=== PATIENT | male | born 1930 | race Caucasian/White ===

== ENCOUNTER 2017-07-12 21:14 | Inpatient (IN) | payer OTHER ==
[2017-07-12] MEDS ORDERED: morphine CARPU-JECT 4 MG/1 ML DISP.SYRIN IVPUSH ONE (22:34)
[2017-07-12] MEDS ORDERED: morphine CARPU-JECT 4 MG/1 ML DISP.SYRIN ONE (22:40)
[2017-07-12 23:17] LABS: BASOPHIL 0.4 % (0-2.0); EOSINOPHIL 1.3 % (0-4.5); MCH 33.1 pg (25.7-33.7); MCHC 34.1 g/dl (32.0-35.9); MEAN CELL VOLUME 97.1 fl (80-96); MEAN PLT VOLUME 7.5 fl (7.5-11.1); NEUTROPHILS 81.2 % (42.8-82.8); PLATELET COUNT 265 K/MM3 (134-434); RDW 13.4 % (11.9-15.9); WHITE BLOOD COUNT 10.4 K/mm3 (4.0-10.0)
--- NOTE | 2017-07-12 23:28 | PDOC ---
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 Patient reports that he " was making a turn around a corner" when he fell and hit his head on his dressed. He has a history of falls No recent travel or sick contacts. PAST MEDICAL HISTORY: Denies past medical history FAMILY HISTORY: Denies SOCIAL HISTORY: Denies tobacco, alcohol, illicit drug use. SURGICAL HISTORY: Denies ALLERGIES: No known drug allergies REVIEW OF SYSTEMS General/Constitutional: Denies fever or chills. Denies weakness, weight change. HEENT: Denies change in vision. Denies ear pain or discharge. Denies sore throat. Cardiovascular: Denies chest pain or shortness of breath. Respiratory: Denies cough, wheezing, or hemoptysis. Gastrointestinal: Denies nausea, vomiting, diarrhea or constipation. Denies rectal bleeding. Genitourinary: Denies dysuria, frequency, or change in urination. Musculoskeletal: Denies joint or muscle swelling or pain. Denies neck or back pain. Skin and breasts: Denies rash or easy bruising. Neurologic: Denies headache, vertigo, loss of consciousness, or loss of sensation. Psychiatric: Denies depression or anxiety. Endocrine: Denies increased thirst. Denies abnormal weight change. Hematologic/Lymphatic: Denies anemia, easy bleeding, or history of blood clots. Allergic/Immunologic: Denies hives or skin allergy. Denies latex allergy. PHYSICAL EXAM General Appearance: Well-appearing, appropriately dressed. No apparent distress. HEENT: EOMI, PERRLA, normal ENT inspection, normal voice, TMs normal, pharynx normal. No conjunctival pallor. No photophobia, scleral icterus. Neck: Supple. Trachea midline. No tenderness, rigidity, carotid bruit, stridor , lymphadenopathy, or thyromegaly. Respiratory/Chest: Lungs CTAB. No shortness of breath, chest tenderness, respiratory distress, accessory muscle use. No crackles, rales, rhonchi, stridor , wheezing, dullness Cardiovascular: RRR. S1, S2. No JVD, murmur, bradycardia, tachycardia. Vascular Pulses: Dorsalis-Pedis (R): 2+, Dorsalis-Pedis (L): 2+ Gastrointestinal/Abdominal: Normal bowel sounds. Abdomen soft, non-distended. No tenderness or rebound tenderness. No organomegaly, pulsatile mass, guarding , hernia, hepatomegaly, splenomegaly. Lymphatic: No adenopathy, tenderness. Musculoskeletal/Extremities: Normal inspection. FROM of all extremities, normal capillary refill. Pelvis Stable. No CVA tenderness. No tenderness to extremities, pedal edema, swelling, erythema or deformity. Integumentary: Appropriate color, dry, warm. No cyanosis, erythema, jaundice or rash Neurologic: handkerchief folder [id number] intact. Fully oriented, alert. Appropriate mood/affect. Motor strength 5/5. No appreciable EOM palsy, facial droop or sensory deficit. Past History - Past Medical History Allergies/Adverse Reactions: Allergies Allergy/AdvReac Type Severity Reaction Status Date / Time No Known Allergies Allergy Verified 07/12/17 22:32 Home Medications: Ambulatory Orders Levetiracetam [Keppra -] 500 mg PO BID 02/18/14 Simvastatin [Zocor -] 40 mg PO HS 02/18/14 Tamsulosin HCl [Flomax -] 0.4 mg PO DAILY 02/18/14 Omeprazole 40 mg PO ACBK 03/12/14 Clopidogrel Bisulfate [Clopidogrel] 75 mg PO DAILY 05/07/14 Metoprolol Succinate [Toprol XL -] 100 mg PO HS 05/07/14 Ergocalciferol (Vitamin D2) [Drisdol] 10,000 units PO WEEKLY 07/11/16 Finasteride [Proscar -] 5 mg PO DAILY 07/11/16 Carbidopa/Levodopa *Cr* 25/100 [Sinemet *Cr* 25/100 -] 1 combo PO BID 07/12/16 Phenytoin Na Extended [Dilantin -] 100 mg PO BID 07/12/16 Docusate Sodium [Colace -] 100 mg PO BID #60 capsule 07/14/16 Polyethylene Glycol 3350 [Miralax 119 gm Btl -] 17 gm PO DAILY #1 bottle Acetaminophen [Tylenol .Regular Strength -] 650 mg PO Q4H PRN #0 tablet Albuterol 0.083% Nebulizer Aida [Ventolin 0.083% Nebulizer Soln -] 1 amp NEB Q6H PRN #30 amp 09/14/16 Albuterol Sulfate Inhaler - [Ventolin HFA Inhaler -] 1 puff IH Q6H PRN #1 inhaler 09/14/16 Cefuroxime Axetil [Ceftin -] 500 mg PO BID #10 tablet 09/14/16 Anemia: No Asthma: No Cancer: No Cardiac Disorders: No CVA: Yes COPD: No CHF: No Dementia: No Diabetes: No GI Disorders: (GI bleed) Disorders: Yes (BPH) HTN: Yes Hypercholesterolemia: Yes Liver Disease: No Psychiatric Problems: Yes (anxiety) Seizures: Yes Thyroid Disease: No - Surgical History Abdominal Surgery: No Appendectomy: No Cardiac Surgery: No Cholecystectomy: No Lung Surgery: No Neurologic Surgery: No Orthopedic Surgery: No - Immunization History Td Vaccination: Yes TDAP Vaccination: Yes Immunization Up to Date: Yes - Psycho/Social/Smoking Cessation Hx Anxiety: No Suicidal Ideation: No Smoking Status: No Smoking History: Unknown if ever smoked Have you smoked in the past 12 months: No Number of Cigarettes Smoked Daily: 0 'Breaking Loose' booklet given: 05/22/12 Hx Alcohol Use: No Drug/Substance Use Hx: No Substance Use Type: None Hx Substance Use Treatment: No *Physical Exam - Vital Signs Last Vital Signs Temp Pulse Resp BP Pulse Ox 97.8 F 70 16 156/84 98 07/12/17 22:12 07/12/17 22:12 07/12/17 22:12 07/12/17 22:12 07/12/17 22:12 ED Treatment Course - LABORATORY CBC & Chemistry Diagram: 07/12/17 22:41 07/12/17 22:41 - ADDITIONAL ORDERS Additional order review: 07/12/17 22:41 RBC 3.56 L MCV 97.1 H MCHC 34.1 RDW 13.4 MPV 7.5 Neutrophils % 81.2 Lymphocytes % 9.1 Monocytes % 8.0 Eosinophils % 1.3 Basophils % 0.4 - RADIOLOGY Radiology Studies Ordered: Category Date Time Status CERVICAL SPINE CT W/O CONTR [CT] Stat CT Scan 07/12/17 22:[address] WITHOUT CONTRAST [CT] Urgent CT Scan 07/12/17 22:22 Ordered HIP & PELVIS-LEFT [RAD] Stat Radiology 07/12/17 22:22 Ordered RIBS-LEFT SIDE [RAD] Stat Radiology 07/12/17 22:48 Ordered - Medications Given in the ED: ED Medications Discontinued Medications Generic Name Dose Route Start Last Admin Trade Name Freq PRN Reason Stop Dose Admin Morphine Sulfate 4 mg 07/12/17 22:34 07/12/17 23:11 Morphine Injection - IVPUSH 07/12/17 22:35 4 mg ONCE ONE Administration *DC/Admit/Observation/Transfer Diagnosis at time of Disposition: Fracture of hip Qualifiers: Encounter type: subsequent encounter Fracture type: closed Laterality: left Mastoiditis Qualifiers: Laterality: bilateral Qualified Code(s): H70.93 - Unspecified mastoiditis, bilateral - Discharge Dispostion Admit: Yes
[2017-07-12 23:35] LABS: INR 1.13 (0.82-1.09); PROTHROMBIN TIME (PATIENT) 12.5 SEC (9.98-11.88)
[2017-07-12 23:37] LABS: ACTIVATED PTT 30.5 SECONDS (26.9-34.4)
[2017-07-12 23:44] LABS: ALBUMIN 3.6 g/dl (3.4-5.0); ANION GAP 9 (8-16); BILIRUBIN,TOTAL 0.3 mg/dL (0.2-1.0); CALCIUM 8.4 mg/dL (8.5-10.1); CO2 25 mmol/L (21-32); CREATININE 1.1 mg/dL (0.7-1.3); GLUCOSE,RANDOM 129 mg/dL (74-106); SGOT/AST 11 U/L (15-37); SGPT/ALT 11 U/L (12-78)
[2017-07-12 23:47] LABS: ALK PHOS 230 U/L (45-117); CPK 85 IU/L (39-308); TOT PROT 6.5 g/dl (6.4-8.2); TROPONIN I < 0.02 ng/ml (0.00-0.05)
--- NOTE | 2017-07-12 23:48 | PDOC ---
*Physical Exam - Vital Signs Last Vital Signs Temp Pulse Resp BP Pulse Ox 97.8 F 70 16 156/84 98 07/12/17 22:12 07/12/17 22:12 07/12/17 22:12 07/12/17 22:12 07/12/17 22:12 ED Treatment Course - LABORATORY CBC & Chemistry Diagram: 07/13/17 08:00 07/13/17 08:00 - ADDITIONAL ORDERS Additional order review: Laboratory Results 07/12/17 07/12/17 22:41 22:41 INR 1.13 PTT (Actin FS) 30.5 Magnesium 2.3 07/12/17 22:41 RBC 3.56 L MCV 97.1 H MCHC 34.1 RDW 13.4 MPV 7.5 Neutrophils % 81.2 Lymphocytes % 9.1 Monocytes % 8.0 Eosinophils % 1.3 Basophils % 0.4 - Medications Given in the ED: ED Medications Discontinued Medications Generic Name Dose Route Start Last Admin Trade Name Freq PRN Reason Stop Dose Admin Morphine Sulfate 4 mg 07/12/17 22:34 07/12/17 23:11 Morphine Injection - IVPUSH 07/12/17 22:35 4 mg ONCE ONE Administration Medical Decision Making - Medical Decision Making 07/12/17 23:47 agree with care from MEENA Schwartz *DC/Admit/Observation/Transfer Diagnosis at time of Disposition: Hip fracture, Mastoiditis
[2017-07-13] MEDS ORDERED: morphine CARPU-JECT 2 MG/1 ML DISP.SYRIN IVPUSH PRN ×2 (02:46→12:43)
[2017-07-13] MEDS ORDERED: HEPARIN NA (PORCINE) 5,000 UNITS/ML 1ML VIAL SQ ONE ×2 (02:46→03:45)
--- NOTE | 2017-07-13 02:55 | PN ---
Teaching Attending Note Name of Resident: Sherry Chery ATTENDING PHYSICIAN STATEMENT I saw and evaluated the patient. I reviewed the resident's note and discussed the case with the resident. I agree with the resident's findings and plan as documented. SUBJECTIVE: 87 yo M with pmhx of HTN, HLD, DVT, and IVC filter, BPH, CVA (13), Seizure DO, Parkinsons Dx, GI Bleed due to ulcers, Howard's Esophagus. Hip Fx on R. 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 Pt. States he was going to his dresser with his walker, when he missed grabbing his walker and fell. States he did not hit his head, but landed on L. Hip. No chest pain, pressure or palpitations. OBJECTIVE: Physical: VS: Vital Signs Period Temp Pulse Resp BP Sys/Baig Pulse Ox Last 24 Hr 97.8 F 70 16 156/84 98 GEN: NAD, Resting in bed HEENT: NCAT, PERRL, Throat without erythema or exudates CARD: RRR S1, S2 RESP: CTAB ABD: BSX4, NTD to palpation EXT: - C/C/E CBCD WBC 10.4 K/mm3 (4.0-10.0) H D 07/12/17 22:41 RBC 3.56 M/mm3 (4.00-5.60) L 07/12/17 22:41 Hgb 11.8 GM/dL (11.7-16.9) 07/12/17 22:41 Hct 34.5 % (35.4-49) L 07/12/17 22:41 MCV 97.1 fl (80-96) H 07/12/17 22:41 MCHC 34.1 g/dl (32.0-35.9) 07/12/17 22:41 RDW 13.4 % (11.9-15.9) 07/12/17 22:41 Plt Count 265 K/MM3 (134-434) 07/12/17 22:41 MPV 7.5 fl (7.5-11.1) 07/12/17 22:41 CMP Sodium 133 mmol/L (136-145) L 07/12/17 22:41 Potassium 4.9 mmol/L (3.5-5.1) 07/12/17 22:41 Chloride 99 mmol/L (98-107) 07/12/17 22:41 Carbon Dioxide 25 mmol/L (21-32) 07/12/17 22:41 Anion Gap 9 (8-16) 07/12/17 22:41 BUN 30 mg/dL (7-18) H D 07/12/17 22:41 Creatinine 1.1 mg/dL (0.7-1.3) D 07/12/17 22:41 Creat Clearance w eGFR > 60 (>60) 07/12/17 22:41 Random Glucose 129 mg/dL (74-106) H D 07/12/17 22:41 Calcium 8.4 mg/dL (8.5-10.1) L 07/12/17 22:41 Total Bilirubin 0.3 mg/dL (0.2-1.0) D 07/12/17 22:41 AST 11 U/L (15-37) L D 07/12/17 22:41 ALT 11 U/L (12-78) L D 07/12/17 22:41 Alkaline Phosphatase 230 U/L (45-117) H D 07/12/17 22:41 Total Protein 6.5 g/dl (6.4-8.2) D 07/12/17 22:41 Albumin 3.6 g/dl (3.4-5.0) D 07/12/17 22:41 CARDIAC ENZYMES Creatine Kinase 85 IU/L (39-308) 07/12/17 22:41 Troponin I < 0.02 ng/ml (0.00-0.05) D 07/12/17 22:41 Home Medications Medication Instructions Recorded Levetiracetam [Keppra -] 500 mg PO BID 02/18/14 Simvastatin [Zocor -] 40 mg PO HS 02/18/14 Tamsulosin HCl [Flomax -] 0.4 mg PO DAILY 02/18/14 Omeprazole 40 mg PO ACBK 03/12/14 Clopidogrel Bisulfate [Clopidogrel] 75 mg PO DAILY 05/07/14 Metoprolol Succinate [Toprol XL -] 100 mg PO HS 05/07/14 Ergocalciferol (Vitamin D2) 10,000 units PO WEEKLY 07/11/16 [Drisdol] Finasteride [Proscar -] 5 mg PO DAILY 07/11/16 Carbidopa/Levodopa *Cr* 25/100 1 combo PO BID 07/12/16 [Sinemet *Cr* 25/100 -] Phenytoin Na Extended [Dilantin -] 100 mg PO BID 07/12/16 Docusate Sodium [Colace -] 100 mg PO BID #60 capsule 07/14/16 Polyethylene Glycol 3350 [Miralax 17 gm PO DAILY #1 bottle 07/14/16 119 gm Btl -] Acetaminophen [Tylenol .Regular 650 mg PO Q4H PRN #0 tablet 09/06/16 Strength -] Albuterol 0.083% Nebulizer Aida 1 amp NEB Q6H PRN #30 amp 09/14/16 [Ventolin 0.083% Nebulizer Soln -] Albuterol Sulfate Inhaler - 1 puff IH Q6H PRN #1 inhaler 09/14/16 [Ventolin HFA Inhaler -] Cefuroxime Axetil [Ceftin -] 500 mg PO BID #10 tablet 09/14/16 Hip Xray: L. Hip Fracture CT HEAD: Bilateral Mastoiditis CT C-Spine: No acute Fracture ASSESSMENT AND PLAN: 87 yo M with pmhx of Seixure Do, Asthma, Parkinsons Do, BPH, who presents s/p mechanical fall and was found to have L. Hip Fx and Bilateral Mastoiditis 1.) L. Femur Fracture - NPO - IVF - Type & Screen - Coags - Repeat CBC - Ortho Consult 2.) Bilateral Mastoiditis - Vanco/Zosyn - ID consult 3.) Hx. Of Seizure DO - C/W home meds - Check Levels 4.) Asthma - C/W nebs prna 5.) Parkinsons DO - C/W meds 6.) Hx. OF Dvt - S/P IVC filter Place In Med-Sx
[2017-07-13] MEDS ORDERED: ALBUTEROL SO4 0.083% IH SOL 2.5 MG/3 ML VIAL.NEB. NEB PRN ×2 (02:58→12:43)
[2017-07-13] MEDS ORDERED: ALBUTEROL SO4 6.7 GM HFA INHALER IH PRN ×2 (02:58→12:43)
[2017-07-13] MEDS ORDERED: SODIUM CHLORIDE 1,000 ML IV SCH ×2 (03:00→12:43)
[2017-07-13] MEDS ORDERED: PIPERACILLIN/TAZOB 3.375 GM/50 ML PRE-DOCKED IVPB ONE (03:00)
--- NOTE | 2017-07-13 03:05 | HP ---
CHIEF COMPLAINT: S/p fall HISTORY OF PRESENT ILLNESS: Pt is a 87yo M w/ an extensive PMHx including Seizure Disorder, Parkinsons, prior CVA in 2012, frequent falls who presented s/p fall. The patient was with his home health aid Alvina who also assisted with the history. Patient states that he was ambulating with his walker, felt unsteady, and felt the walker slipping from his hands, subsequently fell. He stated he landed on his back, hit his head, hit his L hip. Prior to fall he denies headache, palpitations, CP , SOB, seizure. He denies LOC. Last seizure was over 1 year ago. He states compliance with all his medications, including seizure medications. The aid states that he has been falling more frequently, since the passing of his immediate family members (brother, sister, [id number]), causing recent stress in his life. Aid states that his mental status has been gradually declining. After the fall, patient complains of L hip pain, L chest pain, and generalized back pain. Denies headache, fevers, chills, SOB. ER course was notable for: (1) Morphine 4mg IV x1 (2) Imaging Recent Travel: Denies PAST MEDICAL HISTORY: CVA in 2013, Seizure Disorder, Parkinsons Disease, R sided Hip Fx, Blindness 2/2 Retinitis Pigmentosa, HTN, HLD, DVT, s/p IVC filter , BPH, GI Bleed 2/2 ulcers, Baretts Esophagus, PAST SURGICAL HISTORY: R hip corrective surgery Social History: Lives at home with home health aids Smoking: Denies Alcohol: Denies Drugs: Denies Family History: Noncontributory Allergies No Known Allergies Allergy (Verified 07/12/17 22:32) HOME MEDICATIONS: Home Medications Medication Instructions Recorded Levetiracetam [Keppra -] 500 mg PO BID 02/18/14 Simvastatin [Zocor -] 40 mg PO HS 02/18/14 Tamsulosin HCl [Flomax -] 0.4 mg PO DAILY 02/18/14 Omeprazole 40 mg PO ACBK 03/12/14 Clopidogrel Bisulfate [Clopidogrel] 75 mg PO DAILY 05/07/14 Metoprolol Succinate [Toprol XL -] 100 mg PO HS 05/07/14 Ergocalciferol (Vitamin D2) 10,000 units PO WEEKLY 07/11/16 [Drisdol] Finasteride [Proscar -] 5 mg PO DAILY 07/11/16 Carbidopa/Levodopa *Cr* 25/100 1 combo PO BID 07/12/16 [Sinemet *Cr* 25/100 -] Phenytoin Na Extended [Dilantin -] 100 mg PO BID 07/12/16 Docusate Sodium [Colace -] 100 mg PO BID #60 capsule 07/14/16 Polyethylene Glycol 3350 [Miralax 17 gm PO DAILY #1 bottle 07/14/16 119 gm Btl -] Acetaminophen [Tylenol .Regular 650 mg PO Q4H PRN #0 tablet 09/06/16 Strength -] Albuterol 0.083% Nebulizer Aida 1 amp NEB Q6H PRN #30 amp 09/14/16 [Ventolin 0.083% Nebulizer Soln -] Albuterol Sulfate Inhaler - 1 puff IH Q6H PRN #1 inhaler 09/14/16 [Ventolin HFA Inhaler -] Cefuroxime Axetil [Ceftin -] 500 mg PO BID #10 tablet 09/14/16 REVIEW OF SYSTEMS CONSTITUTIONAL: Absent: fever, chills, diaphoresis, generalized weakness, malaise, loss of appetite, weight change HEENT: Absent: rhinorrhea, nasal congestion, throat pain, throat swelling, difficulty swallowing, mouth swelling, ear pain, eye pain, visual changes CARDIOVASCULAR: Absent: syncope, palpitations, irregular heart rate, lightheadedness, peripheral edema Present: chest pain RESPIRATORY: Absent: cough, shortness of breath, dyspnea with exertion, orthopnea, wheezing, stridor, hemoptysis GASTROINTESTINAL: Absent: abdominal pain, abdominal distension, nausea, vomiting, diarrhea, constipation, melena, hematochezia GENITOURINARY: Absent: dysuria, frequency, urgency, hesitancy, hematuria, flank pain, genital pain MUSCULOSKELETAL: Absent: joint swelling, neck pain Present: myalgia, arthralgia, back pain SKIN: Absent: rash, itching, pallor HEMATOLOGIC/IMMUNOLOGIC: Absent: easy bleeding, easy bruising, lymphadenopathy, frequent infections ENDOCRINE: Absent: unexplained weight gain, unexplained weight loss, heat intolerance, cold intolerance NEUROLOGIC: Absent: headache, focal weakness or paresthesias, dizziness, unsteady gait, seizure, mental status changes, bladder or bowel incontinence PSYCHIATRIC: Absent: anxiety, depression, suicidal or homicidal ideation, hallucinations. PHYSICAL EXAMINATION Vital Signs - 24 hr 07/12/17 22:12 Temperature 97.8 F Pulse Rate 70 Respiratory 16 Rate Blood Pressure 156/84 O2 Sat by Pulse 98 Oximetry (%) GEN: AAOx3, at times mildly confused with the story (aid attributes this to gradual decline in mental state), lying in bed with head tilted back, normal ROM HEENT: Pt is legally blind in both eyes, pupils are not equal and reactive, able to move eyes in stated direction CV: S1, S2, RRR, TTP in L chest along rib-line midcostal LUNG: CTABL anteriorly ABD: Soft, NT, ND MSK: L hip swollen, deformity noted, L leg externally rotated, 5/5 MSK in UE and LE, 2+ pulses NEURO: CN 3-12 grossly intact, sensation equal and intact, MSK 5/5 Laboratory Results - last 24 hr 07/12/17 07/12/17 07/12/17 22:41 22:41 22:41 WBC 10.4 H D RBC 3.56 L Hgb 11.8 Hct 34.5 L MCV 97.1 H MCH 33.1 MCHC 34.1 RDW 13.4 Plt Count 265 MPV 7.5 Neutrophils % 81.2 Lymphocytes % 9.1 Monocytes % 8.0 Eosinophils % 1.3 Basophils % 0.4 INR 1.13 PTT (Actin FS) 30.5 Sodium 133 L Potassium 4.9 Chloride 99 Carbon Dioxide 25 Anion Gap 9 BUN 30 H D Creatinine 1.1 D Creat Clearance w eGFR > 60 Random Glucose 129 H D Lactic Acid Calcium 8.4 L Magnesium Total Bilirubin 0.3 D AST 11 L D ALT 11 L D Alkaline Phosphatase 230 H D Creatine Kinase 85 Troponin I < 0.02 D Total Protein 6.5 D Albumin 3.6 D 07/12/17 07/12/17 22:41 22:41 WBC RBC Hgb Hct MCV MCH MCHC RDW Plt Count MPV Neutrophils % Lymphocytes % Monocytes % Eosinophils % Basophils % INR PTT (Actin FS) Sodium Potassium Chloride Carbon Dioxide Anion Gap BUN Creatinine Creat Clearance w eGFR Random Glucose Lactic Acid 1.4 Calcium Magnesium 2.3 Total Bilirubin AST ALT Alkaline Phosphatase Creatine Kinase Troponin I Total Protein Albumin Home Medication List Medication Instructions Recorded Confirmed Type Levetiracetam [Keppra -] 500 mg PO BID 02/18/14 07/12/17 History Simvastatin [Zocor -] 40 mg PO HS 02/18/14 07/12/17 History Tamsulosin HCl [Flomax -] 0.4 mg PO DAILY 02/18/14 07/12/17 History Omeprazole 40 mg PO ACBK 03/12/14 07/12/17 History Clopidogrel Bisulfate [Clopidogrel] 75 mg PO DAILY 05/07/14 07/12/17 History Metoprolol Succinate [Toprol XL -] 100 mg PO HS 05/07/14 07/12/17 History Ergocalciferol (Vitamin D2) 10,000 units PO WEEKLY 07/11/16 07/12/17 History [Drisdol] Finasteride [Proscar -] 5 mg PO DAILY 07/11/16 07/12/17 History Carbidopa/Levodopa *Cr* 25/100 1 combo PO BID 07/12/16 07/12/17 History [Sinemet *Cr* 25/100 -] Phenytoin Na Extended [Dilantin -] 100 mg PO BID 07/12/16 07/12/17 History Active Medications Generic Name Dose Route Start Last Admin Trade Name Freq PRN Reason Stop Dose Admin Albuterol Sulfate 1 amp 07/13/17 02:58 Ventolin 0.083% Nebulizer Soln - NEB Q6H PRN SHORT OF BREATH/WHEEZING Albuterol Sulfate 1 puff 07/13/17 02:58 Ventolin Hfa Inhaler - IH Q6H PRN SHORT OF BREATH/WHEEZING Carbidopa/Levodopa 1 combo 07/13/17 10:00 Sinemet *Cr* 25/100 - PO BID SARAVANAN Docusate Sodium 100 mg 07/13/17 10:00 Colace - PO BID SARAVANAN Finasteride 5 mg 07/13/17 10:00 Proscar - PO DAILY SARAVANAN Sodium Chloride 1,000 mls @ 75 mls/hr 07/13/17 03:00 Normal Saline - IV ASDIR SARAVANAN Vancomycin HCl 1,500 mg/ 500 mls @ 250 mls/hr 07/13/17 02:56 Dextrose IVPB 07/13/17 04:55 ONCE ONE Protocol Levetiracetam 500 mg 07/13/17 10:00 Keppra - PO BID SARAVANAN Metoprolol Succinate 100 mg 07/13/17 22:00 Toprol Xl - PO HS SARAVANAN Morphine Sulfate 2 mg 07/13/17 02:46 Morphine Injection - IVPUSH Q4H PRN PAIN Non-Formulary Medication 40 mg 07/13/17 07:00 Omeprazole [Omeprazole] PO ACBK SARAVANAN Non-Formulary Medication 40 mg 07/13/17 22:00 Simvastatin PO HS SARAVANAN Phenytoin Sodium 100 mg 07/13/17 10:00 Dilantin - PO BID SARAVANAN Tamsulosin HCl 0.4 mg 07/13/17 10:00 Flomax - PO DAILY SARAVANAN IMAGING: CT Head - no acute traumatic pathology, bilateral mastoiditis R > L ( ) CT C-Spine - No fracture () XR Hip/Pelvis - L Hip fracture (read by medical team) XR Ribs - L 9th rib fracture (read by medical team) ASSESSMENT/PLAN: Pt is a 87yo M w/ an extensive PMHx including Seizure Disorder, Parkinsons, prior CVA in 2012, frequent falls who presented s/p fall. # Left Hip Fracture - Immobilization - Ortho consult Dr. Reese - Pain control w/ Morphine 2mg Q4 PRN - Type + Screen + Coags for this AM - NPO for possible surgery # L Rib Fracture - Pain control w/ Morphine # B/L Mastoiditis - likely chronic, pt asymptomatic, mild leuko - IV Vancomycin 1.5g x1 dose, ID to continue - IV Zosyn 3.375g x1 dose, ID to continue - ID consult - CBC in AM # Hyponatremia - mild - Start IVNS @ 75cc/hr - Prior echo from 2015 shows EF 62.5%, normal systolic function - BMP in AM # Elevated ALP - Pt has had chronically elevated ALP in past - No abdominal pain # Hx of Seizure Disorder - Continue Dilantin + Keppra - Levels pending # Prior Hx of CVA - Hold Plavix for surgery # HTN - Continue Toprol # HLD - Continue Statin # Hx of BPH - Continue Flomax - Continue Finasteride # ? Hx of Asthma - Continue Albuterol Nebs - Continue Ventolin PRN # Hx of Parkinsons - Continue Sinemet # Hx of Constipation - Continue Colace # FEN - Fluids: IVNS @ 75cc/hr - Electrolytes: Monitor Na+ - Nutrition: NPO for possible procedure # Prophylaxis - DVT: One dose of Heparin 5,000 SQ given now, continue after surgery - GI: Not indicated - Deconditioning: PT eval ordered # Dispo - Admit to Med/Surg - Await ortho reccs # Med Rec - Day team to contact patient's pharmacy in the AM Case was discussed with Dr. Izquierdo and Dr. Jaiden Chery MD - PGY1 Internal Medicine Visit type - Emergency Visit Emergency Visit: Yes ED Registration Date: 07/13/17 Care time: The patient presented to the Emergency Department on the above date and was hospitalized for further evaluation of their emergent condition. - New Patient This patient is new to me today: Yes Date on this admission: 07/13/17 - Critical Care Critical Care patient: No
[2017-07-13 03:33] VITALS: BMI 22.0
[2017-07-13] MEDS ORDERED: PIPERACILLIN/TAZOB 3.375 GM 3.375 GM in DEXTROSE 5%-WATER - 50 ML IVPB ONE (03:45)
[2017-07-13] MEDS ORDERED: DEXTROSE 5%-WATER - 50 ML IVPB ONE (03:50)
[2017-07-13] MEDS ORDERED: PIPERACILLIN/TAZOBACTAM 3.375 GM VIAL IVPB ONE (03:50)
[2017-07-13] MEDS ORDERED: VANCOMYCIN 1,500 MG in DEXTROSE 5%-WATER - 500 ML IVPB ONE (04:00)
[2017-07-13] MEDS ORDERED: PANTOPRAZOLE 40 MG TABLET (FP) PO SCH (07:00)
[2017-07-13] MEDS ORDERED: TAMSULOSIN HCL 0.4 MG CAP.ER.24H (FP) PO SCH (08:30)
--- NOTE | 2017-07-13 09:03 | PN ---
Progress Note (short form) - Note Progress Note: NEUROSURGERY CONSULT DICTATED Chart reviewed CT's reviewed/MRI reviewed H/o HTN, HLD, DVT s/p IVC filter, BPH, CVA, Seizure DO, Parkinsons Dx, GI Bleed due to ulcers, Howard's Esophagus. 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 Pt was going to his dresser with his walker, when he missed grabbing his walker and fell. Pt did not hit his head, but landed on L Hip. Denies neck pain or h/a. Denies increasing weakness, numbness or tingling. No new B/B dysfunction. PE: AF, VSS HEENT- NC/AT; Neck- hyperlordotic, no tenderness; Cor- RR; Lungs- CTA B; Abd- benign; Ext- no sign of DVT; L hip/thigh tender A/A/Ox2-3 CN- intact; Motor- 4+/5 except L LE 3/5 pain and fx limited; increased tone; Sensation- intact LT; DTR- hyporeflexic; cerebellar- resting tremor INR 1.26 CT head- moderate atrophy and periventricular small vessel dz C spine CT- L C1 posterior ring/laminar defect; ant C1 ring gap well corticated ; no spondylolisthesis; minimal prevertebral edema; multilevel spondylosis and DDD C spine MRI (prelim)- hyperlordosis; anterior C1 and L posterior laminar defect without significant edema; no cord impingement; multilevel DDD Fractures of C1 (Graham 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
[2017-07-13 09:04] LABS: MCH 32.8 pg (25.7-33.7); MCHC 34.3 g/dl (32.0-35.9); MEAN CELL VOLUME 95.6 fl (80-96); MEAN PLT VOLUME 7.5 fl (7.5-11.1); PLATELET COUNT 219 K/MM3 (134-434); RDW 13.3 % (11.9-15.9); WHITE BLOOD COUNT 6.6 K/mm3 (4.0-10.0)
[2017-07-13 09:16] LABS: INR 1.26 (0.82-1.09); PROTHROMBIN TIME (PATIENT) 13.9 SEC (9.98-11.88)
[2017-07-13 09:58] LABS: ANION GAP 12 (8-16); CALCIUM 8.1 mg/dL (8.5-10.1); CO2 23 mmol/L (21-32)
[2017-07-13] MEDS ORDERED: PHENYTOIN NA EXTENDED 100 MG CAPSULE (FP) PO SCH ×2 (10:00→22:00)
[2017-07-13] MEDS ORDERED: levETIRAcetam 500 MG TABLET (FP) PO SCH (10:00)
[2017-07-13] MEDS ORDERED: FINASTERIDE 5 MG TABLET (FP) PO SCH (10:00)
[2017-07-13] MEDS ORDERED: DOCUSATE SODIUM 100 MG CAPSULE (FP) PO SCH (10:00)
[2017-07-13 10:04] LABS: ALBUMIN 3.1 g/dl (3.4-5.0); ALK PHOS 205 U/L (45-117); BILIRUBIN,TOTAL 0.7 mg/dL (0.2-1.0); CREATININE 1.1 mg/dL (0.7-1.3); GLUCOSE,RANDOM 146 mg/dL (74-106); SGOT/AST 7 U/L (15-37); SGPT/ALT 12 U/L (12-78); TOT PROT 5.7 g/dl (6.4-8.2)
[2017-07-13] MEDS ORDERED: VANCOMYCIN 1,000 MG VIAL (RESTRICTED TO ID ONLY) IVPB ONE (10:15)
[2017-07-13 10:16] LABS: URINE APPEARANCE CLEAR; URINE BILIRUBIN NEGATIVE (NEGATIVE); URINE BLOOD NEGATIVE (NEGATIVE); URINE COLOR LTYELLOW; URINE GLUCOSE (UA) NEGATIVE (NEGATIVE); URINE KETONE NEGATIVE (NEGATIVE); URINE LEUK ESTERASE NEGATIVE (NEGATIVE); URINE NITRITE NEGATIVE (NEGATIVE); URINE PROTEIN NEGATIVE (NEGATIVE); URINE UROBILINOGEN NEGATIVE mg/dL (0.2-1.0)
--- NOTE | 2017-07-13 10:57 | PN ---
Progress Note (short form) - Note Progress Note: ID Consult dictated 87 year old male admitted s/p fall. 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 No evidence for otitis media; no bone erosion Empiric coverage, sinus pathogens with ceftriaxone with switch to po therapy next 24-48hr
--- NOTE | 2017-07-13 11:09 | CONSULT ---
Consult - text type - Consultation Consultation Note: FULL CONSULT DICTATED IMP: LEFT IT HIP FX PLAN: LEFT GAMMA NAIL
[2017-07-13] MEDS ORDERED: CEFTRIAXONE 1 GM in DEXTROSE 5%-WATER - 50 ML IVPB SCH (11:15)
[2017-07-13] MEDS ORDERED: PROPOFOL 20 ML ONE (11:20)
[2017-07-13] MEDS ORDERED: ceFAZolin SODIUM 1 GM VIAL ONE (11:20)
[2017-07-13] MEDS ORDERED: ETOMIDATE 20 MG/10 ML AMPUL IVPUSH ONE (11:20)
[2017-07-13] MEDS ORDERED: MIDAZOLAM HCL 2 MG/2 ML SINGLE DOSE VIAL ONE (11:20)
--- NOTE | 2017-07-13 11:33 | CONS ---
DATE OF CONSULTATION: 07/13/2017 REQUESTING PHYSICIAN: Vicente Reese MD BIOSTATISTICS DIRECTOR: Obdulio Saldivar MD, neurosurgery. CHIEF COMPLAINT: C1 ring fracture. HISTORY OF PRESENT ILLNESS: The patient is an 87-year-old right-handed male with history of Parkinson's disease, stroke, DVT status post IVC filter placement, hypertension, hypercholesterolemia, seizure disorder, peptic ulcer disease, and Barretts esophagus, who is status post fall yesterday. He was trying to walk to the dresser with his walker when he missed the walker and fell on the left side. He did not hit his head or neck. He denies left hip. He denies loss of consciousness. Presently, he denies any neck pain, increasing arm weakness, or numbness. He has been unsteady on his gait for some time already. He may have sustained other falls, but did not recall them specifically. He is examined at bedside after a completion of cervical spine MRI examination. PAST MEDICAL HISTORY: Is significant for hypertension, hypercholesterolemia, DVT, IVC filter, BPH, multiple strokes, seizure disorder, Parkinson's disease, peptic ulcer disease, Howard's esophagus. MEDICATIONS: Current medications include Flomax, Keppra, Ventolin, Toprol XL, Colace, Sinemet, Lipitor, Dilantin, Protonix, and Proscar. ALLERGIES: There are no known drug allergies. FAMILY HISTORY: Noncontributory. SOCIAL HISTORY: He does not smoke or drink. He is retired. REVIEW OF SYSTEMS: Otherwise negative for other major head and neck, cardiovascular, pulmonary, gastrointestinal, genitourinary, endocrinologic, neurologic, oncologic, or psychologic problems except for the above. PHYSICAL EXAMINATION: Vital signs: Temperature is 97.4, blood pressure is 124/61 with a pulse rate of 78, O2 saturation is 96% on room air. HEENT: Examination shows him to be normocephalic, atraumatic, anicteric. Neck: Supple. However, C spine is hyperextended at baseline, possibly secondary to Parkinson's disease. There is no significant tenderness to palpation. He is placed in a [place] J Collar by myself. Coronary: Examination demonstrated regular rhythm. Lungs: Clear bilaterally. Abdomen: Benign. Extremities: Examination shows no signs of DVT. Presently, he has tenderness to touch in his left lower extremity. Neurologic: He is awake and alert and oriented x2. Cranial nerve examination is intact 2-12. Motor examination shows 4+/5 strength with somewhat increased tone. Left lower extremity strength is 3/5 at best, limited by pain and the recent fracture. Sensory examination intact to light touch. Deep tendon reflexes are hyporeflexic throughout. There is no pathological long tract sign. Gait was not tested for safety reasons. Left cerebellar examination demonstrated resting tremor, right greater than left. LABORATORY EXAMINATION: Shows the white blood cell count to be 6.6, hemoglobin is 10.3, platelet count is 219,000. INR is 1.26; previously it was 1.13. Serum sodium is 133, potassium is 4.9, BUN is 30, creatinine is 1.1. CT scan of the head demonstrated moderate cerebral atrophy with moderate periventricular small vessel disease. There is no hydrocephalus. There is some opacification of the right mastoid sinuses, which could be secondary to ossification. There is no acute blood. CT scan of the cervical spine demonstrated hyperlordosis and multi-level degenerative disc disease and spondylosis. There is minimal degenerative spondylolisthesis at C6-C7. There is anterior C1 and ring gap with well corticated edges. There is also left-sided posterior C1 ring defect. There is no significant associated soft tissue swelling. MRI of the cervical spine per the reading demonstrated anterior ring C1 ring defect as well as left posterior C1 ring defect without associated edema or mass effect anteriorly. There might be mild left C1 laminar edema. There is no spinal cord compression at any level. There is multi-level degenerative disc disease with reversal of normal lordosis. There is no spinal cord edema or myelomalacia. IMPRESSION: 1. Probable chronic anterior C1 and acute-subcaute left posterior C1 ring fracture. 2. History of multiple strokes with moderate cerebral atrophy and periventricular small vessel disease. 3. Hypertension. 4. Parkinson's disease with falls. 5. Peptic ulcer disease. RECOMMENDATIONS: The patient presents with a fall with a left hip fracture by report. He does not have acute intracranial pathology. There is CT evidence and MRI evidence of C1 ring fractures. Most of it especially anteriorly appear to be chronic given the relative paucity of soft tissue edema and well corticated anterior ring edges. There is no spinal cord impingement at any level. No neurosurgical intervention is recommended or indicated in this elderly patient with multiple medical co- morbidities. He has been put in a [place] J Collar for 10 weeks. This should remain in place especially in light that he may require left hip procedure. He does have a somewhat elevated INR and medical clearance prior to orthopedic surgical treatment will be needed. Apparently the patient was also reportedly on Plavix previously, which could potentially delay his surgical treatment by the orthopedic surgeon. The above was discussed with patient at bedside. Pros and cons of cervical spine treatment as well as my recommendations were discussed. OBDULIO SALDIVAR M.D. PHILL/[id number] MTDD
[2017-07-13] MEDS ORDERED: PHENYLEPHRINE HCL 10 MG/1 ML SINGLE DOSE VIAL ONE (12:15)
--- NOTE | 2017-07-13 12:27 | OP ---
Operative Note - Note: Operative Date: 07/13/17 Pre-Operative Diagnosis: left femur inter trochanteric hip fracture Operation: left Gamma nail/intramedullary nail Implants: Sonu Gamma 3 nail, 100mm lag screw, 35mmdistal screw Surgeon: Torsten Soto [employer]ation Sales Advisor: Vicente Reese ([place] stringer) Anesthesiologist/STRIKE OUT MACHINE OPERATOR: Ileana Chaves Anesthesia: General Estimated Blood Loss (mls): 75 Drains, Volume Out (mls): 0 Blood Volume Replaced (mls): 0 Fluid Volume Replaced (mls): 500 Operative Report Dictated: Yes
[2017-07-13] MEDS ORDERED: ONDANSETRON 4 MG/2 ML VIAL IVPUSH PRN (12:40)
[2017-07-13] MEDS: morphine CARPU-JECT 2 MG/1 ML DISP.SYRIN IVPUSH PRN ×2 (12:48→13:24)
[2017-07-13] MEDS ORDERED: morphine CARPU-JECT 2 MG/1 ML DISP.SYRIN ONE ×2 (12:54→13:24)
--- NOTE | 2017-07-13 13:48 | CONS ---
INFECTIOUS DISEASE CONSULTATION DATE OF CONSULTATION: DATE OF DICTATION: 07/13/2017 HISTORY OF PRESENT ILLNESS: An 87-year-old male who was evaluated for right mastoiditis. The patient was admitted to the hospital on July 13, 2017, after a fall. He had sustained trauma to his left lower extremity and neck. On evaluation, he was found to have a left femoral intertrochanteric fracture as well as fracture of the C1 vertebra. An incidental finding on CAT scan was right mastoiditis. There was opacification of the right mastoid process. He was admitted to the hospital where he was evaluated by Orthopedics and Neurosurgery. He is presently to undergo a left total hip replacement. He has no complaints of headache or neck pain. He denies any earache or ear discharge. He has had no fever or chills. PAST MEDICAL HISTORY: Positive for: 1. Hypertension. 2. Hyperlipidemia. 3. BPH. 4. CVA. 5. Parkinsonism. 6. Seizure disorder. 7. DVT status post IVC filter. 8. Howard esophagus. 9. Retinitis pigmentosa. PAST SURGICAL HISTORY: Status post right total hip replacement. ALLERGIES: No known allergies. MEDICATIONS: At home include: 1. Keppra. 2. Zocor. 3. Flomax. 4. Plavix. 5. Toprol. 6. Proscar. 7. Carbidopa. 8. Dilantin. 9. Colace. SOCIAL HISTORY: He resides at home. No alcohol or tobacco use. SYSTEMS REVIEW: Neurologic: No loss of consciousness, seizure activity, or focal weakness. Cardiac: Negative chest pain or palpitations. Respiratory: Negative cough or sputum production. Gastrointestinal: Negative vomiting or diarrhea. Genitourinary: Negative for urinary tract infection. LABORATORY DATA: White count on admission of 10.4, presently 6.6, hematocrit of 29.9, and platelet count of 219. BUN of 29 and creatinine of 1.1. Total bilirubin of 0.7, alkaline phosphatase of 205, and AST of 7. Urinalysis is negative. PHYSICAL EXAMINATION: General: On examination, he is awake and alert in no acute distress. Vital Signs: Temperature of 97.4, blood pressure of 124/61, pulse of 78 and regular, and respirations of 20 per minute. HEENT: Sclerae are anicteric. There is no tenderness present over the mastoid sinuses bilaterally. Neck: A cervical collar is in place. Cardiovascular: Heart sounds S1, S2. Lungs: Clear. Abdomen: Soft, no tenderness elicited. No mass, rebound, or rigidity. Extremities: He has 1+ pedal edema. There is shortening and external rotation of the left lower extremity. IMPRESSION: An 87-year-old male admitted status post fall and found to have fractures of the C1 vertebral body and left femur. Incidental finding of right mastoiditis. 1. 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 2. Status post fall with C1 and left femur fracture. CAT scan of the head was reviewed with the radiologist. There is evidence of what appears to be a chronic effusion in the right mastoid sinus. There is no evidence of bone erosion. There is no evidence of middle ear infection. Would empirically cover sinus pathogens in the absence of clinical or radiographic evidence of chronic otitis media with ceftriaxone with a switch to oral therapy over the next 24 to 48 hours. Thank you for the kind referral. YUNIER WAGGONER M.D. [id number]
--- NOTE | 2017-07-13 13:55 | CONS ---
DATE OF CONSULTATION: 07/13/2017 ORTHOPEDIC CONSULTATION/[facility] Patient is an 87-year-old male with multiple medical conditions including seizure disorder, Parkinson's, previous CVA, and multiple falls. Patient had a right-hip pinning years ago, now fell and injured his back and his head and his left hip. He denies any lightheadedness, dizziness, blurry vision, negative LOC. His last seizure was over one year ago. Patient was found in the ER also to have a C1 fracture. Patient was evaluated by Dr. Obdulio Watkins, neurosurgeon, who evaluated him, and after CT scan and MRI were performed, recommended that the patient be treated in a [place] J Collar. PHYSICAL EXAMINATION: Left lower extremity showed an external rotated, marked increased pain with marked internal and external rotation. Full range of motion in the ankles and toes. Otherwise, neurovascularly intact. IMAGING: X-rays showed a displaced left intertrochanteric hip fracture status post gamma nailing in his right hip. IMPRESSION: Left intertrochanteric hip fracture in a patient with multiple medical conditions with potentially an acute C1 fracture and is on Plavix. Patient will be booked for surgery for left gamma nailing. As patient is on Plavix, we were unable to get a spinal, but since he is in a J Collar, anesthesia will need to do a fiberoptic intubation, but will be able to fix his hip today and get him out of bed JEFF. Continue him per his medical conditions. Patient, although with multiple medical problems and high risk, the best course of action is to fix his hip and get him out of bed as soon as possible. Of note, patient also has a potential of a left 9th rib fracture, but has minimal pain in that region. Patient will be picked for this afternoon for surgery. LYNSEY BOSTON M.D. [id number]/[id number]
--- NOTE | 2017-07-13 14:16 | SPEC ---
DATE OF SURGERY: 07/13/2017 OPERATION: Left Gamma nail. PREOPERATIVE DIAGNOSIS: Left femur intertrochanteric fracture. POSTOPERATIVE DIAGNOSIS: Left femur intertrochanteric fracture. SURGEON: Lele Silveira M.D. ELECTRONICS TECH: Vicente Reese MD SECOND ELECTRONICS TECH: TOAN Jimenez ANESTHESIOLOGIST: Ileana Chaves MD ANESTHESIA: LMA. BLOOD LOSS: 75 ml. FLUID REPLACEMENT: 500 mL Plasmalyte. DRAINS: None. COMPLICATIONS: None. This patient is an 87-year-old male with a preoperative diagnosis of a left femur intertrochanteric hip fracture. After understanding the potential risks, complications, alternatives, benefits of surgery, risks of nonsurgical treatment, the patient elected to undergo this procedure. He understands there is a risk of nonunion, infection, need for additional surgery, decreased function, need for removal of hardware, etc. PROCEDURE: Patient was brought to the operating room. Peripheral IV placed, IV sedation given. One gram of IV Ancef was given. General anesthesia was induced. The patient had ample Webril placed around the peroneal post in both ankles. The patient was placed onto the fracture table with a slight longitudinal traction and internal rotation. X-rays were taken documenting excellent reduction of the fracture in the AP and lateral planes. Next, an incision was made over the proximal aspect of the greater trochanter. Subcutaneous hemostasis was achieved with a Bovie cautery, dissection done through the lateral fascia to the top of the greater trochanter. A [place] elevator was used to take off the soft tissue from the starting point. Under direct visualization a partially threaded guide-wire was placed through the standard starting position, into the proximal femur, passed the fracture fragment into the medullary canal. It was documented to be in excellent position in AP, lateral and multiple oblique planes. Next, we used the proximal 17 mm cannulated reamer and put in a standard titanium Sonu Gamma 3 125 degree, 180 mm trochanteric nail. This was put in cannulated fashion to appropriate depth and using the external guide in a standard fashion, first using external jig, using a threaded guide-wire, replaced the lag screw, guide pin to the lateral aspect of the femur. The prosthesis and up to the femoral neck and head, looked to be in excellent position in a center central position, perhaps slightly posterior and slightly inferior in both AP and lateral planes. We measured it at an 80 mm screw. The cannulated drill was used to drill it to this leg and then we put in an 100 mm titanium lag screw. We achieved excellent compression and overall the position of the hardware in the fracture fragments looked excellent. We locked it in place with a proximal set screw, we altered the external jig to the static position and using the standard technique put in a distal interlocking screw under direct visualization of 35 mm in length. This locked the nail distally. We removed the external jig. We repeated x-rays in AP, lateral and multiple oblique planes and overall I was quite happy with the position of the fracture reduction, the length of the screw, the position of the hardware. Final x-rays were taken. The area was copiously irrigated and washed out. The deep fascial layer was closed with 0 Vicryl sutures. The deep dermal layer was closed with 2-0 Vicryl. Final skin approximation was done with jusitn. The area was then washed and dried, covered with Xeroform gauze, 4 x 4 gauze, ABD and tape. Patient was taken down off the fracture table in stable condition. There were no complications during the case. Total operative time was about 30 minutes. There were no complications during the case. The patient tolerated the procedure well, was brought to the ambulatory recovery room in stable condition. LELE SILVEIRA M.D. [id number]
--- NOTE | 2017-07-13 14:47 | EKG ---
Test Reason : Blood Pressure : / mmHG Vent. Rate : 079 BPM Atrial Rate : 079 BPM P-R Int : 214 ms QRS Dur : 114 ms QT Int : 416 ms P-R-T Axes : 030 -85 021 degrees QTc Int : 477 ms SINUS RHYTHM WITH 1ST DEGREE A-V BLOCK RIGHT BUNDLE BRANCH BLOCK LEFT ANTERIOR FASCICULAR BLOCK BIFASCICULAR BLOCK SEPTAL INFARCT , AGE UNDETERMINED ABNORMAL ECG WHEN COMPARED WITH ECG OF 09-SEP-2016 12:27, [place] INTERVAL HAS INCREASED VENT. RATE HAS DECREASED BY 67 BPM SEPTAL INFARCT IS NOW PRESENT Confirmed by JEFF SANDERSON, ERINN ([id number]) on 07/13/2017 2:47:21 PM Referred By: Confirmed By:ERINN AGUILAR MD
--- NOTE | 2017-07-13 14:54 | EKG ---
Test Reason : Blood Pressure : / mmHG Vent. Rate : 101 BPM Atrial Rate : 101 BPM P-R Int : 206 ms QRS Dur : 110 ms QT Int : 368 ms P-R-T Axes : 082 268 030 degrees QTc Int : 477 ms SINUS TACHYCARDIA PULMONARY DISEASE PATTERN RIGHT BUNDLE BRANCH BLOCK SEPTAL INFARCT (CITED ON OR BEFORE 13-JUL-2017) ABNORMAL ECG WHEN COMPARED WITH ECG OF 13-JUL-2017 02:39, Confirmed by ERINN AGUILAR MD ([id number]) on 07/13/2017 2:53:44 PM Referred By: Nicole SIMMS Confirmed By:ERINN AGUILAR MD
[2017-07-13] MEDS ORDERED: VANCOMYCIN 1 GRAM (PRE-DOCKED) 250 ML IVPB ONE (16:00)
[2017-07-13] MEDS ORDERED: VANCOMYCIN 1,000 MG in DEXTROSE 5%-WATER - 250 ML IVPB ONE (16:00)
--- NOTE | 2017-07-13 19:39 | PN ---
Teaching Attending Note Name of Resident: [place] ATTENDING PHYSICIAN STATEMENT I saw and evaluated the patient. I reviewed the resident's note and discussed the case with the resident. I agree with the resident's findings and plan as documented. SUBJECTIVE: seen right after his hip sx . slightly sedated and minimally cooperative denied any pain or SOB OBJECTIVE: NAD , arousable . collar on . CV: RRR Lungs : CTAB anteriorly Abd : soft, NT, ND , NL BS Ext : L lateral hip surgical dressing . DP 2+ b/l . Neuro , difficult to perform, no facial droop, EOMI, strength 5/5 in upper ext proximally and distally , LLE : can move ankle and otes. RLE proximal and distal strength 5/5 . not cooperative with reflex exam. nl sensation ASSESSMENT AND PLAN: 87 y/o man with h/o HTN, HLD, DVT, and IVC filter, BPH, CVA (13), Seizure DO, Parkinsons Dx, GI Bleed due to ulcers, Howard's Esophagus. He resented with L hip pain after a mechanical fall 1- L hip Fx : s/p Gamma nailing - cont DVT px with lovenox - pain control 2- 8th rib Fx . cont morphine can use lidocaine patch if needed 3- C1 Fx : with no neuro deficit - appreciate neuro sx input - Collar . no surgical intervention 4- Possible chronic lastoiditis , seen accidentally on CT. - CTX , switch to oral in 24 hr 5- HTN, h/o Seizure . cont home meds HLOC PT eval
[2017-07-13] MEDS: DOCUSATE SODIUM 100 MG CAPSULE (FP) PO SCH (21:09)
[2017-07-13] MEDS: levETIRAcetam 500 MG TABLET (FP) PO SCH (21:09)
[2017-07-13] MEDS: ATORVASTATIN CA 20 MG TABLET (FP) PO SCH (21:09)
[2017-07-13] MEDS ORDERED: METOPROLOL SUCCINATE 100 MG TAB.SR.24H (FP) PO SCH ×2 (22:00)
[2017-07-13] MEDS ORDERED: ATORVASTATIN CA 20 MG TABLET (FP) PO SCH (22:00)
--- NOTE | 2017-07-13 22:28 | PN ---
Physical Exam: SUBJECTIVE: Patient seen and examined. This AM, pt reports that he has L hip pain. He endorses some right chest pain after his fall as well. However, he denies SOB, loss of motor or sensory function, bowel or urinary incontinence, or any other complaint. OBJECTIVE: Vital Signs Period Temp Pulse Resp BP Sys/Baig Pulse Ox Last 24 Hr 97.4 F-99.6 F 60-102 16-20 98-134/31-78 95-100 GENERAL: The patient is awake, alert, and fully oriented, in mild distress. HEAD: Normal with no signs of trauma. EYES: pupil pinpoint, extraocular movements intact, sclera anicteric, conjunctiva clear. No ptosis. ENT: Ears normal, nares patent, oropharynx clear without exudates, moist mucous membranes. NECK: Trachea midline, full range of motion, supple. LUNGS: Breath sounds equal, clear to auscultation bilaterally, no wheezes, no crackles, no accessory muscle use. HEART: Regular rate and rhythm, S1, S2 without murmur, rub or gallop. ABDOMEN: Soft, nontender, nondistended, normoactive bowel sounds, no guarding, no rebound, no hepatosplenomegaly, no masses. EXTREMITIES: L hip tender to palpation, unable to move left leg much due to pain NEUROLOGICAL: Cranial nerves II through XII grossly intact. 5/5 muscle strength and intact sensory function, Normal speech, gait not observed. PSYCH: Normal mood, normal affect. SKIN: Warm, dry, normal turgor, no rashes or lesions noted Laboratory Results - last 24 hr 07/13/17 07/13/17 07/13/17 05:00 08:00 08:00 WBC 6.6 D RBC 3.12 L Hgb 10.3 L D Hct 29.9 L MCV 95.6 MCH 32.8 MCHC 34.3 RDW 13.3 Plt Count 219 MPV 7.5 INR 1.26 H Sodium Potassium Chloride Carbon Dioxide Anion Gap BUN Creatinine Creat Clearance w eGFR Random Glucose Calcium Total Bilirubin AST ALT Alkaline Phosphatase Total Protein Albumin Urine Color Ltyellow Urine Appearance Clear Urine pH 7.0 D Ur Specific [place] 1.015 Urine Protein Negative Urine Glucose (UA) Negative Urine Ketones Negative Urine Blood Negative Urine Nitrite Negative Urine Bilirubin Negative Urine Urobilinogen Negative Ur Leukocyte Esterase Negative Blood Type Antibody Screen 07/13/17 07/13/17 07/13/17 08:00 08:00 08:00 WBC RBC Hgb Hct MCV MCH MCHC RDW Plt Count MPV INR Sodium Cancelled 133 L Potassium Cancelled 4.5 Chloride Cancelled 98 Carbon Dioxide Cancelled 23 Anion Gap Cancelled 12 BUN Cancelled 29 H Creatinine Cancelled 1.1 Creat Clearance w eGFR > 60 Random Glucose Cancelled 146 H Calcium Cancelled 8.1 L Total Bilirubin 0.7 D AST 7 L D ALT 12 Alkaline Phosphatase 205 H Total Protein 5.7 L Albumin 3.1 L Urine Color Urine Appearance Urine pH Ur Specific [place] Urine Protein Urine Glucose (UA) Urine Ketones Urine Blood Urine Nitrite Urine Bilirubin Urine Urobilinogen Ur Leukocyte Esterase Blood Type A POSITIVE Antibody Screen Negative Active Medications Generic Name Dose Route Start Last Admin Trade Name Freq PRN Reason Stop Dose Admin Albuterol Sulfate 1 amp 07/13/17 12:43 Ventolin 0.083% Nebulizer Soln - NEB Q6H PRN SHORT OF BREATH/WHEEZING Albuterol Sulfate 1 puff 07/13/17 12:43 Ventolin Hfa Inhaler - IH Q6H PRN SHORT OF BREATH/WHEEZING Atorvastatin Calcium 20 mg 07/13/17 22:00 07/13/17 21:09 Lipitor - PO 20 mg HS SARAVANAN Administration Carbidopa/Levodopa 1 combo 07/13/17 22:00 07/13/17 21:09 Sinemet *Cr* 25/100 - PO 1 combo BID SARAVANAN Administration Docusate Sodium 100 mg 07/13/17 22:00 07/13/17 21:09 Colace - PO 100 mg BID SARAVANAN Administration Enoxaparin Sodium 40 mg 07/14/17 10:00 Lovenox - SQ DAILY SARAVANAN Finasteride 5 mg 07/14/17 10:00 Proscar - PO DAILY SARAVANAN Ceftriaxone Sodium 1 gm/ 50 mls @ 100 mls/hr 07/14/17 10:00 Dextrose IVPB DAILY SARAVANAN Sodium Chloride 1,000 mls @ 75 mls/hr 07/13/17 12:43 07/13/17 15:00 Normal Saline - IV 75 mls/hr ASDIR SARAVANAN Administration Levetiracetam 500 mg 07/13/17 22:00 07/13/17 21:09 Keppra - PO 500 mg BID SARAVANAN Administration Metoprolol Succinate 100 mg 07/13/17 22:00 07/13/17 21:12 Toprol Xl - PO Not Given HS SARAVANAN Morphine Sulfate 2 mg 07/13/17 12:43 Morphine Injection - IVPUSH Q4H PRN PAIN Pantoprazole Sodium 40 mg 07/14/17 07:00 Protonix - PO ACBK SARAVANAN Phenytoin Sodium 100 mg 07/14/17 06:00 Dilantin - PO Q12H SARAVANAN Tamsulosin HCl 0.4 mg 07/14/17 08:30 Flomax - PO DAILY@0830 [facility] ASSESSMENT/PLAN: Pt is a 87yo M w/ an extensive PMHx including Seizure Disorder, Parkinsons, prior CVA in 2012, frequent falls who presented s/p fall, found to have L hip fracture, C1 and C2 fractures, and L rib fracture. #C1 and C2 fracture -CT C-spine- acute fracture of C1 and odontoid base and subluxation of atlantoaxial joint -MRI w/o contrast C-spine- no evidence of spinal cord compression -per neurosurgery, no intervention required. continue [place] J collar for 10 weeks as precaution # Left Hip Fracture - ortho on board -pt underwent gamma nail hip surgery today - Pain control # L Rib Fracture - Pain control # B/L Mastoiditis - likely chronic, pt asymptomatic, mild leuko - ID on board. Per recs, likely chronic, continue ceftriaxone for 24-48 hours and then switch to oral therapy to be sure. # Hyponatremia - mild - IVNS @ 75cc/hr - Prior echo from 2016 shows EF 62.5%, normal systolic function - trend BMP # Elevated ALP - Pt has had chronically elevated ALP in past - No abdominal pain # Hx of Seizure Disorder - Continue Dilantin + Keppra - Levels pending # Prior Hx of CVA - Hold Plavix for surgery # HTN - Continue Toprol # HLD - Continue Statin # Hx of BPH - Continue Flomax - Continue Finasteride # ? Hx of Asthma - Continue Albuterol Nebs - Continue Ventolin PRN # Hx of Parkinsons - Continue Sinemet # Hx of Constipation - Continue Colace # FEN - Fluids: IVNS @ 75cc/hr - Electrolytes: Monitor Na+ - Nutrition: # Prophylaxis - DVT: Heparin 5,000 SQ - GI: Not indicated - Deconditioning: PT ryley Leon MD- PGY1 Visit type - Emergency Visit Emergency Visit: Yes ED Registration Date: 07/13/17 Care time: The patient presented to the Emergency Department on the above date and was hospitalized for further evaluation of their emergent condition. - New Patient This patient is new to me today: Yes Date on this admission: 07/13/17 - Critical Care Critical Care patient: No
[2017-07-14] MEDS: SODIUM CHLORIDE 1,000 ML IV SCH ×2 (02:40→03:43)
[2017-07-14] MEDS ORDERED: PHENYTOIN NA EXTENDED 100 MG CAPSULE (FP) PO SCH (06:00)
[2017-07-14] MEDS: PANTOPRAZOLE 40 MG TABLET (FP) PO SCH (06:10)
[2017-07-14 07:28] LABS: MCH 33.1 pg (25.7-33.7); MCHC 34.3 g/dl (32.0-35.9); MEAN CELL VOLUME 96.8 fl (80-96); MEAN PLT VOLUME 7.7 fl (7.5-11.1); PLATELET COUNT 135 K/MM3 (134-434); RDW 13.3 % (11.9-15.9); WHITE BLOOD COUNT 6.9 K/mm3 (4.0-10.0)
[2017-07-14 07:53] LABS: ANION GAP 7 (8-16); CALCIUM 7.5 mg/dL (8.5-10.1); CO2 26 mmol/L (21-32); GLUCOSE,RANDOM 117 mg/dL (74-106)
[2017-07-14 07:55] LABS: CREATININE 1.6 mg/dL (0.7-1.3)
[2017-07-14] MEDS: TAMSULOSIN HCL 0.4 MG CAP.ER.24H (FP) PO SCH (08:09)
--- NOTE | 2017-07-14 08:35 | PN ---
Progress Note (short form) - Note Progress Note: NEUROSURGERY Denies neck pain or h/a. Denies increasing weakness, numbness or tingling. Wants to take collar off to eat - rationale for immobilization discussed, position adjustment d/w pt and aide PE: AF, VSS HEENT- NC/AT; Neck- hyperlordotic, no tenderness; Cor- RR; Lungs- CTA B; Abd- benign; Ext- no sign of DVT; L hip/thigh tender A/A/Ox2-3 CN- intact; Motor- 4+/5 except L LE 3/5 pain and fx limited; Sensation- intact LT; DTR- hyporeflexic; cerebellar- resting tremor CT head- moderate atrophy and periventricular small vessel dz C spine CT- L C1 posterior ring/laminar defect; ant C1 ring gap well corticated ; no spondylolisthesis; minimal prevertebral edema; multilevel spondylosis and DDD C spine MRI - hyperlordosis; anterior C1 ring defect without significant edema; L C1 laminar fx; no cord impingement; multilevel DDD/spondylosis Fractures of C1 (Graham variant) likely chronic anteriorly and acute- subacute posterior L C1 laminar fx though edema mild [place] J collar x 10 weeks C spine x-rays ap-lat to f/u C1-2 alignment in 2 weeks
[2017-07-14] MEDS ORDERED: cefTRIAXone SODIUM 1 GM VIAL ONE (09:25)
[2017-07-14] MEDS ORDERED: DEXTROSE 5%-WATER - 50 ML IVPB ONE (09:25)
[2017-07-14] MEDS: DOCUSATE SODIUM 100 MG CAPSULE (FP) PO SCH ×2 (09:41→22:17)
[2017-07-14] MEDS: ENOXAPARIN NA (PORCINE) 40 MG/0.4 ML DISP.SYRIN SQ SCH (09:42)
[2017-07-14] MEDS: FINASTERIDE 5 MG TABLET (FP) PO SCH (09:42)
[2017-07-14] MEDS: levETIRAcetam 500 MG TABLET (FP) PO SCH ×2 (09:47→21:22)
--- NOTE | 2017-07-14 09:50 | PN ---
Progress Note (short form) - Note Progress Note: Pt seen and examined. He is comfortable. No c/o severe pain, hip doing well. No CP, no SOB, no tachycardia. AVSS H/H did drop to 8.3/24.2, but pt is asymptomatic PE LLE looks good, dressing CDI NVI, good ROM with min pain Overall doing very well on POD #1 s/p left Gamma nail. Rec P.T., PWB LLE, if the pt can do it DC planning
[2017-07-14] MEDS ORDERED: CEFTRIAXONE 1 GM in DEXTROSE 5%-WATER - 50 ML IVPB SCH (10:00)
[2017-07-14] MEDS ORDERED: ENOXAPARIN NA (PORCINE) 40 MG/0.4 ML DISP.SYRIN SQ SCH (10:00)
--- NOTE | 2017-07-14 10:31 | PN ---
Progress Note (short form) - Note Progress Note: Anesthesia POD#1 S/P Left Gamma nail insertion under GA Doing well,VSS,no pain,neck is fine. Hg dropped to 8.3 but asymptomatic. Ileana Chaves MD
[2017-07-14] MEDS ORDERED: oxyCODONE HCL 5 MG TABLET PO PRN (11:32)
--- NOTE | 2017-07-14 12:25 | PN ---
Progress Note, Physician History of Present Illness: S/P ORIF L femur No c/o leg pain No c/o headache or neck pain No ear pain or discharge Afebrile - Current Medication List Current Medications: Active Medications Albuterol Sulfate (Ventolin 0.083% Nebulizer Soln -) 1 amp NEB Q6H PRN PRN Reason: SHORT OF BREATH/WHEEZING Albuterol Sulfate (Ventolin Hfa Inhaler -) 1 puff IH Q6H PRN PRN Reason: SHORT OF BREATH/WHEEZING Atorvastatin Calcium (Lipitor -) 20 mg PO HS [facility] Last Admin: 07/13/17 21:09 Dose: 20 mg Carbidopa/Levodopa (Sinemet *Cr* 25/100 -) 1 combo PO BID [facility] Last Admin: 07/14/17 09:42 Dose: 1 combo Docusate Sodium (Colace -) 100 mg PO BID [facility] Last Admin: 07/14/17 09:41 Dose: 100 mg Enoxaparin Sodium (Lovenox -) 40 mg SQ DAILY [facility] Last Admin: 07/14/17 09:42 Dose: 40 mg Finasteride (Proscar -) 5 mg PO DAILY [facility] Last Admin: 07/14/17 09:42 Dose: 5 mg Ceftriaxone Sodium 1 gm/ (Dextrose) 50 mls @ 100 mls/hr IVPB DAILY [facility] Last Admin: 07/14/17 09:42 Dose: 100 mls/hr Sodium Chloride (Normal Saline -) 1,000 mls @ 100 mls/hr IV ASDIR [facility] Last Admin: 07/14/17 03:43 Dose: Not Given Levetiracetam (Keppra -) 500 mg PO BID [facility] Last Admin: 07/14/17 09:47 Dose: 500 mg Metoprolol Succinate (Toprol Xl -) 50 mg PO [facility] Oxycodone HCl (Roxicodone -) 2.5 mg PO Q6H PRN PRN Reason: PAIN Pantoprazole Sodium (Protonix -) 40 mg PO ACBK [facility] Last Admin: 07/14/17 06:10 Dose: 40 mg Tamsulosin HCl (Flomax -) 0.4 mg PO DAILY@0830 [facility] Last Admin: 07/14/17 08:09 Dose: 0.4 mg - Objective Vital Signs: Vital Signs Temperature 98.2 F 07/14/17 08:32 Pulse Rate 76 07/14/17 08:32 Respiratory Rate 20 07/14/17 09:00 Blood Pressure 113/60 07/14/17 08:32 O2 Sat by Pulse Oximetry (%) 99 07/14/17 09:00 Constitutional: Yes: No Distress Eyes: Yes: Conjunctiva Clear HENT: Yes: Other (no tenderness over R mastoid) Cardiovascular: Yes: Regular Rate and Rhythm, S1, S2 Respiratory: Yes: Diminished Gastrointestinal: Yes: Normal Bowel Sounds, Soft. No: Tenderness Labs: CBC, BMP 07/14/17 06:30 07/14/17 06:30 INR, PTT INR 1.26 (0.82-1.09) H 07/13/17 08:00 Assessment/Plan S/P ORIF L femur S/P C1 fracture Chronic R mastoiditis/ effusion Substitute po Augmentin x 10d
[2017-07-14] MEDS ORDERED: ACETAMINOPHEN 325 MG TABLET (FP) PO PRN (12:36)
[2017-07-14] MEDS ORDERED: CLOPIDOGREL BISULFATE 75 MG TABLET (FP) PO SCH (12:45)
[2017-07-14] MEDS: CLOPIDOGREL BISULFATE 75 MG TABLET (FP) PO SCH (13:34)
[2017-07-14 14:20] LABS: INR 1.31 (0.82-1.09); PROTHROMBIN TIME (PATIENT) 14.5 SEC (9.98-11.88)
[2017-07-14 14:23] LABS: ACTIVATED PTT 30.3 SECONDS (26.9-34.4)
[2017-07-14 14:50] LABS: BASOPHIL 0.3 % (0-2.0); EOSINOPHIL 0.8 % (0-4.5); MCH 33.1 pg (25.7-33.7); MCHC 34.2 g/dl (32.0-35.9); MEAN CELL VOLUME 96.9 fl (80-96); MEAN PLT VOLUME 8.2 fl (7.5-11.1); NEUTROPHILS 76.8 % (42.8-82.8); PLATELET COUNT 131 K/MM3 (134-434); RDW 13.5 % (11.9-15.9); WHITE BLOOD COUNT 5.7 K/mm3 (4.0-10.0)
--- NOTE | 2017-07-14 16:23 | PN ---
Physical Exam: SUBJECTIVE: Patient seen and examined. Overnight, pt had low BP, so his NS was changed to 100cc/hr, and his toprol was held. This am, Pt reports minimal L hip pain that is well controlled. He denies headache, SOB, chest pain, abdominal pain, nausea or emesis, numbness, urinary or bowel incontinence, dysuria, motor weakness, or decreased sensory function. He states that he has not had a bowel movement since his surgery. OBJECTIVE: Vital Signs Period Temp Pulse Resp BP Sys/Baig Pulse Ox Last 24 Hr 97.6 F-99.5 F 74-86 17-20 90-113/50-60 99-100 GENERAL: The patient is awake, alert, and fully oriented, in no acute distress. HEAD: Normal with no signs of trauma. EYES: extraocular movements intact, sclera anicteric, conjunctiva clear. No ptosis. ENT: Ears normal, nares patent, oropharynx clear without exudates, moist mucous membranes. NECK: Trachea midline, full range of motion, supple. LUNGS: Breath sounds equal, clear to auscultation bilaterally, no wheezes, no crackles, no accessory muscle use. HEART: Regular rate and rhythm, S1, S2 without murmur, rub or gallop. ABDOMEN: Soft, nontender, nondistended, normoactive bowel sounds, no guarding, no rebound, no hepatosplenomegaly, no masses. Hips: L hip is minimally tender to palpation. 2 adhesive bandages are on posterior hip. EXTREMITIES: 2+ pulses, warm, well-perfused, no edema. NEUROLOGICAL: Cranial nerves II through XII grossly intact. Normal speech, gait not observed. PSYCH: Normal mood, normal affect. SKIN: Warm, dry, normal turgor, no rashes or lesions noted Laboratory Results - last 24 hr 07/14/17 07/14/17 07/14/17 06:30 06:30 13:59 WBC 6.9 RBC 2.50 L Hgb 8.3 L D Hct 24.2 L D MCV 96.8 H MCH 33.1 MCHC 34.3 RDW 13.3 Plt Count 135 D MPV 7.7 Neutrophils % Lymphocytes % Monocytes % Eosinophils % Basophils % INR 1.31 H PTT (Actin FS) 30.3 Sodium 137 Potassium 5.3 H Chloride 104 Carbon Dioxide 26 Anion Gap 7 L BUN 39 H D Creatinine 1.6 H D Random Glucose 117 H Calcium 7.5 L 07/14/17 13:59 WBC 5.7 RBC 2.15 L Hgb 7.1 L D Hct 20.8 L MCV 96.9 H MCH 33.1 MCHC 34.2 RDW 13.5 Plt Count 131 L MPV 8.2 Neutrophils % 76.8 Lymphocytes % 6.9 L D Monocytes % 15.2 H D Eosinophils % 0.8 Basophils % 0.3 INR PTT (Actin FS) Sodium Potassium Chloride Carbon Dioxide Anion Gap BUN Creatinine Random Glucose Calcium Active Medications Generic Name Dose Route Start Last Admin Trade Name Freq PRN Reason Stop Dose Admin Acetaminophen 650 mg 07/14/17 12:36 Tylenol - PO Q6H PRN FEVER OR PAIN Albuterol Sulfate 1 amp 07/13/17 12:43 Ventolin 0.083% Nebulizer Soln - NEB Q6H PRN SHORT OF BREATH/WHEEZING Albuterol Sulfate 1 puff 07/13/17 12:43 Ventolin Hfa Inhaler - IH Q6H PRN SHORT OF BREATH/WHEEZING Amoxicillin/Clavulanate Potassium 1 tab 07/14/17 17:30 Augmentin - 250mg Tablet PO BID@0800,1730 SARAVANAN Atorvastatin Calcium 20 mg 07/13/17 22:00 07/13/17 21:09 Lipitor - PO 20 mg HS SARAVANAN Administration Carbidopa/Levodopa 1 combo 07/13/17 22:00 07/14/17 09:42 Sinemet *Cr* 25/100 - PO 1 combo BID SARAVANAN Administration Clopidogrel Bisulfate 75 mg 07/14/17 13:30 07/14/17 13:34 Plavix - PO 75 mg DAILY SARAVANAN Administration Docusate Sodium 100 mg 07/13/17 22:00 07/14/17 09:41 Colace - PO 100 mg BID SARAVANAN Administration Enoxaparin Sodium 40 mg 07/14/17 10:00 07/14/17 09:42 Lovenox - SQ 40 mg DAILY SARAVANAN Administration Finasteride 5 mg 07/14/17 10:00 07/14/17 09:42 Proscar - PO 5 mg DAILY SARAVANAN Administration Sodium Chloride 1,000 mls @ 100 mls/hr 07/14/17 03:26 07/14/17 03:43 Normal Saline - IV Not Given ASDIR SARAVANAN Levetiracetam 500 mg 07/13/17 22:00 07/14/17 09:47 Keppra - PO 500 mg BID SARAVANAN Administration Metoprolol Succinate 50 mg 07/14/17 22:00 Toprol Xl - PO HS SARAVANAN Oxycodone HCl 2.5 mg 07/14/17 11:32 Roxicodone - PO Q6H PRN PAIN Pantoprazole Sodium 40 mg 07/14/17 07:00 07/14/17 06:10 Protonix - PO 40 mg ACBK SARAVANAN Administration Tamsulosin HCl 0.4 mg 07/14/17 08:30 07/14/17 08:09 Flomax - PO 0.4 mg DAILY@0830 SARAVANAN Administration ASSESSMENT/PLAN: Pt is a 87yo M w/ an extensive PMHx including Seizure Disorder, Parkinsons, prior CVA in 2012, frequent falls who presented s/p fall, found to have L hip fracture, C1 and C2 fractures, and L rib fracture, s/p gamma nail hip repair post-op day #1. #Anemia -Hgb trending down: 11.8 on admission --> 8.3 post surgery --> 7.1 this afternoon -likely due to blood loss during surgery -INR of 1.3 and PTT of 30 -pt asymptomatic, will recheck CBC avinash and consider transfusion if still downtrending #[place] -creatinine of 1.6, BUN of 39 -likely prerenal and 2/2 blood loss during surgery -trend BMP #Thrombocytopenia -platelets downtrending from 265 --> 219 --> 135 -possibly due to blood loss during surgery -trend CBC #C1 and C2 fracture -CT C-spine- acute fracture of C1 and odontoid base and subluxation of atlantoaxial joint -MRI w/o contrast C-spine- no evidence of spinal cord compression -per neurosurgery, no intervention required. continue [place] J collar for 10 weeks as precaution. pt to get C-spine XR AP and lateral to f/u C1-C2 alignment in 2 weeks. # Left Hip Fracture - ortho on board -pt underwent gamma nail hip surgery on 07/13 - Pain control w/ oxycodone and tylenol PRN # L Rib Fracture - Pain control w/ oxycodone and tylenol PRN # B/L Mastoiditis - likely chronic, pt asymptomatic, mild leuko - ID on board. Per recs, likely chronic, received one dose of ceftriaxone, and switched to augmentin for 10 days # Hyponatremia - mild - IVNS @ 100cc/hr - Prior echo from 2016 shows EF 62.5%, normal systolic function - trend BMP # Elevated ALP - Pt has had chronically elevated ALP in past - No abdominal pain # Hx of Seizure Disorder - dilantin level of 27.3, so dilantin held. Will repeat level avinash am, and will likely restart dilantin 100 qd instead of BID -f/u keppra level, continue for now # Prior Hx of CVA - Plavix restarted post surgery # HTN -due to low BPs, Toprol XL decreased to 50mg qd # HLD - Continue Statin # Hx of BPH - Continue Flomax - Continue Finasteride # ? Hx of Asthma - Continue Albuterol Nebs - Continue Ventolin PRN # Hx of Parkinsons - Continue Sinemet # Hx of Constipation - Continue Colace # FEN - Fluids: IVNS @ 100cc/hr - Electrolytes: monitor K and calcium - Nutrition: sodium controlled diet # Prophylaxis - DVT: lovenox 40 - GI: Not indicated - Deconditioning: PT eval #Dispo -pending conversation with nephew (Sharath). Pt and aid want for pt to get home PT services and do not want [facility]. Rancho Leon MD- PGY1 Visit type - Emergency Visit Emergency Visit: Yes ED Registration Date: 07/13/17 Care time: The patient presented to the Emergency Department on the above date and was hospitalized for further evaluation of their emergent condition. - New Patient This patient is new to me today: No - Critical Care Critical Care patient: No
[2017-07-14] MEDS ORDERED: PT OWN MED DRAWER 7, Y5N ONE (17:52)
[2017-07-14] MEDS: AMOX TR/POT CLAV 250MG/125MG TABLETS PO SCH (18:02)
--- NOTE | 2017-07-14 18:23 | PN ---
Teaching Attending Note Name of Resident: Rancho Leon ATTENDING PHYSICIAN STATEMENT I saw and evaluated the patient. I reviewed the resident's note and discussed the case with the resident. I agree with the resident's findings and plan as documented. SUBJECTIVE: no fever or chills, discomfort with the collar . overnight hypotensive Bp meds held and given IVF OBJECTIVE: NAD , awake and cooperative . collar on . CV: RRR Lungs: CTAB Abd: soft, NT, ND , NL BS Ext : L lateral hip surgical dressing . DP 2+ b/l. Neuro ,no facial droop, EOMI, strength 5/5 in upper ext proximally and distally , LLE : can move ankle and toes. RLE proximal and distal strength 5/5 . . RLE with 5/5 prox and dist. nl sensation ASSESSMENT AND PLAN: 87 y/o man with h/o HTN, HLD, DVT, and IVC filter, BPH, CVA (13), Seizure DO, Parkinsons Dx, GI Bleed due to ulcers, Howard's Esophagus. He resented with L hip pain after a mechanical fall 1- L hip Fx : s/p Gamma nailing - cont DVT px with lovenox - pain control, switch to oxycodone and tylenol 2- B[place]ON: likely due to hypovolemia , can't r/o ATN. give IVF and monitor 3- hyperkalemia, from renal failure , repeat now 4- macrocytic anemia : chronci , but hb lower than base line of 9-10. likely due to surgical loss and dilution . - check iron studies , B12 , folate - non need for transfusion . - repeat in Am . tx if < 7 5- C1 Fx : with no neuro deficit - appreciate neuro sx input - Collar x 8 weeks . no surgical intervention 6- Possible chronic Mastoiditis , seen accidentally on CT. - Augmentin x 10 days 7- HTN, hypotensive over night . cont IVF and decrease BB dose with parameters 8-h/o seizure : dilantin level is elevated. hold and recheck in am , might resume at lower dose . dilantin toxicity might explain falls follow keppra HLOC. PT eval if labs are better in am , and BP has improved, can be dc . will be better served in Rehab, family to be reached as pt is reluctant.
[2017-07-14] MEDS: ATORVASTATIN CA 20 MG TABLET (FP) PO SCH (21:22)
[2017-07-14] MEDS: METOPROLOL SUCCINATE 50 MG TAB.SR.24H (FP) PO SCH (21:22)
[2017-07-15] MEDS: SODIUM CHLORIDE 1,000 ML IV SCH (01:00)
[2017-07-15] MEDS: PANTOPRAZOLE 40 MG TABLET (FP) PO SCH (06:13)
[2017-07-15] MEDS ORDERED: PT OWN MED DRAWER 7, Y5N ONE ×2 (08:13→17:37)
[2017-07-15] MEDS: AMOX TR/POT CLAV 250MG/125MG TABLETS PO SCH ×2 (08:17→17:37)
[2017-07-15] MEDS: TAMSULOSIN HCL 0.4 MG CAP.ER.24H (FP) PO SCH (08:17)
--- NOTE | 2017-07-15 08:33 | PN ---
Progress Note (short form) - Note Progress Note: NEUROSURGERY Doing OK Still complaining about eating with collar on even though he is fed by aides anyway PE: AF, VSS HEENT- NC/AT; Neck- hyperlordotic, no tenderness, in collar; Cor- RR; Lungs- CTA B; Abd- benign; Ext- no sign of DVT; L hip/thigh tender A/A/Ox2-3 CN- intact; Motor- 4+/5 except L LE 3/5 pain and fx limited; Sensation- intact LT; DTR- hyporeflexic; cerebellar- resting tremor R > L Fractures of C1 (Graham variant) likely chronic anteriorly and acute- subacute posterior L C1 laminar fx though edema mild [place] J collar x 10 weeks C spine x-rays ap-lat to f/u C1-2 alignment in 2 weeks
[2017-07-15 08:58] LABS: MCH 33.3 pg (25.7-33.7); MCHC 34.6 g/dl (32.0-35.9); MEAN CELL VOLUME 96.3 fl (80-96); MEAN PLT VOLUME 8.1 fl (7.5-11.1); PLATELET COUNT 128 K/MM3 (134-434); RDW 13.2 % (11.9-15.9); WHITE BLOOD COUNT 6.9 K/mm3 (4.0-10.0)
--- NOTE | 2017-07-15 09:56 | PN ---
Progress Note (short form) - Note Progress Note: Ortho Pt seen and examined s/p left IM gamma nail pod #2 Selected Entries 07/15/17 09:26 Temperature 98.9 F Pulse Rate 89 Respiratory 18 Rate Blood Pressure 140/69 Laboratory Tests 07/15/17 07:30 WBC 6.9 Hgb 6.9 L* Hct 20.0 L Plt Count 128 L dressing c/d/i, calf soft, nt nvi a/p Transfuse 2 units PRBCs f/u cbc PT dvt ppx pain control d/c planning
[2017-07-15 10:02] LABS: FERRITIN 140.232 ng/ml (16.4-293.9)
[2017-07-15] MEDS: levETIRAcetam 500 MG TABLET (FP) PO SCH ×2 (10:55→21:02)
[2017-07-15] MEDS: FINASTERIDE 5 MG TABLET (FP) PO SCH (10:55)
[2017-07-15] MEDS: ENOXAPARIN NA (PORCINE) 40 MG/0.4 ML DISP.SYRIN SQ SCH (10:55)
[2017-07-15] MEDS: DOCUSATE SODIUM 100 MG CAPSULE (FP) PO SCH ×2 (10:55→21:01)
[2017-07-15] MEDS: CLOPIDOGREL BISULFATE 75 MG TABLET (FP) PO SCH (10:55)
[2017-07-15] MEDS: PHENYTOIN NA EXTENDED 100 MG CAPSULE (FP) PO SCH (12:54)
[2017-07-15 18:39] LABS: MCH 32.5 pg (25.7-33.7); MCHC 34.6 g/dl (32.0-35.9); MEAN PLT VOLUME 8.4 fl (7.5-11.1); PLATELET COUNT 141 K/MM3 (134-434); RDW 14.1 % (11.9-15.9); WHITE BLOOD COUNT 6.9 K/mm3 (4.0-10.0)
[2017-07-15] MEDS ORDERED: SODIUM CHLORIDE 1,000 ML IV SCH (19:20)
--- NOTE | 2017-07-15 19:21 | PN ---
Teaching Attending Note Name of Resident: Rancho Leon ATTENDING PHYSICIAN STATEMENT I saw and evaluated the patient. I reviewed the resident's note and discussed the case with the resident. I agree with the resident's findings and plan as documented. SUBJECTIVE: no fever or chills . discomfort with the collar OBJECTIVE: NAD , awake and cooperative . collar on . CV: RRR Lungs: CTAB Abd: soft, NT, ND , NL BS . no bruising on flanks Ext : L lateral hip surgical dressing . DP 2+ b/l. minimal lateral bruising . ASSESSMENT AND PLAN: 87 y/o man with h/o HTN, HLD, DVT, and IVC filter, BPH, CVA (13), Seizure DO, Parkinsons Dx, GI Bleed due to ulcers, Howard's Esophagus. He resented with L hip pain after a mechanical fall 1- L hip Fx : s/p Gamma nailing - cont DVT px with lovenox despite anemia as high risk for thrombosis and no active bleeding - pain control, oxycodone and tylenol 2- [place]: likely due to hypovolemia , can't r/o ATN. cont IVF labs still pending 3- Worsening macrocytic anemia : - iron studies , B12 , folate pending - received 2 units of RBC with improvement in HB - no signs of retroperitonea bleed or bleeding in thigh 5- C1 Fx : with no neuro deficit - appreciate neuro sx input - Collar x 8 weeks . no surgical intervention repeat C spine xray in 2 weeks 6- Possible chronic Mastoiditis , seen accidentally on CT. - Augmentin x 10 days 7- HTN, hypotensive over night . decrease IVF to avoid fluid overload after 2 units of blood 8-h/o seizure : dilantin level is 15.7 today. will resume at 100 daily keppra level within range HLOC. possible dc tomorrow to rehab
--- NOTE | 2017-07-15 19:44 | PN ---
Physical Exam: SUBJECTIVE: Patient seen and examined. No acute events overnight. Pt has no complaints, states that his left hip pain is minimal. He denies SOB, chest pain, abdominal pain, nausea, emesis, diarrhea , constipation, or dysuria. OBJECTIVE: Vital Signs Period Temp Pulse Resp BP Sys/Baig Pulse Ox Last 24 Hr 98.7 F-98.9 F 82-89 18-20 101-140/45-69 97-99 GENERAL: The patient is awake, alert, and fully oriented, in mild distress, unable to finish sentences without stopping to breath. HEAD: Normal with no signs of trauma. EYES: extraocular movements intact, sclera anicteric, conjunctiva clear. No ptosis. ENT: Ears normal, nares patent, oropharynx clear without exudates, moist mucous membranes. NECK: Trachea midline, full range of motion, supple. LUNGS: Breath sounds equal, clear to auscultation bilaterally, no wheezes, no crackles, no accessory muscle use. HEART: Regular rate and rhythm, S1, S2 without murmur, rub or gallop. ABDOMEN: Soft, nontender, nondistended, normoactive bowel sounds, no guarding, no rebound, no hepatosplenomegaly, no masses. Hips: L hip is minimally tender to palpation. 2 adhesive bandages are on posterior hip. EXTREMITIES: 2+ pulses, warm, well-perfused, no edema. NEUROLOGICAL: Cranial nerves II through XII grossly intact. speech normal, gait not observed. PSYCH: Normal mood, normal affect. SKIN: Warm, dry, normal turgor, no rashes or lesions noted Laboratory Results - last 24 hr 07/13/17 07/13/17 07/13/17 08:00 08:00 08:00 WBC 6.6 D RBC 3.12 L Hgb 10.3 L D Hct 29.9 L MCV 95.6 MCH 32.8 MCHC 34.3 RDW 13.3 Plt Count 219 MPV 7.5 RBC Morphology INR 1.26 H Potassium Ferritin Vitamin B12 Serum Folate Phenytoin Blood Type A POSITIVE Antibody Screen Negative Crossmatch See Detail 07/14/17 07/15/17 07/15/17 19:50 07:30 07:30 WBC 6.9 RBC 2.07 L Hgb 6.9 L* Hct 20.0 L MCV 96.3 H MCH 33.3 MCHC 34.6 RDW 13.2 Plt Count 128 L MPV 8.1 RBC Morphology Appears normal INR Potassium 4.5 Ferritin Vitamin B12 Serum Folate Phenytoin 15.7 D Blood Type Antibody Screen Crossmatch 07/15/17 07/15/17 10:05 18:00 WBC 6.9 RBC 2.60 L D Hgb 8.5 L D Hct 24.5 L D MCV 94.0 MCH 32.5 MCHC 34.6 RDW 14.1 Plt Count 141 MPV 8.4 RBC Morphology INR Potassium Ferritin 140.232 Vitamin B12 241 D Serum Folate 4 Phenytoin Blood Type Antibody Screen Crossmatch Active Medications Generic Name Dose Route Start Last Admin Trade Name Freq PRN Reason Stop Dose Admin Acetaminophen 650 mg 07/14/17 12:36 Tylenol - PO Q6H PRN FEVER OR PAIN Albuterol Sulfate 1 amp 07/13/17 12:43 Ventolin 0.083% Nebulizer Soln - NEB Q6H PRN SHORT OF BREATH/WHEEZING Albuterol Sulfate 1 puff 07/13/17 12:43 Ventolin Hfa Inhaler - IH Q6H PRN SHORT OF BREATH/WHEEZING Amoxicillin/Clavulanate Potassium 1 tab 07/14/17 17:30 07/15/17 17:37 Augmentin - 250mg Tablet PO 1 tab BID@0800,1730 SARAVANAN Administration Atorvastatin Calcium 20 mg 07/13/17 22:00 07/14/17 21:22 Lipitor - PO 20 mg HS SARAVANAN Administration Carbidopa/Levodopa 1 combo 07/13/17 22:00 07/15/17 10:55 Sinemet *Cr* 25/100 - PO 1 combo BID SARAVANAN Administration Clopidogrel Bisulfate 75 mg 07/14/17 13:30 07/15/17 10:55 Plavix - PO 75 mg DAILY SARAVANAN Administration Docusate Sodium 100 mg 07/13/17 22:00 07/15/17 10:55 Colace - PO 100 mg BID SARAVANAN Administration Enoxaparin Sodium 40 mg 07/14/17 10:00 07/15/17 10:55 Lovenox - SQ 40 mg DAILY SARAVANAN Administration Finasteride 5 mg 07/14/17 10:00 07/15/17 10:55 Proscar - PO 5 mg DAILY SARAVANAN Administration Sodium Chloride 1,000 mls @ 50 mls/hr 07/15/17 19:20 Normal Saline - IV ASDIR SARAVANAN Levetiracetam 500 mg 07/13/17 22:00 07/15/17 10:55 Keppra - PO 500 mg BID SARAVANAN Administration Metoprolol Succinate 50 mg 07/14/17 22:00 07/14/17 21:22 Toprol Xl - PO 50 mg HS SARAVANAN Administration Oxycodone HCl 2.5 mg 07/14/17 11:32 Roxicodone - PO Q6H PRN PAIN Pantoprazole Sodium 40 mg 07/14/17 07:00 07/15/17 06:13 Protonix - PO 40 mg ACBK SARAVANAN Administration Phenytoin Sodium 100 mg 07/15/17 12:00 07/15/17 12:54 Dilantin - PO 100 mg DAILY SARAVANAN Administration Tamsulosin HCl 0.4 mg 07/14/17 08:30 07/15/17 08:17 Flomax - PO 0.4 mg DAILY@0830 SARAVANAN Administration ASSESSMENT/PLAN: Pt is a 87yo M w/ an extensive PMHx including Seizure Disorder, Parkinsons, prior CVA in 2012, frequent falls who presented s/p fall, found to have L hip fracture, C1 and C2 fractures, and L rib fracture, s/p gamma nail hip repair post-op day #2. #Anemia- likely due to blood loss during surgery -Hgb trending down: 11.8 on admission --> 8.3 post surgery --> 7.1 --> 6.9 this am -pt given 2 units of PRBCs, Hgb increased to 8.5 -continue trending -f/u iron studies and cbc #[place]- likely prerenal and 2/2 blood loss during surgery -creatinine of 1.6, BUN of 39 yesterday -trend BMP #Thrombocytopenia -platelets downtrending from 265 --> 219 --> 135 --> 128 -possibly due to blood loss during surgery -trend CBC #C1 and C2 fracture -CT C-spine- acute fracture of C1 and odontoid base and subluxation of atlantoaxial joint -MRI w/o contrast C-spine- no evidence of spinal cord compression -per neurosurgery, no intervention required. continue [place] J collar for 10 weeks as precaution. pt to get C-spine XR AP and lateral to f/u C1-C2 alignment in 2 weeks. # Left Hip Fracture - ortho on board -pt underwent gamma nail hip surgery on 07/13 - Pain control w/ oxycodone and tylenol PRN # L Rib Fracture - Pain control w/ oxycodone and tylenol PRN # B/L Mastoiditis - likely chronic, pt asymptomatic, mild leuko - ID on board. Per recs, likely chronic, received one dose of ceftriaxone, and switched to augmentin for 10 days # Hyponatremia - mild - resolved, continue to trend Na # Elevated ALP - Pt has had chronically elevated ALP in past - No abdominal pain # Hx of Seizure Disorder -dilantin 100 qd changed from BID due to elevated dilantin level -f/u keppra level, continue for now # Prior Hx of CVA - continue Plavix # HTN -continue Toprol XL 50mg qd # HLD - Continue Statin # Hx of BPH - Continue Flomax - Continue Finasteride # ? Hx of Asthma - Continue Albuterol Nebs - Continue Ventolin PRN # Hx of Parkinsons - Continue Sinemet # Hx of Constipation - Continue Colace # FEN - Fluids: IVNS @ 100cc/hr - Electrolytes: monitor K and calcium - Nutrition: sodium controlled diet # Prophylaxis - DVT: lovenox 40 - GI: Not indicated - Deconditioning: PT eval #Dispo -contacted nephew Sharath today. He does not want pt to go to [facility], states that he wants his uncle to come home, would like whatever services are available, and believes that pt is better off at home. -Pt requires lightweight wheelchair to complete ADLs in home as he is unable to self propel in standard wheelchair. -pt likely able to be discharged avinash Leon MD- PGY1 Visit type - Emergency Visit Emergency Visit: Yes ED Registration Date: 07/13/17 Care time: The patient presented to the Emergency Department on the above date and was hospitalized for further evaluation of their emergent condition. - New Patient This patient is new to me today: No - Critical Care Critical Care patient: No
[2017-07-15 19:46] LABS: ANION GAP 13 (8-16); CALCIUM 7.6 mg/dL (8.5-10.1); CO2 18 mmol/L (21-32); CREATININE 1.2 mg/dL (0.7-1.3); GLUCOSE,RANDOM 113 mg/dL (74-106); MAGNESIUM 2.1 mg/dL (1.8-2.4); PHOSPHOROUS 2.7 mg/dL (2.5-4.9)
[2017-07-15] MEDS: METOPROLOL SUCCINATE 50 MG TAB.SR.24H (FP) PO SCH (21:02)
[2017-07-15] MEDS: ATORVASTATIN CA 20 MG TABLET (FP) PO SCH (21:03)
[2017-07-16 06:08] LABS: SERUM IRON 7 ug/dL (38-169); TOTAL IRON BINDING CAPACITY 160 ug/dL (250-450); UIBC 153 ug/dL (111-343)
[2017-07-16] MEDS: PANTOPRAZOLE 40 MG TABLET (FP) PO SCH (06:25)
[2017-07-16] MEDS: TAMSULOSIN HCL 0.4 MG CAP.ER.24H (FP) PO SCH (08:28)
[2017-07-16] MEDS: AMOX TR/POT CLAV 250MG/125MG TABLETS PO SCH (08:36)
[2017-07-16 08:47] VITALS: BP 124/62
[2017-07-16 08:55] LABS: BASOPHIL 0.3 % (0-2.0); EOSINOPHIL 1.1 % (0-4.5); MCH 32.6 pg (25.7-33.7); MCHC 35.2 g/dl (32.0-35.9); MEAN CELL VOLUME 92.6 fl (80-96); MEAN PLT VOLUME 8.1 fl (7.5-11.1); NEUTROPHILS 80.6 % (42.8-82.8); PLATELET COUNT 151 K/MM3 (134-434); RDW 14.4 % (11.9-15.9); WHITE BLOOD COUNT 7.9 K/mm3 (4.0-10.0)
[2017-07-16] MEDS: ENOXAPARIN NA (PORCINE) 40 MG/0.4 ML DISP.SYRIN SQ SCH (09:18)
[2017-07-16 09:19] LABS: ANION GAP 11 (8-16); CALCIUM 7.8 mg/dL (8.5-10.1); CO2 21 mmol/L (21-32); CREATININE 1.2 mg/dL (0.7-1.3); GLUCOSE,RANDOM 169 mg/dL (74-106)
[2017-07-16] MEDS: PHENYTOIN NA EXTENDED 100 MG CAPSULE (FP) PO SCH (09:23)
[2017-07-16] MEDS: FINASTERIDE 5 MG TABLET (FP) PO SCH (09:23)
[2017-07-16] MEDS: DOCUSATE SODIUM 100 MG CAPSULE (FP) PO SCH (09:23)
[2017-07-16] MEDS: CLOPIDOGREL BISULFATE 75 MG TABLET (FP) PO SCH (09:23)
[2017-07-16] MEDS: levETIRAcetam 500 MG TABLET (FP) PO SCH (09:24)
[2017-07-16] MEDS ORDERED: CYANOCOBALAMIN (VITAMIN B-12) 1000 MCG/1 ML VIAL IM SCH (10:00)
[2017-07-16] MEDS ORDERED: FOLIC ACID 1 MG TABLET (FP) PO SCH (10:00)
--- NOTE | 2017-07-16 10:08 | PN ---
Progress Note (short form) - Note Progress Note: NEUROSURGERY Doing OK Minimal L hip pain Collar padding fell off and were repositioned PE: Tmax 98.4, AF, VSS HEENT- NC/AT; Neck- hyperlordotic, no tenderness, in collar; Cor- RR; Lungs- CTA B; Abd- benign; Ext- no obvious sign of DVT A/A/Ox2-3 CN- intact; Motor- 4+/5 except L LE 3/5 fx limited; Sensation- intact LT; DTR- hyporeflexic; cerebellar- resting tremor R > L hands Fractures of C1 [place] J collar x 10 weeks total C spine x-rays to f/u C1-2 alignment in 2 weeks No acute neurosurgical intervention indicated nor recommended DVT prophylaxis Spent 25 minutes at bedside All questions answered
--- NOTE | 2017-07-16 12:06 | PN ---
Teaching Attending Note Name of Resident: Joselito Morataya ATTENDING PHYSICIAN STATEMENT I saw and evaluated the patient. I reviewed the resident's note and discussed the case with the resident. I agree with the resident's findings and plan as documented. SUBJECTIVE: no fever ro chills. denies any SOB OBJECTIVE: NAD , awake and cooperative . collar on . CV: RRR Lungs: CTAB Abd: soft, NT, ND , NL BS . no bruising on flanks Ext : L lateral hip surgical dressing . DP 2+ b/l. ASSESSMENT AND PLAN: 87 y/o man with h/o HTN, HLD, DVT, and IVC filter, BPH, CVA (13), Seizure DO, Parkinsons Dx, GI Bleed due to ulcers, Howard's Esophagus. He resented with L hip pain after a mechanical fall 1- L hip Fx : s/p Gamma nailing - cont DVT px with lovenox despite anemia as high risk for thrombosis and no active bleeding. cont x 4 weeks after sx , unless evidence of bleeding - pain control, low dose oxycodone and tylenol 2- BENTON: likely due to hypovolemia , cr at base line . dc IVF 3- Worsening macrocytic anemia : due to surgical loss and IVF . s/p 2 units of RBC . stable HB - iron studies with no evidence of iron def. , B12low nl , folate nl - start treatment with IM B12 due to macrocytosis ( unfortunately , MMA not available ) . 1000mcgdaily x 7 days , then weekly x 4 weeks then monthly after that 5- C1 Fx : with no neuro deficit - Collar x 8 weeks . no surgical intervention repeat C spine xray in 2 weeks 6- Possible chronic Mastoiditis , seen accidentally on CT. - Augmentin x total of 10 days 7- HTN, with transient hypotension due to hypovolemia . cont decreased dose of metoprolol 8-H/o seizure : cont decreased dose of dilantin 100 daily keppra level within range . cont current dose dc to rehab today if bed is available
--- NOTE | 2017-07-16 13:48 | DS ---
Physical Exam: SUBJECTIVE: Patient seen and examined no complaints wants to go home OBJECTIVE: Vital Signs Period Temp Pulse Resp BP Sys/Baig Pulse Ox Last 24 Hr 98.1 F-98.8 F 83-95 18-20 101-132/45-66 98 PHYSICAL EXAM GENERAL: alert and awake HEAD: Normal with no signs of trauma. EYES: extraocular movements intact, sclera anicteric, conjunctiva clear. No ptosis. ENT: Ears normal, nares patent, oropharynx clear without exudates, moist mucous membranes. NECK: Trachea midline, full range of motion, supple. LUNGS: Breath sounds equal, clear to auscultation bilaterally, no wheezes, no crackles, no accessory muscle use. HEART: Regular rate and rhythm, S1, S2 without murmur, rub or gallop. ABDOMEN: Soft, nontender, nondistended, normoactive bowel sounds, no guarding, no rebound, no hepatosplenomegaly, no masses. Hips: L hip is minimally tender to palpation. 2 adhesive bandages are on posterior hip. EXTREMITIES: 2+ pulses, warm, well-perfused, no edema. NEUROLOGICAL: Cranial nerves II through XII grossly intact. speech normal, gait not observed. PSYCH: Normal mood, normal affect. SKIN: Warm, dry, normal turgor, no rashes or lesions noted LABS Laboratory Results - last 24 hr 07/13/17 07/15/17 07/15/17 08:00 10:05 14:51 WBC RBC Hgb Hct MCV MCH MCHC RDW Plt Count MPV Neutrophils % Lymphocytes % Monocytes % Eosinophils % Basophils % Sodium 140 Potassium 4.4 Chloride 109 H Carbon Dioxide 18 L D Anion Gap 13 BUN 32 H Creatinine 1.2 D Random Glucose 113 H Calcium 7.6 L Phosphorus 2.7 D Magnesium 2.1 Iron 7 L TIBC 160 L Iron Saturation 4 L Transferrin Ferritin 140.232 Vitamin B12 241 D Serum Folate 4 Blood Type A POSITIVE Antibody Screen Negative Crossmatch See Detail 07/15/17 07/15/17 07/16/17 14:51 18:00 07:35 WBC 6.9 7.9 RBC 2.60 L D 2.85 L Hgb 8.5 L D 9.3 L Hct 24.5 L D 26.4 L MCV 94.0 92.6 MCH 32.5 32.6 MCHC 34.6 35.2 RDW 14.1 14.4 Plt Count 141 151 MPV 8.4 8.1 Neutrophils % 80.6 Lymphocytes % 5.9 L Monocytes % 12.1 H Eosinophils % 1.1 Basophils % 0.3 Sodium Potassium Chloride Carbon Dioxide Anion Gap BUN Creatinine Random Glucose Calcium Phosphorus Magnesium Iron TIBC Iron Saturation Transferrin 123 L Ferritin Vitamin B12 Serum Folate Blood Type Antibody Screen Crossmatch 07/16/17 07:35 WBC RBC Hgb Hct MCV MCH MCHC RDW Plt Count MPV Neutrophils % Lymphocytes % Monocytes % Eosinophils % Basophils % Sodium 139 Potassium 4.1 Chloride 107 Carbon Dioxide 21 Anion Gap 11 BUN 27 H Creatinine 1.2 Random Glucose 169 H D Phosphorus Magnesium Iron TIBC Iron Saturation Transferrin Ferritin Vitamin B12 Serum Folate Blood Type Antibody Screen Crossmatch HOSPITAL COURSE: Date of Admission:07/13/17 Date of Discharge: 07/16/17 87M with multiple medical problems admitted s/p fall found to have hip fracture ad C spine fracture. patient placed in C collar and s/p gamma nailing. patient had CT scan which showed mastoiditis and was started on ABx. hospital cvourse complicated by acute bloos loss anemia. Source of bleeding never ientified but recieved 2 units PRBCs and had a appropriate response. Dilaitn level increased. and dilatin dose reduced. Patients BP meds were also adjusted as metoprolol was reduced. patient kad BENTON likely from hypovolemia which is now at baseline. Found to have Vitamin B12 deficiecy and was started on Vit B12 and folic acid. was restarted on other home meds. Iron studies did not reveal iron deficiency aneia Minutes to complete discharge: 35 Discharge Summary Reason For Visit: HIP FRACTURE MASTOIDITIS Current Active Problems Acetabular fracture (Acute) Anemia (Acute) Closed fracture of single pubic ramus of pelvis (Acute) Contusion of rib on right side (Acute) DVT prophylaxis (Acute) Dehydration (Acute) Ecchymosis (Acute) Elevated lactic acid level (Acute) Fever (Acute) Fever and chills (Acute) Hip fracture (Acute) Pelvic fracture (Acute) Pubic ramus fracture (Acute) BPH (benign prostatic hyperplasia) (Chronic) Blindness (Chronic) GERD with apnea (Chronic) Hyperlipidemia (Chronic) Hypertension (Chronic) Mastoiditis (Chronic) Parkinsons disease (Chronic) Condition: Improved - Instructions Diet, Activity, Other Instructions: you will need an Xray for your Cervical spine in 2 weeks to f/u C1-2 alignment in 2 weeks we decreased the dose of meotprolol to 50mg instead of 100mg do not take 100mg anymore we decreased your dilantin dose to 100mg once a day you will need blood work in 1 week to make sure your counts are not too low your B12 level was low as was your folic acid level we will presribe it for you take the B12 injections 1000mcg once a day for 6 more days then once a week for 4 weeks then once a month you will need to wear the collar for 8 more weeks f/u you can bear weight partially on the leg that was repaired as tolerated you will need physical therapy if you have fevers chills dizziness or bruising call your doctor and go to the nearest emergency room your doctor can give you a prescription for a hospital bed please take antibiotics until they are complete Good luck it was a pleasure caring for you Referrals: Obdulio Watkins MD [Staff Physician] - 2 Weeks Obdulio Archuleta MD, MD [Primary Care Provider] - 1 Week Torsten Soto MD [Staff Physician] - 2 Weeks Disposition: VNS/HOME HEALTH CARE - Home Medications Comprehensive Discharge Medication List: Ambulatory Orders Levetiracetam [Keppra -] 500 mg PO BID 02/18/14 Simvastatin [Zocor -] 40 mg PO HS 02/18/14 Tamsulosin HCl [Flomax -] 0.4 mg PO DAILY 02/18/14 Omeprazole 40 mg PO ACBK 03/12/14 Clopidogrel Bisulfate [Clopidogrel] 75 mg PO DAILY 05/07/14 Ergocalciferol (Vitamin D2) [Drisdol] 10,000 units PO WEEKLY 07/11/16 Finasteride [Proscar -] 5 mg PO DAILY 07/11/16 Carbidopa/Levodopa *Cr* 25/100 [Sinemet *Cr* 25/100 -] 1 combo PO BID 07/12/16 Docusate Sodium [Colace -] 100 mg PO BID #60 capsule 07/14/16 Polyethylene Glycol 3350 [Miralax 119 gm Btl -] 17 gm PO DAILY #1 bottle Acetaminophen [Tylenol .Regular Strength -] 650 mg PO Q4H PRN #0 tablet Albuterol 0.083% Nebulizer Aida [Ventolin 0.083% Nebulizer Soln -] 1 amp NEB Q6H PRN #30 amp 09/14/16 Albuterol Sulfate Inhaler - [Ventolin HFA Inhaler -] 1 puff IH Q6H PRN #1 inhaler 09/14/16 Miscellaneous Medical Supply [Outpatient Order] 1 each ASDIR #1 misc Miscellaneous Medical Supply [Outpatient Order] 1 each ASDIR #1 misc Amox-Tr/K Cl [Augmentin 250-125mg Tablet -] 1 tab PO BID@0800,1730 #14 tablet Cyanocobalamin Vit B-12 Inj. [Vitamin B12 Injection -] 1,000 mcg IM DAILY #1 vial 07/16/17 Folic Acid - 1 mg PO DAILY #30 tablet 07/16/17 Metoprolol Succinate [Toprol XL -] 50 mg PO HS #30 tab 07/16/17 Miscellaneous Drug Not In Syst [Outpatient Lab Test] 1 each ASDIR #1 [facility] [place]24 Miscellaneous Medical Supply [Outpatient Order] 1 each ASDIR #1 [facility] [place] Phenytoin Na Extended [Dilantin -] 100 mg PO DAILY #30 cap 07/16/17 This patient is new to me today: Yes Date on this admission: 07/16/17 Emergency Visit: Yes ED Registration Date: 07/13/17 Care time: The patient presented to the Emergency Department on the above date and was hospitalized for further evaluation of their emergent condition. Critical Care patient: No - Discharge Referral Referred to [facility] Med P.C.: No
[2017-07-16 14:52] VITALS: PULSE 90; TEMP 98
== END 2017-07-16 15:53 | disposition home health service (06) | DRG 481 ==
LOC: JER 21:14 → JERBED 07-13 01:40 → J6S 07-13 03:16
PROVIDERS: ADMIT Internal Medicine; ATTEND Internal Medicine
PROC: 0QS704Z Reposition Left Upper Femur with Internal Fixation Device, Open Approach (ICD-10-PCS; principal; 2017-07-13 11:00)
PROC: 30233H1 Transfusion of Nonautologous Whole Blood into Peripheral Vein, Percutaneous Approach (ICD-10-PCS; 2017-07-15)
DX: S72.145A Nondisplaced intertrochanteric fracture of left femur, initial encounter for closed fracture (principal); S12.101A Unspecified nondisplaced fracture of second cervical vertebra, initial encounter for closed fracture; N17.9 Acute kidney failure, unspecified; S22.32XA Fracture of one rib, left side, initial encounter for closed fracture; G40.89 Other seizures; E87.1 Hypo-osmolality and hyponatremia; H70.13 Chronic mastoiditis, bilateral; W01.0XXA Fall on same level from slipping, tripping and stumbling without subsequent striking against object, initial encounter; Y93.89 Activity, other specified; Y92.013 Bedroom of single-family (private) house as the place of occurrence of the external cause; Y99.8 Other external cause status; I10 Essential (primary) hypertension; E78.00 Pure hypercholesterolemia, unspecified; Z86.718 Personal history of other venous thrombosis and embolism; Z79.01 Long term (current) use of anticoagulants; Z86.73 Personal history of transient ischemic attack (TIA), and cerebral infarction without residual deficits; G20 Parkinson's disease; N40.0 Benign prostatic hyperplasia without lower urinary tract symptoms; H54.0 Blindness, both eyes; J45.909 Unspecified asthma, uncomplicated; K59.00 Constipation, unspecified; E86.1 Hypovolemia; D53.9 Nutritional anemia, unspecified; Z91.81 History of falling
CPT/HCPCS: 36415; 36430; 70450-TC; 71101-TC; 72125-TC; 72141-TC; 73523-TC; 76000-TC; 80048; 80053; 80185; 81003; 82607; 82728; 82746; 83540; 83550; 83605; 83735; 84100; 84132; 84466; 84484; 85025; 85027; 85610; 85730; 86850; 86900; 86901; 86922; 93005; 93010; 94010; 94760; 97116-GP; 97162-GP; 99281-25; J1644; P9038; P9058

== ENCOUNTER 2017-07-21 12:55 | Inpatient (IN) | payer OTHER ==
[2017-07-21] MEDS ORDERED: ALBUTEROL SO4 2.5/IPRATROPIUM 0.5 INH SOL 3 ML VIAL.NEB. NEB ONE (13:00)
--- NOTE | 2017-07-21 13:03 | PDOC ---
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 The patient was reportedly found by ems on the floor acutely short of breath and unable to speak. As per EMS, the patient showed improvement to speaking 1-2 word sentences after being placed upright and on nebulizer treatments. The patient remains tachypneic and unable to give history at this time. Allergies: NKDA Social history: Pt denies toxic habits PCP - Dr. Obdulio Archuleta <Leticia Martinez - Last Filed: 07/21/17 15:08> <Natty Holman - Last Filed: 07/21/17 15:50> - General Stated Complaint: SOB Time Seen by Provider: 07/21/17 13:03 Past History <Leticia Martinez - Last Filed: 07/21/17 15:08> - Past Medical History Anemia: No Asthma: No Cancer: No Cardiac Disorders: No CVA: Yes COPD: No CHF: No Dementia: No Diabetes: No GI Disorders: (GI bleed) Disorders: Yes (BPH) HTN: Yes Hypercholesterolemia: Yes Liver Disease: No Psychiatric Problems: Yes (anxiety) Seizures: Yes Thyroid Disease: No - Surgical History Abdominal Surgery: No Appendectomy: No Cardiac Surgery: No Cholecystectomy: No Lung Surgery: No Neurologic Surgery: No Orthopedic Surgery: No - Immunization History Td Vaccination: Yes TDAP Vaccination: Yes Immunization Up to Date: Yes - Psycho/Social/Smoking Cessation Hx Anxiety: No Suicidal Ideation: No Smoking Status: No Smoking History: Never smoked Have you smoked in the past 12 months: No Number of Cigarettes Smoked Daily: 0 'Breaking Loose' booklet given: 05/22/12 Hx Alcohol Use: No Drug/Substance Use Hx: No Substance Use Type: None Hx Substance Use Treatment: No <Natty Holman - Last Filed: 07/21/17 15:50> - Past Medical History Allergies/Adverse Reactions: Allergies Allergy/AdvReac Type Severity Reaction Status Date / Time No Known Allergies Allergy Verified 07/12/17 22:32 Home Medications: Ambulatory Orders Levetiracetam [Keppra -] 500 mg PO BID 02/18/14 Simvastatin [Zocor -] 40 mg PO HS 02/18/14 Tamsulosin HCl [Flomax -] 0.4 mg PO DAILY 02/18/14 Omeprazole 40 mg PO ACBK 03/12/14 Clopidogrel Bisulfate [Clopidogrel] 75 mg PO DAILY 05/07/14 Ergocalciferol (Vitamin D2) [Drisdol] 10,000 units PO WEEKLY 07/11/16 Finasteride [Proscar -] 5 mg PO DAILY 07/11/16 Carbidopa/Levodopa *Cr* 25/100 [Sinemet *Cr* 25/100 -] 1 combo PO BID 07/12/16 Docusate Sodium [Colace -] 100 mg PO BID #60 capsule 07/14/16 Polyethylene Glycol 3350 [Miralax 119 gm Btl -] 17 gm PO DAILY #1 bottle Acetaminophen [Tylenol .Regular Strength -] 650 mg PO Q4H PRN #0 tablet Albuterol 0.083% Nebulizer Aida [Ventolin 0.083% Nebulizer Soln -] 1 amp NEB Q6H PRN #30 amp 09/14/16 Albuterol Sulfate Inhaler - [Ventolin HFA Inhaler -] 1 puff IH Q6H PRN #1 inhaler 09/14/16 Miscellaneous Medical Supply [Outpatient Order] 1 each ASDIR #1 mis Miscellaneous Medical Supply [Outpatient Order] 1 each ASDIR #1 misc Amox-Tr/K Cl [Augmentin 250-125mg Tablet -] 1 tab PO BID@0800,1730 #14 tablet Cyanocobalamin Vit B-12 Inj. [Vitamin B12 Injection -] 1,000 mcg IM DAILY #1 vial 07/16/17 Folic Acid - 1 mg PO DAILY #30 tablet 07/16/17 Metoprolol Succinate [Toprol XL -] 50 mg PO HS #30 tab 07/16/17 Miscellaneous Drug Not In Syst [Outpatient Lab Test] 1 each ASDIR #1 misc 07/24 Miscellaneous Medical Supply [Outpatient Order] 1 each ASDIR #1 [facility] [place] Phenytoin Na Extended [Dilantin -] 100 mg PO DAILY #30 cap 07/16/17 Review of Systems - Review of Systems Able to Perform ROS?: No (unable to obtain) <Leticia Martinez - Last Filed: 07/21/17 15:08> *Physical Exam - Physical Exam Comments: 07/21/17 13:21 ADULT EXAM GENERAL: (+) sleeping but easily arousable, alert, and fully oriented, in no acute distress HEAD: No signs of trauma EYES: PERRLA, EOMI, sclera anicteric, conjunctiva clear ENT: Auricles normal inspection, hearing grossly normal, nares patent, oropharynx clear without exudates. Moist mucosa NECK: (+) [place] collar in place. Normal ROM, supple, no lymphadenopathy, JVD, or masses LUNGS: (+) tachypneic, speaking in 1-2 word sentences, accessory muscle use, diffuse wheezing, Breath sounds equal. no crackles HEART: (+) tachycardic, with regular rhythm. No murmurs, normal S1 and S2, no murmurs, rubs or gallops ABDOMEN: Soft, nontender, normoactive bowel sounds. No guarding, no rebound. No masses EXTREMITIES: Normal range of motion, no edema. No clubbing or cyanosis. No cords, erythema, or tenderness NEUROLOGICAL: Cranial nerves II through XII grossly intact. Normal speech, normal gait SKIN: Warm, Dry, normal turgor, no rashes or lesions noted. 07/21/17 15:08 RECTAL EXAM: (+) slightly weak rectal tone. Sensation intact. <Leticia Martinez - Last Filed: 07/21/17 15:08> ED Treatment Course - LABORATORY CBC & Chemistry Diagram: 07/21/17 13:35 07/21/17 13:35 <Leticia Martinez - Last Filed: 07/21/17 15:08> - LABORATORY CBC & Chemistry Diagram: 07/21/17 13:35 07/21/17 13:35 <Natty Holman - Last Filed: 07/21/17 15:50> Medical Decision Making - Medical Decision Making 07/21/17 14:15 Upon physical exam the patient had a bowel movement and denies knowledge of doing so. He also reports slight decrease in sensation to his right lower extremity. 07/21/17 15:02 Dr. Obdulio Watkins was paged overhead and at the office requesting a call back for doctor to doctor. 07/21/17 15:08 Dr. Watkins returned the call and the patient's case was discussed. <Leticia Martinez - Last Filed: 07/21/17 15:08> - Medical Decision Making 07/21/17 15:43 pt presents to the ED complaining of shortness of breath. Extensive history as noted above. Febrile and hypoxic on arrival to the ED, speaking in one word sentences, improving with nebs. Differential includes PNA, PE, less likely PTX. Labs show elevated lactate. CXR unchanged. Blood cx drawn and started on broad spectrum abx. Will check CT chest to rule out PE. PAtient also has new onset fecal incontinence, as per aide. Intact great toe extension and rectal sensation, but low rectal tone. REst of neuro exam appears to be unchanged from previous. Will readmit to medicine. Will check LS spine CT to rule out cervical spine fx. <Natty Holman - Last Filed: 07/21/17 15:50> *DC/Admit/Observation/Transfer - Attestations Scribe Attestion: 07/21/17 13:23 Documentation prepared by Leticia Martinez, acting as medical research tech for Natty Holman MD, <Leticia Martinez - Last Filed: 07/21/17 15:08> - Discharge Dispostion Admit: Yes Decision to Admit order Date/Time: 07/21/17 15:50 <Natty Holman - Last Filed: 07/21/17 15:50> Diagnosis at time of Disposition: Hypoxia Pneumonia Qualifiers: Pneumonia type: due to unspecified organism Laterality: unspecified laterality Lung location: unspecified part of lung Qualified Code(s): J18.9 - Pneumonia, unspecified organism - Discharge Dispostion Condition at time of disposition: Fair - Referrals Referrals: Obdulio Archuleta MD, MD [Primary Care Provider] -
[2017-07-21] MEDS ORDERED: methylPREDNISolone NA SUCC 125 MG/2 ML VIAL IVPB ONE (13:13)
[2017-07-21] MEDS ORDERED: methylPREDNISolone NA SUCC 125 MG/2 ML VIAL ONE (13:27)
[2017-07-21 13:44] LABS: BASOPHIL 0.6 % (0-2.0); EOSINOPHIL 2.1 % (0-4.5); MCH 32.2 pg (25.7-33.7); MCHC 33.6 g/dl (32.0-35.9); MEAN PLT VOLUME 7.7 fl (7.5-11.1); NEUTROPHILS 78.7 % (42.8-82.8); PLATELET COUNT 337 K/MM3 (134-434); RDW 14.2 % (11.9-15.9)
[2017-07-21 14:02] LABS: ALBUMIN 2.4 g/dl (3.4-5.0); ANION GAP 13 (8-16); BILIRUBIN,TOTAL 0.7 mg/dL (0.2-1.0); CALCIUM 7.9 mg/dL (8.5-10.1); CO2 23 mmol/L (21-32); CREATININE 1.1 mg/dL (0.7-1.3); GLUCOSE,RANDOM 124 mg/dL (74-106); SGOT/AST 29 U/L (15-37); SGPT/ALT 27 U/L (12-78); TOT PROT 5.8 g/dl (6.4-8.2)
[2017-07-21 14:05] LABS: ALK PHOS 134 U/L (45-117); CPK 150 IU/L (39-308); TROPONIN I < 0.02 ng/ml (0.00-0.05)
[2017-07-21] MEDS ORDERED: VANCOMYCIN 1,000 MG in DEXTROSE 5%-WATER - 250 ML IVPB ONE (14:49)
[2017-07-21] MEDS ORDERED: PIPERACILLIN/TAZOB 3.375 GM 3.375 GM in DEXTROSE 5%-WATER - 50 ML IVPB ONE (14:49)
[2017-07-21] MEDS ORDERED: SODIUM CHLORIDE 0.9% 1000 ML INFUS.BAG IV ONE (14:50)
[2017-07-21] MEDS ORDERED: PIPERACILLIN/TAZOB 3.375 GM 50 ML IVPB ONE (15:01)
[2017-07-21] MEDS ORDERED: VANCOMYCIN 1 GRAM (PRE-DOCKED) 250 ML IVPB ONE (15:01)
--- NOTE | 2017-07-21 15:17 | EKG ---
Test Reason : Blood Pressure : / mmHG Vent. Rate : 086 BPM Atrial Rate : 086 BPM P-R Int : 172 ms QRS Dur : 110 ms QT Int : 398 ms P-R-T Axes : 026 -65 -07 degrees QTc Int : 476 ms SINUS RHYTHM WITH PREMATURE ATRIAL COMPLEXES WITH ABERRANT CONDUCTION LOW VOLTAGE QRS INCOMPLETE RIGHT BUNDLE BRANCH BLOCK LEFT ANTERIOR FASCICULAR BLOCK ABNORMAL ECG WHEN COMPARED WITH ECG OF 13-JUL-2017 11:27, ABERRANT CONDUCTION IS NOW PRESENT CRITERIA FOR SEPTAL INFARCT ARE NO LONGER PRESENT INVERTED T WAVES HAVE REPLACED NONSPECIFIC T WAVE ABNORMALITY IN INFERIOR LEADS NONSPECIFIC T WAVE ABNORMALITY NOW EVIDENT IN ANTERIOR LEADS Confirmed by ELDER SANDERSON, JOSE EDUARDO ([id number]) on 07/21/2017 3:16:42 PM Referred By: Confirmed By:JOSE EDUARDO FRIEDMAN MD
[2017-07-21] MEDS ORDERED: SODIUM CHLORIDE 500 ML IV STA (16:32)
--- NOTE | 2017-07-21 17:37 | HP ---
CHIEF COMPLAINT: SOB HISTORY OF PRESENT ILLNESS: Pt is a 87yo M w/ hx of seizure Disorder, Parkinsons, prior CVA in 2012, and recent hospitalization for hip surgery s/p fall (07/13/2017) who presents after his aid noticed that he was wheezing. Pt reports that he has had mild SOB that has been worsening the past few days, and he endorses a non-productive cough. He denies chest pain, lightheadedness, nausea, emesis, diarrhea, constipation, dysuria, and leg pain. His aid states that he has been behaving normally the last week, has had a normal appetite, and has had no complaints. However, he had one episode of emesis yesterday after eating. 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, HTN, HLD, DVT, s/p IVC filter , BPH, GI Bleed 2/2 ulcers, Baretts Esophagus, PAST SURGICAL HISTORY: R hip corrective surgery, L hip corrective surgery Social History: Smoking: denies Alcohol: denies Drugs: denies Family History: Allergies No Known Allergies Allergy (Verified 07/12/17 22:32) HOME MEDICATIONS: Home Medications Medication Instructions Recorded Levetiracetam [Keppra -] 500 mg PO BID 02/18/14 Simvastatin [Zocor -] 40 mg PO HS 02/18/14 Tamsulosin HCl [Flomax -] 0.4 mg PO DAILY 02/18/14 Omeprazole 40 mg PO ACBK 03/12/14 Clopidogrel Bisulfate [Clopidogrel] 75 mg PO DAILY 05/07/14 Ergocalciferol (Vitamin D2) 10,000 units PO WEEKLY 07/11/16 [Drisdol] Finasteride [Proscar -] 5 mg PO DAILY 07/11/16 Carbidopa/Levodopa *Cr* 25/100 1 combo PO BID 07/12/16 [Sinemet *Cr* 25/100 -] Docusate Sodium [Colace -] 100 mg PO BID #60 capsule 07/14/16 Polyethylene Glycol 3350 [Miralax 17 gm PO DAILY #1 bottle 07/14/16 119 gm Btl -] Acetaminophen [Tylenol .Regular 650 mg PO Q4H PRN #0 tablet 09/06/16 Strength -] Albuterol 0.083% Nebulizer Aida 1 amp NEB Q6H PRN #30 amp 09/14/16 [Ventolin 0.083% Nebulizer Soln -] Albuterol Sulfate Inhaler - 1 puff IH Q6H PRN #1 inhaler 09/14/16 [Ventolin HFA Inhaler -] Miscellaneous Medical Supply 1 each ASDIR #1 [facility] [place] 07/15/17 [Outpatient Order] Miscellaneous Medical Supply 1 each ASDIR #1 [facility] [place] 07/15/17 [Outpatient Order] Amox-Tr/K Cl [Augmentin 250-125mg 1 tab PO BID@0800,1730 #14 tablet 07/16/17 Tablet -] Cyanocobalamin Vit B-12 Inj. 1,000 mcg IM DAILY #1 vial 07/16/17 [Vitamin B12 Injection -] Folic Acid - 1 mg PO DAILY #30 tablet 07/16/17 Metoprolol Succinate [Toprol XL -] 50 mg PO HS #30 tab 07/16/17 Miscellaneous Drug Not In Syst 1 each ASDIR #1 [facility] [place] 07/16/17 [Outpatient Lab Test] Miscellaneous Medical Supply 1 each ASDIR #1 [facility] [place] 07/16/17 [Outpatient Order] Phenytoin Na Extended [Dilantin -] 100 mg PO DAILY #30 cap 07/16/17 REVIEW OF SYSTEMS CONSTITUTIONAL: Absent: fever, diaphoresis, generalized weakness, malaise, loss of appetite, weight change Present: chronic chills HEENT: Absent: rhinorrhea, nasal congestion, throat pain, throat swelling, difficulty swallowing, mouth swelling, ear pain, eye pain, visual changes CARDIOVASCULAR: Absent: chest pain, syncope, palpitations, irregular heart rate, lightheadedness , peripheral edema RESPIRATORY: Present: cough, SOB GASTROINTESTINAL: Absent: abdominal pain, abdominal distension, nausea diarrhea, constipation, melena, hematochezia Present: nausea GENITOURINARY: Absent: dysuria, frequency, urgency, hesitancy, hematuria, flank pain, genital pain MUSCULOSKELETAL: Absent: myalgia, arthralgia, joint swelling, back pain, neck pain SKIN: Absent: rash, itching, pallor HEMATOLOGIC/IMMUNOLOGIC: Absent: easy bleeding, easy bruising, lymphadenopathy, frequent infections ENDOCRINE: Absent: unexplained weight gain, unexplained weight loss, heat intolerance, cold intolerance NEUROLOGIC: Absent: headache, focal weakness or paresthesias, dizziness, unsteady gait, seizure, mental status changes, bladder or bowel incontinence PSYCHIATRIC: Absent: anxiety, depression, suicidal or homicidal ideation, hallucinations. Vital Signs - 24 hr 07/21/17 07/21/17 07/21/17 13:00 16:15 17:24 Temperature 100.7 F H 99.1 F Pulse Rate 82 Pulse Rate [ 87 92 H Apical] Respiratory 30 H 26 H 24 Rate Blood Pressure 131/69 Blood Pressure 118/74 119/75 [Right Arm] O2 Sat by Pulse 100 100 95 Oximetry (%) PHYSICAL EXAMINATION GENERAL: Awake, alert, in distress, breathing rapidly, anxious-appearing, cervical collar on HEAD: Normal with no signs of trauma. 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 Moist mucous membranes. LUNGS: diffuse mild wheezing and rhonchi, poor inspiratory effort, breathing quickly and unable to finish sentences without stopping for breath HEART: Regular rate and rhythm, normal S1 and S2 without murmur, rub or gallop. ABDOMEN: Soft, nontender, not distended, normoactive bowel sounds, no guarding, no rebound, no masses. No hepatomegaly or splenomegaly. MUSCULOSKELETAL: bandages overlying L hip incision with justin and surrounding ecchymosis. 1+ pitting edema b/l LE NEUROLOGICAL: Cranial nerves II-XII intact. Normal speech. CBC,CMP WBC 9.0 K/mm3 (4.0-10.0) 07/21/17 13:35 RBC 3.48 M/mm3 (4.00-5.60) L D 07/21/17 13:35 Hgb 11.2 GM/dL (11.7-16.9) L D 07/21/17 13:35 Hct 33.4 % (35.4-49) L D 07/21/17 13:35 MCV 96.0 fl (80-96) 07/21/17 13:35 MCH 32.2 pg (25.7-33.7) 07/21/17 13:35 MCHC 33.6 g/dl (32.0-35.9) 07/21/17 13:35 RDW 14.2 % (11.9-15.9) 07/21/17 13:35 Plt Count 337 K/MM3 (134-434) D 07/21/17 13:35 MPV 7.7 fl (7.5-11.1) 07/21/17 13:35 Neutrophils % 78.7 % (42.8-82.8) 07/21/17 13:35 Lymphocytes % 9.1 % (8-40) D 07/21/17 13:35 Monocytes % 9.5 % (3.8-10.2) 07/21/17 13:35 Eosinophils % 2.1 % (0-4.5) D 07/21/17 13:35 Basophils % 0.6 % (0-2.0) 07/21/17 13:35 Sodium 137 mmol/L (136-145) 07/21/17 13:35 Potassium 4.1 mmol/L (3.5-5.1) 07/21/17 13:35 Chloride 101 mmol/L (98-107) 07/21/17 13:35 Carbon Dioxide 23 mmol/L (21-32) 07/21/17 13:35 Anion Gap 13 (8-16) 07/21/17 13:35 BUN 29 mg/dL (7-18) H 07/21/17 13:35 Creatinine 1.1 mg/dL (0.7-1.3) 07/21/17 13:35 Creat Clearance w eGFR > 60 (>60) 07/21/17 13:35 Random Glucose 124 mg/dL (74-106) H D 07/21/17 13:35 Lactic Acid 3.2 mmol/L (0.4-2.0) H* 07/21/17 13:35 Calcium 7.9 mg/dL (8.5-10.1) L 07/21/17 13:35 Total Bilirubin 0.7 mg/dL (0.2-1.0) 07/21/17 13:35 AST 29 U/L (15-37) D 07/21/17 13:35 ALT 27 U/L (12-78) D 07/21/17 13:35 Alkaline Phosphatase 134 U/L (45-117) H D 07/21/17 13:35 Creatine Kinase 150 IU/L (39-308) 07/21/17 13:35 Creatine Kinase Index 0.9 % (0.0-5.0) 07/21/17 13:35 CK-MB (CK-2) 1.493 ng/mL (0.5-3.6) 07/21/17 13:35 Troponin I < 0.02 ng/ml (0.00-0.05) 07/21/17 13:35 Total Protein 5.8 g/dl (6.4-8.2) L 07/21/17 13:35 Albumin 2.4 g/dl (3.4-5.0) L D 07/21/17 13:35 Troponin, BNP 07/21/17 13:35 Troponin I < 0.02 Abnormal Lab Results 07/21/17 07/21/17 07/21/17 13:35 13:35 13:35 RBC 3.48 L D Hgb 11.2 L D Hct 33.4 L D BUN 29 H Random Glucose 124 H D Lactic Acid 3.2 H* Calcium 7.9 L Alkaline Phosphatase 134 H D Total Protein 5.8 L Albumin 2.[address] angiogram: No PE, no discrete pulmonary infiltrate CXR: no interval change CT lumbar spine: multiple vertebral and disc pathology that is mostly chronic ASSESSMENT/PLAN: Pt is a 87yo M w/ hx of seizure Disorder, Parkinsons, prior CVA in 2012, and recent hospitalization for hip surgery s/p fall (07/13/2017) who presents with fever, SOB, tachypnea, found to have a lactic acid of 3, meeting criteria for severe sepsis. #Severe Sepsis -possibly 2/2 HCAP. PE ruled out on CT angiogram. -continue vanc and zosyn -APAP for fever/pain -NS at 50 cc/hr -f/u blood and urine culture, UA, and influenza Ag -lactic acid: 3.2 --> 1.8 -ID consulted, f/u recs #tachypnea/SOB -possibly 2/2 HCAP -O2 via NC -duonebs q6h standing -incentive spirometry -monitor vital signs #seizure disorder -continue phenytoin 100mg qd, keppra 500mg BID #parkinson's disorder -continue sinemet 25/100 BID #HTN -continue toprol 50 #HLD -continue lipitor 20mg qd #BPH -continue flomax and finasteride #constipation -docusate 100mg BID and miralax 17g #Hx of CVA -continue plavix #Hx of anemia -continue folic acid and vit. B12 #FEN/PPx -NS at 50 cc/hr -Na of 133 -sodium controlled diet -lovenox 40 -protonix 40 ---- Rancho Leon MD PGY1 Visit type - Emergency Visit Emergency Visit: Yes ED Registration Date: 07/21/17 Care time: The patient presented to the Emergency Department on the above date and was hospitalized for further evaluation of their emergent condition. - New Patient This patient is new to me today: Yes Date on this admission: 07/22/17 - Critical Care Critical Care patient: No
[2017-07-21] MEDS ORDERED: ACETAMINOPHEN 325 MG TABLET (FP) ONE (18:00)
[2017-07-21] MEDS: ACETAMINOPHEN 325 MG TABLET (FP) PO PRN (18:00)
[2017-07-21] MEDS: ENOXAPARIN NA (PORCINE) 40 MG/0.4 ML DISP.SYRIN SQ SCH (18:00)
[2017-07-21] MEDS ORDERED: ENOXAPARIN NA (PORCINE) 40 MG/0.4 ML DISP.SYRIN SQ ONE (18:00)
[2017-07-21] MEDS ORDERED: SODIUM CHLORIDE 1,000 ML IV SCH (18:15)
--- NOTE | 2017-07-21 18:47 | HP ---
Admitting History and Physical - Primary Care Physician PCP: Obdulio Archuleta MD - Admission Chief Complaint: Shortness of breath History of Present Illness: Briefly, 87 yo M h/o seizure, parkinson's disease, CVA (2012), hip surgery s/p fall (07/13/2017) presented to the ED with shortness of breath and wheezing. Per patient and his aid at bedside, he started having non productive cough with fever, worsening shortness of breath and noticeable wheezing in the past few days. Denies chest pain, dizziness, n/v, urinary and bowel symptoms. In the ED he's found to have a temp of 100.7 and tachypenic. Sepsis workup was done in ED and he received neb, fluids, vanco and zosyn. - Past Medical History [employer] COMPLIANCE SPECIALIST: Yes: CVA, Seizure, Parkinson's, Other Cardiovascular: Yes: HTN, Hyperlipdemia. No: AFIB Pulmonary: Yes: Bronchitis (father of tuberculosis when patient was 10 years old but patient has no history of tuberculosis). No: Asthma (never smoked. 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 No: Ascites Renal/: Yes: BPH Heme/Onc: Yes: Anemia Dermatology: Yes: Other (skinlesions on chest, leg and back) - Past Surgical History Past Surgical History: Yes: None - Smoking History Smoking history: Never smoked Have you smoked in the past 12 months: No Aproximately how many cigarettes per day: 0 - Alcohol/Substance Use Hx Alcohol Use: No History of Substance Use: reports: None - Social History ADL: Family Assistance (has aid at home) Occupation: retired History of Recent Travel: No Home Medications - Allergies Allergies/Adverse Reactions: Allergies Allergy/AdvReac Type Severity Reaction Status Date / Time No Known Allergies Allergy Verified 07/12/17 22:32 - Home Medications Home Medications: Ambulatory Orders Levetiracetam [Keppra -] 500 mg PO BID 02/18/14 Simvastatin [Zocor -] 40 mg PO HS 02/18/14 Tamsulosin HCl [Flomax -] 0.4 mg PO DAILY 02/18/14 Omeprazole 40 mg PO ACBK 03/12/14 Clopidogrel Bisulfate [Clopidogrel] 75 mg PO DAILY 05/07/14 Ergocalciferol (Vitamin D2) [Drisdol] 10,000 units PO WEEKLY 07/11/16 Finasteride [Proscar -] 5 mg PO DAILY 07/11/16 Carbidopa/Levodopa *Cr* 25/100 [Sinemet *Cr* 25/100 -] 1 combo PO BID 07/12/16 Docusate Sodium [Colace -] 100 mg PO BID #60 capsule 07/14/16 Polyethylene Glycol 3350 [Miralax 119 gm Btl -] 17 gm PO DAILY #1 bottle Acetaminophen [Tylenol .Regular Strength -] 650 mg PO Q4H PRN #0 tablet Albuterol 0.083% Nebulizer Aida [Ventolin 0.083% Nebulizer Soln -] 1 amp NEB Q6H PRN #30 amp 09/14/16 Albuterol Sulfate Inhaler - [Ventolin HFA Inhaler -] 1 puff IH Q6H PRN #1 inhaler 09/14/16 Miscellaneous Medical Supply [Outpatient Order] 1 each ASDIR #1 misc Miscellaneous Medical Supply [Outpatient Order] 1 each ASDIR #1 misc Amox-Tr/K Cl [Augmentin 250-125mg Tablet -] 1 tab PO BID@0800,1730 #14 tablet Cyanocobalamin Vit B-12 Inj. [Vitamin B12 Injection -] 1,000 mcg IM DAILY #1 vial 07/16/17 Folic Acid - 1 mg PO DAILY #30 tablet 07/16/17 Metoprolol Succinate [Toprol XL -] 50 mg PO HS #30 tab 07/16/17 Miscellaneous Drug Not In Syst [Outpatient Lab Test] 1 each ASDIR #1 misc 07/24 Miscellaneous Medical Supply [Outpatient Order] 1 each ASDIR #1 misc Phenytoin Na Extended [Dilantin -] 100 mg PO DAILY #30 cap 07/16/17 Family Disease History - Family Disease History Family Disease History: Other: Father (TB- ), Mother (), Sister ( dementia) Review of Systems - Review of Systems Constitutional: reports: Fever Cardiovascular: denies: Chest Pain Respiratory: reports: SOB Gastrointestinal: reports: No Symptoms Physical Examination Vital Signs: Vital Signs Temperature 99.1 F 07/21/17 16:15 Pulse Rate 92 H 07/21/17 17:24 Respiratory Rate 24 07/21/17 17:24 Blood Pressure 119/75 07/21/17 17:24 O2 Sat by Pulse Oximetry (%) 95 07/21/17 17:24 Constitutional: Yes: Moderate Distress, Other (unable to speak in full sentences ) Eyes: Yes: Other (L pinpoint pupil, R miotic pupil) Neck: Yes: Decreased ROM (wearing C-collar) Cardiovascular: Yes: Regular Rate and Rhythm Respiratory: Yes: Cough, Poor Air Entry, SOB, Tachypnea, Wheezes Gastrointestinal: Yes: WNL Extremities: Yes: Other (L hip surgical wound with dressing and justin + ecchymosis) Edema: Yes Edema: LLE: 1+, RLE: 1+ Imaging - Results Chest X-ray: Report Reviewed, Image Reviewed Cat Scan: Report Reviewed, Image Reviewed EKG: Report Reviewed, Image Reviewed Assessment/Plan 87 yo M h/o seizure, parkinson's disease, CVA (2012), hip surgery s/p fall (2016) admitted to med-surg inpatient for severe sepsis. Severe sepsis - Likely 2/2 PNA - Vanco and zosyn x 2 doses - Fluids - Lactate normalized - f/u cultures - ID consult C1 fracture - Continue cervical collar HTN - Continue metoprolol HLD - Continue zocor Seizure disorder - Cont. AEDs Parkinson disease - Continue sinemet BPH - Continue Flomax, Proscar FEN - Cont. IVF - Normal lytes - Na+ controlled diet Prophylaxis - DVT: lovenox - GI: not indicated Dispo - Admit to med-surg Visit type - Emergency Visit Emergency Visit: Yes ED Registration Date: 07/21/17 Care time: The patient presented to the Emergency Department on the above date and was hospitalized for further evaluation of their emergent condition. - New Patient This patient is new to me today: Yes Date on this admission: 07/21/17 - Critical Care Critical Care patient: No
[2017-07-21 20:33] VITALS: BMI 25.4
--- NOTE | 2017-07-21 20:43 | PN ---
Teaching Attending Note Name of Resident: Rancho Leon ATTENDING PHYSICIAN STATEMENT I saw and evaluated the patient. I reviewed the resident's note and discussed the case with the resident. I agree with the resident's findings and plan as documented. SUBJECTIVE: This is an 87 year old man with a history of seizures, CVA, Parkinson disease, HTN, hyperlipidemia, GERD, BPH, recent left hip fracture who comes to the ER because of SOB. As per his aide, he has had a non-productive cough, fever, SOB and wheezing for several days. OBJECTIVE: Vital Signs Period Temp Pulse Resp BP Sys/Baig Pulse Ox Last 24 Hr 98.3 F-100.7 F 82-92 24-30 118-151/69-79 95-100 GENERAL: Moderate respiratory distress HEART: S1S2, RRR LUNGS: Bilateral rhonchi and wheezes ABDOMEN: Soft, non-tender, non-distended, normal BS EXTREMITIES: 1+ edema ASSESSMENT AND PLAN: This is an 87 year old man with a history of seizures, CVA, Parkinson disease, HTN, hyperlipidemia, GERD, BPH, recent left hip fracture who presents to the ER with fever, cough, SOB and wheezing for several days. 1. Severe sepsis (temp 100.7, RR 30, lactic acid 3.2) secondary to healthcare- associated pneumonia - Zosyn, Vancomycin - IV fluid - Monitor lactic acid - Follow up blood cultures - ID consult 2. Seizure disorder - Continue Keppra, Dilantin 3. History of CVA 4. Parkinson disease - Continue Sinemet 5. Hypertension - Continue Toprol XL 6. Hyperlipidemia - Continue Zocor 7. GERD - Continue Prilosec 8. BPH - Continue Flomax, Proscar 9. Recent left intertrochanteric femur fracture - s/p ORIF 07/13 10. C1 fracture - Continue cervical collar
[2017-07-21] MEDS ORDERED: PIPERACILLIN/TAZOB 4.5 GM 4.5 GM in DEXTROSE 5%-WATER 100 ML IVPB ONE (21:00)
[2017-07-21] MEDS ORDERED: PIPERACILLIN/TAZOB 4.5 GM/100 ML PRE-DOCKED IVPB SCH (21:00)
[2017-07-21] MEDS: levETIRAcetam 500 MG TABLET (FP) PO SCH (21:21)
[2017-07-21] MEDS: DOCUSATE SODIUM 100 MG CAPSULE (FP) PO SCH (21:21)
[2017-07-21] MEDS: METOPROLOL SUCCINATE 50 MG TAB.SR.24H (FP) PO SCH (21:21)
[2017-07-21] MEDS: ATORVASTATIN CA 20 MG TABLET (FP) PO SCH (21:21)
[2017-07-21] MEDS ORDERED: VANCOMYCIN 1,000 MG in DEXTROSE 5%-WATER - 250 ML IVPB SCH (22:00)
[2017-07-21] MEDS: ALBUTEROL SO4 2.5/IPRATROPIUM 0.5 INH SOL 3 ML VIAL.NEB. NEB SCH (23:20)
[2017-07-22] MEDS ORDERED: PIPERACILLIN/TAZOB 3.375 GM 3.375 GM in DEXTROSE 5%-WATER - 50 ML IVPB ONE ×2 (02:00→14:00)
[2017-07-22] MEDS ORDERED: PIPERACILLIN/TAZOB 3.375 GM/50 ML PRE-DOCKED IVPB ONE (02:00)
[2017-07-22] MEDS ORDERED: VANCOMYCIN 1,000 MG in DEXTROSE 5%-WATER - 250 ML IVPB ONE ×3 (02:00)
[2017-07-22] MEDS ORDERED: PIPERACILLIN/TAZOBACTAM 3.375 GM VIAL IVPB ONE ×2 (02:28→16:57)
[2017-07-22] MEDS ORDERED: DEXTROSE 5%-WATER - 50 ML IVPB ONE ×2 (02:29→16:57)
[2017-07-22] MEDS: PANTOPRAZOLE 40 MG TABLET (FP) PO SCH (06:16)
[2017-07-22] MEDS: ALBUTEROL SO4 2.5/IPRATROPIUM 0.5 INH SOL 3 ML VIAL.NEB. NEB SCH ×4 (07:25→23:23)
[2017-07-22 07:59] LABS: BASOPHIL 0.4 % (0-2.0); EOSINOPHIL 3.2 % (0-4.5); MCH 32.4 pg (25.7-33.7); MCHC 34.3 g/dl (32.0-35.9); MEAN CELL VOLUME 94.3 fl (80-96); MEAN PLT VOLUME 7.6 fl (7.5-11.1); NEUTROPHILS 82.2 % (42.8-82.8); PLATELET COUNT 360 K/MM3 (134-434); RDW 14.1 % (11.9-15.9); WHITE BLOOD COUNT 8.1 K/mm3 (4.0-10.0)
[2017-07-22 08:31] LABS: ALBUMIN 2.3 g/dl (3.4-5.0); ANION GAP 8 (8-16); CALCIUM 8.2 mg/dL (8.5-10.1); CO2 24 mmol/L (21-32); CREATININE 1.2 mg/dL (0.7-1.3); GLUCOSE,RANDOM 101 mg/dL (74-106); SGOT/AST 31 U/L (15-37); SGPT/ALT 7 U/L (12-78)
[2017-07-22 08:32] LABS: ALK PHOS 122 U/L (45-117); BILIRUBIN,TOTAL 0.6 mg/dL (0.2-1.0); TOT PROT 5.6 g/dl (6.4-8.2)
[2017-07-22] MEDS ORDERED: SODIUM CHLORIDE 1,000 ML IV SCH (09:00)
[2017-07-22] MEDS: ENOXAPARIN NA (PORCINE) 40 MG/0.4 ML DISP.SYRIN SQ SCH (09:32)
[2017-07-22] MEDS: PHENYTOIN NA EXTENDED 100 MG CAPSULE (FP) PO SCH (09:33)
[2017-07-22] MEDS: FINASTERIDE 5 MG TABLET (FP) PO SCH (09:33)
[2017-07-22] MEDS: levETIRAcetam 500 MG TABLET (FP) PO SCH ×2 (09:33→21:51)
[2017-07-22] MEDS: CLOPIDOGREL BISULFATE 75 MG TABLET (FP) PO SCH (09:33)
[2017-07-22] MEDS: DOCUSATE SODIUM 100 MG CAPSULE (FP) PO SCH ×2 (09:33→21:52)
[2017-07-22] MEDS: TAMSULOSIN HCL 0.4 MG CAP.ER.24H (FP) PO SCH (09:33)
[2017-07-22] MEDS: CYANOCOBALAMIN (VITAMIN B-12) 1000 MCG/1 ML VIAL IM SCH (09:33)
[2017-07-22] MEDS: FOLIC ACID 1 MG TABLET (FP) PO SCH (09:33)
[2017-07-22] MEDS: POLYETHYLENE GLYCOL 3350 119 GM BTL PO SCH (09:34)
[2017-07-22 09:36] LABS: URINE APPEARANCE SLCLOUDY; URINE BILIRUBIN NEGATIVE (NEGATIVE); URINE BLOOD NEGATIVE (NEGATIVE); URINE COLOR YELLOW; URINE GLUCOSE (UA) NEGATIVE (NEGATIVE); URINE KETONE NEGATIVE (NEGATIVE); URINE LEUK ESTERASE NEGATIVE (NEGATIVE); URINE NITRITE NEGATIVE (NEGATIVE); URINE PROTEIN NEGATIVE (NEGATIVE); URINE UROBILINOGEN NEGATIVE mg/dL (0.2-1.0)
[2017-07-22] MEDS ORDERED: ERGOCALCIFEROL 8,000 UNITS/ML DROPSBTL PO SCH (10:00)
[2017-07-22] MEDS ORDERED: FLU VACCINE QUAD 60 MCG/0.5 ML (MDV 17-18) IM ONE (11:00)
[2017-07-22] MEDS ORDERED: PIPERACILLIN/TAZOB 3.375 GM/50 ML PRE-DOCKED IV ONE (13:13)
--- NOTE | 2017-07-22 13:20 | PN ---
Physical Exam: SUBJECTIVE: Patient seen and examined. No acute events overnight. Pt reports no SOB, chest pain, lightheadedness, abdominal pain, n/v/c/d, or dysuria. He states that he thinks he was here for one week and that "you are keeping me here under false pretenses." OBJECTIVE: Vital Signs Period Temp Pulse Resp BP Sys/Baig Pulse Ox Last 24 Hr 97.8 F-99.6 F 81-92 21-200 104-151/55-79 95-100 GENERAL: Awake, alert, in NAD, cervical collar on HEAD: Normal with no signs of trauma. 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 Moist mucous membranes. LUNGS: mild wheezing and rhonchi, poor inspiratory effort, breathing at normal rate HEART: Regular rate and rhythm, normal S1 and S2 without murmur, rub or gallop. ABDOMEN: Soft, nontender, not distended, normoactive bowel sounds, no guarding, no rebound, no masses. No hepatomegaly or splenomegaly. MUSCULOSKELETAL: bandages overlying L hip incision with justin and surrounding ecchymosis. 1+ pitting edema b/l LE NEUROLOGICAL: Cranial nerves II-XII intact. Normal speech. Psych: agitated, paranoid delusions Laboratory Results - last 24 hr 07/21/17 07/21/17 07/22/17 17:55 19:00 07:00 WBC RBC Hgb Hct MCV MCH MCHC RDW Plt Count MPV Neutrophils % Lymphocytes % Monocytes % Eosinophils % Basophils % Sodium Potassium Chloride Carbon Dioxide Anion Gap BUN Creatinine Creat Clearance w eGFR Random Glucose Lactic Acid 1.8 Calcium Total Bilirubin AST ALT Alkaline Phosphatase Troponin I < 0.02 Total Protein Albumin Urine Color Yellow Urine Appearance Slcloudy Urine pH 5.0 D Urine Protein Negative Urine Glucose (UA) Negative Urine Ketones Negative Urine Blood Negative Urine Nitrite Negative Urine Bilirubin Negative Urine Urobilinogen Negative 07/22/17 07/22/17 07:30 07:30 WBC 8.1 RBC 3.00 L Hgb 9.7 L D Hct 28.3 L D MCV 94.3 MCH 32.4 MCHC 34.3 RDW 14.1 Plt Count 360 MPV 7.6 Neutrophils % 82.2 Lymphocytes % 5.7 L D Monocytes % 8.5 Eosinophils % 3.2 Basophils % 0.4 Sodium 133 L Potassium 4.2 Chloride 101 Carbon Dioxide 24 Anion Gap 8 BUN 31 H Creatinine 1.2 Creat Clearance w eGFR 57.01 Random Glucose 101 Lactic Acid Calcium 8.2 L Total Bilirubin 0.6 AST 31 ALT 7 L D Alkaline Phosphatase 122 H Troponin I Total Protein 5.6 L Albumin 2.3 L Urine Color Urine Appearance Urine pH Urine Protein Urine Glucose (UA) Urine Ketones Urine Blood Urine Nitrite Urine Bilirubin Urine Urobilinogen Active Medications Generic Name Dose Route Start Last Admin Trade Name Freq PRN Reason Stop Dose Admin Acetaminophen 650 mg 07/21/17 16:32 07/21/17 18:00 Tylenol - PO 650 mg Q4H PRN Administration FEVER OR PAIN Albuterol/Ipratropium 1 amp 07/22/17 00:00 07/22/17 11:28 Duoneb - NEB 1 amp QIDR SARAVANAN Administration Atorvastatin Calcium 20 mg 07/21/17 22:00 07/21/17 21:21 Lipitor - PO 20 mg HS SARAVANAN Administration Carbidopa/Levodopa 1 combo 07/21/17 22:00 07/22/17 09:33 Sinemet *Cr* 25/100 - PO 1 combo BID SARAVANAN Administration Clopidogrel Bisulfate 75 mg 07/22/17 10:00 07/22/17 09:33 Plavix - PO 75 mg DAILY SARAVANAN Administration Cyanocobalamin 1,000 mcg 07/22/17 10:00 07/22/17 09:33 Vitamin B12 Injection - IM 1,000 mcg DAILY SARAVANAN Administration Docusate Sodium 100 mg 07/21/17 22:00 07/22/17 09:33 Colace - PO 100 mg BID SARAVANAN Administration Enoxaparin Sodium 40 mg 07/21/17 16:45 07/22/17 09:32 Lovenox - SQ 40 mg DAILY SARAVANAN Administration Ergocalciferol 10,000 units 07/22/17 10:00 Drisdol Oral Solution - PO Q7D@1000 SARAVANAN Finasteride 5 mg 07/22/17 10:00 07/22/17 09:33 Proscar - PO 5 mg DAILY SARAVANAN Administration Folic Acid 1 mg 07/22/17 10:00 07/22/17 09:33 Folic Acid - PO 1 mg DAILY SARAVANAN Administration Sodium Chloride 1,000 mls @ 50 mls/hr 07/22/17 09:00 07/22/17 09:35 Normal Saline - IV 07/23/17 08:52 50 mls/hr ASDIR SARAVANAN Administration Levetiracetam 500 mg 07/21/17 22:00 07/22/17 09:33 Keppra - PO 500 mg BID SARAVANAN Administration Metoprolol Succinate 50 mg 07/21/17 22:00 07/21/17 21:21 Toprol Xl - PO 50 mg HS SARAVANAN Administration Pantoprazole Sodium 40 mg 07/22/17 07:00 07/22/17 06:16 Protonix - PO 40 mg ACBK SARAVANAN Administration Phenytoin Sodium 100 mg 07/22/17 10:00 07/22/17 09:33 Dilantin - PO 100 mg DAILY SARAVANAN Administration Piperacillin Sod/Tazobactam Sod 3.375 gm 07/22/17 13:13 Zosyn 3.375gm Ivpb (Pre-Docked) IV 07/22/17 13:14 ONCE ONE Protocol Polyethylene Glycol 17 gm 07/22/17 10:00 07/22/17 09:34 Miralax (For Daily Use) - PO 17 grams DAILY SARAVANAN Administration Tamsulosin HCl 0.4 mg 07/22/17 10:00 07/22/17 09:33 Flomax - PO 0.4 mg DAILY SARAVANAN Administration Vancomycin HCl 1,000 mg 07/22/17 13:14 Vancomycin (Pre-Docked) IVPB 07/22/17 13:15 ONCE ONE Protocol ASSESSMENT/PLAN: Pt is a 87yo M w/ hx of seizure Disorder, Parkinsons, prior CVA in 2012, and recent hospitalization for hip surgery s/p fall (07/13/2017) who presents with fever, SOB, tachypnea, found to have a lactic acid of 3, admitted for severe sepsis possibly 2/2 HCAP. #Severe Sepsis -possibly 2/2 HCAP. PE ruled out on CT angiogram. -vanc and zosyn (to receive 3rd dose of each this afternoon) -APAP for fever/pain -NS at 50 cc/hr -f/u blood and urine culture -UA: negative -influenza Ag: preliminarily negative, f/u final result -lactic acid: 3.2 --> 1.8 -ID consulted, f/u recs #tachypnea/SOB- improving -possibly 2/2 HCAP -O2 via NC -duonebs q6h standing -incentive spirometry -monitor vital signs #seizure disorder -continue phenytoin 100mg qd, keppra 500mg BID #parkinson's disorder -continue sinemet 25/100 BID #HTN -continue toprol 50 #HLD -continue lipitor 20mg qd #BPH -continue flomax and finasteride #constipation -docusate 100mg BID and miralax 17g #Hx of CVA -continue plavix #Hx of anemia -continue folic acid and vit. B12 #FEN/PPx -NS at 50 cc/hr -Na of 133 -sodium controlled diet -lovenox 40 -protonix 40 ---- Rancho Leon MD PGY1 Visit type - Emergency Visit Emergency Visit: Yes ED Registration Date: 07/21/17 Care time: The patient presented to the Emergency Department on the above date and was hospitalized for further evaluation of their emergent condition. - New Patient This patient is new to me today: No - Critical Care Critical Care patient: No
[2017-07-22] MEDS ORDERED: VANCOMYCIN 1 GRAM (PRE-DOCKED) 1,000 MG/250 ML BAG IVPB ONE ×2 (14:00→17:30)
--- NOTE | 2017-07-22 15:24 | CON.ID ---
Consult Consult Specialty:: infectious diseases Reason for Consultation:: fever,pna - History of Present Illness Chief Complaint: weakness History of Present Illness: 87yo M w/ hx of seizure Disorder, Parkinsons, prior CVA in 2012, and recent hospitalization for hip surgery s/p fall (07/13/2017) who presents after his aid noticed that he was wheezing. Pt reports that he has had mild SOB that has been worsening the past few days, and he endorses a non-productive cough. His aid states that he has been behaving normally the last week, has had a normal appetite, and has had no complaints. However, he had one episode of emesis yesterday after eating. patient mentions that he was getting constipated and according to the aid she has been coughing a lot but without any sputum production also he has increasingly become confused, currently according to her he is slightly better but still confused patient was pretty independent before the surgery,but since surgery he has been mostly confined to the bed patient looks calm and is able to answer questions - History Source History Provided By: Patient, Caregiver Limitations to Obtaining History: Other (confusion) - Past Medical History PRODUCT SAFETY ENGINEER: Yes: CVA, Seizure, Parkinson's, Other Cardio/Vascular: Yes: HTN, Hyperlipdemia. No: AFIB Pulmonary: Yes: Bronchitis (father of tuberculosis when patient was 10 years old but patient has no history of tuberculosis). No: Asthma (never smoked. 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 No: Ascites Renal/: Yes: BPH Dermatology: Yes: Other (skinlesions on chest, leg and back) - Past Surgical History Past Surgical History: Yes: None - Alcohol/Substance Use Hx Alcohol Use: No History of Substance Use: reports: None - Smoking History Smoking history: Never smoked Have you smoked in the past 12 months: No Aproximately how many cigarettes per day: 0 - Social History Usual Living Arrangement: Alone ADL: Family Assistance (has aid at home) Occupation: retired History of Recent Travel: No Home Medications - Allergies Allergies/Adverse Reactions: Allergies Allergy/AdvReac Type Severity Reaction Status Date / Time No Known Allergies Allergy Verified 07/12/17 22:32 - Home Medications Home Medications: Ambulatory Orders Levetiracetam [Keppra -] 500 mg PO BID 02/18/14 Simvastatin [Zocor -] 40 mg PO HS 02/18/14 Tamsulosin HCl [Flomax -] 0.4 mg PO DAILY 02/18/14 Omeprazole 40 mg PO ACBK 03/12/14 Clopidogrel Bisulfate [Clopidogrel] 75 mg PO DAILY 05/07/14 Ergocalciferol (Vitamin D2) [Drisdol] 10,000 units PO WEEKLY 07/11/16 Finasteride [Proscar -] 5 mg PO DAILY 07/11/16 Carbidopa/Levodopa *Cr* 25/100 [Sinemet *Cr* 25/100 -] 1 combo PO BID 07/12/16 Docusate Sodium [Colace -] 100 mg PO BID #60 capsule 07/14/16 Polyethylene Glycol 3350 [Miralax 119 gm Btl -] 17 gm PO DAILY #1 bottle Acetaminophen [Tylenol .Regular Strength -] 650 mg PO Q4H PRN #0 tablet Albuterol 0.083% Nebulizer Aida [Ventolin 0.083% Nebulizer Soln -] 1 amp NEB Q6H PRN #30 amp 09/14/16 Albuterol Sulfate Inhaler - [Ventolin HFA Inhaler -] 1 puff IH Q6H PRN #1 inhaler 09/14/16 Miscellaneous Medical Supply [Outpatient Order] 1 each ASDIR #1 misc Miscellaneous Medical Supply [Outpatient Order] 1 each ASDIR #1 misc Amox-Tr/K Cl [Augmentin 250-125mg Tablet -] 1 tab PO BID@0800,1730 #14 tablet Cyanocobalamin Vit B-12 Inj. [Vitamin B12 Injection -] 1,000 mcg IM DAILY #1 vial 07/16/17 Folic Acid - 1 mg PO DAILY #30 tablet 07/16/17 Metoprolol Succinate [Toprol XL -] 50 mg PO HS #30 tab 07/16/17 Miscellaneous Drug Not In Syst [Outpatient Lab Test] 1 each ASDIR #1 misc 07/24 Miscellaneous Medical Supply [Outpatient Order] 1 each ASDIR #1 misc Phenytoin Na Extended [Dilantin -] 100 mg PO DAILY #30 cap 07/16/17 Family Disease History - Family Disease History Family Disease History: Other: Father (TB- ), Mother (), Sister ( dementia) Review of Systems - Review of Systems Constitutional: reports: Fever Eyes: reports: No Symptoms HENT: reports: No Symptoms Neck: reports: No Symptoms Cardiovascular: reports: No Symptoms Respiratory: reports: Cough, SOB Gastrointestinal: reports: Constipation Genitourinary: reports: No Symptoms Breasts: reports: No Symptoms Reported Musculoskeletal: reports: Joint Pain Integumentary: reports: No Symptoms Neurological: reports: Confusion Endocrine: reports: No Symptoms Hematology/Lymphatic: reports: No Symptoms Psychiatric: reports: No Symptoms Physical Exam Vital Signs: Vital Signs Temperature 98.6 F 07/22/17 14:00 Pulse Rate 94 H 07/22/17 14:00 Respiratory Rate 22 07/22/17 14:00 Blood Pressure 106/59 07/22/17 14:00 O2 Sat by Pulse Oximetry (%) 98 07/22/17 11:27 Constitutional: Yes: Mild Distress, Thin Eyes: Yes: Conjunctiva Clear HENT: Yes: Other (cervical collar) Neck: Yes: Other Cardiovascular: Yes: Regular Rate and Rhythm Respiratory: Yes: Poor Air Entry, Wheezes Gastrointestinal: Yes: Normal Bowel Sounds, Soft Extremities: Yes: Other Neurological: Yes: Alert, Other Psychiatric: Yes: Alert, Other Labs: CBC, BMP 07/22/17 07:30 07/22/17 07:30 Imaging - Results Chest X-ray: Report Reviewed, Image Reviewed Cat Scan: Report Reviewed, Image Reviewed Other: Report Reviewed, Image Reviewed Assessment/Plan Pt is a 87yo M w/ hx of seizure Disorder, Parkinsons, prior CVA in 2012, and recent hospitalization for hip surgery s/p fall (07/13/2017) who presents with fever, SOB, tachypnea, found to have a lactic acid of 3, meeting criteria for severe sepsis. Sepsis seizure disorder parkinson's disorde HTN HLD lactic acidosis r/o pn i am worried about the elevation of the rt diaghphram patient also showing reflux signs plan will continue zosyn hydration post hydration will repeat xray if sputum--we will cx it
--- NOTE | 2017-07-22 17:06 | PN ---
Teaching Attending Note Name of Resident: [place] ATTENDING PHYSICIAN STATEMENT I saw and evaluated the patient. I reviewed the resident's note and discussed the case with the resident. I agree with the resident's findings and plan as documented. SUBJECTIVE: Patient is lying in bed with no acute distress, cachectic and frail looking patient. OBJECTIVE: Vital Signs Temperature 98.6 F 07/22/17 14:00 Pulse Rate 94 H 07/22/17 14:00 Respiratory Rate 22 07/22/17 14:00 Blood Pressure 106/59 07/22/17 14:00 O2 Sat by Pulse Oximetry (%) 98 07/22/17 11:27 CBCD WBC 8.1 K/mm3 (4.0-10.0) 07/22/17 07:30 RBC 3.00 M/mm3 (4.00-5.60) L 07/22/17 07:30 Hgb 9.7 GM/dL (11.7-16.9) L D 07/22/17 07:30 Hct 28.3 % (35.4-49) L D 07/22/17 07:30 MCV 94.3 fl (80-96) 07/22/17 07:30 MCHC 34.3 g/dl (32.0-35.9) 07/22/17 07:30 RDW 14.1 % (11.9-15.9) 07/22/17 07:30 Plt Count 360 K/MM3 (134-434) 07/22/17 07:30 MPV 7.6 fl (7.5-11.1) 07/22/17 07:30 CMP Sodium 133 mmol/L (136-145) L 07/22/17 07:30 Potassium 4.2 mmol/L (3.5-5.1) 07/22/17 07:30 Chloride 101 mmol/L (98-107) 07/22/17 07:30 Carbon Dioxide 24 mmol/L (21-32) 07/22/17 07:30 Anion Gap 8 (8-16) 07/22/17 07:30 BUN 31 mg/dL (7-18) H 07/22/17 07:30 Creatinine 1.2 mg/dL (0.7-1.3) 07/22/17 07:30 Creat Clearance w eGFR 57.01 (>60) 07/22/17 07:30 Random Glucose 101 mg/dL (74-106) 07/22/17 07:30 Calcium 8.2 mg/dL (8.5-10.1) L 07/22/17 07:30 Total Bilirubin 0.6 mg/dL (0.2-1.0) 07/22/17 07:30 AST 31 U/L (15-37) 07/22/17 07:30 ALT 7 U/L (12-78) L D 07/22/17 07:30 Alkaline Phosphatase 122 U/L (45-117) H 07/22/17 07:30 Total Protein 5.6 g/dl (6.4-8.2) L 07/22/17 07:30 Albumin 2.3 g/dl (3.4-5.0) L 07/22/17 07:30 CARDIAC ENZYMES Creatine Kinase 150 IU/L (39-308) 07/21/17 13:35 Troponin I < 0.02 ng/ml (0.00-0.05) 07/21/17 19:00 Current Medications Generic Name Dose Route Start Last Admin Trade Name Freq PRN Reason Stop Dose Admin Acetaminophen 650 mg 07/21/17 16:32 07/21/17 18:00 Tylenol - PO 650 mg Q4H PRN Administration FEVER OR PAIN Albuterol/Ipratropium 1 amp 07/22/17 00:00 07/22/17 11:28 Duoneb - NEB 1 amp QIDR SARAVANAN Administration Atorvastatin Calcium 20 mg 07/21/17 22:00 07/21/17 21:21 Lipitor - PO 20 mg HS SARAVANAN Administration Carbidopa/Levodopa 1 combo 07/21/17 22:00 07/22/17 09:33 Sinemet *Cr* 25/100 - PO 1 combo BID SARAVANAN Administration Clopidogrel Bisulfate 75 mg 07/22/17 10:00 07/22/17 09:33 Plavix - PO 75 mg DAILY SARAVANAN Administration Cyanocobalamin 1,000 mcg 07/22/17 10:00 07/22/17 09:33 Vitamin B12 Injection - IM 1,000 mcg DAILY SARAVANAN Administration Docusate Sodium 100 mg 07/21/17 22:00 07/22/17 09:33 Colace - PO 100 mg BID SARAVANAN Administration Enoxaparin Sodium 40 mg 07/21/17 16:45 07/22/17 09:32 Lovenox - SQ 40 mg DAILY SARAVANAN Administration Ergocalciferol 10,000 units 07/22/17 10:00 Drisdol Oral Solution - PO Q7D@1000 SARAVANAN Finasteride 5 mg 07/22/17 10:00 07/22/17 09:33 Proscar - PO 5 mg DAILY SARAVANAN Administration Folic Acid 1 mg 07/22/17 10:00 07/22/17 09:33 Folic Acid - PO 1 mg DAILY SARAVANAN Administration Sodium Chloride 1,000 mls @ 50 mls/hr 07/22/17 09:00 07/22/17 09:35 Normal Saline - IV 07/23/17 08:52 50 mls/hr ASDIR SARAVANAN Administration Piperacillin Sod/Tazobactam 50 mls @ 100 mls/hr 07/22/17 16:00 Sod 3.375 gm/ Dextrose IVPB Q8H-IV SARAVANAN Protocol Levetiracetam 500 mg 07/21/17 22:00 07/22/17 09:33 Keppra - PO 500 mg BID SARAVANAN Administration Metoprolol Succinate 50 mg 07/21/17 22:00 07/21/17 21:21 Toprol Xl - PO 50 mg HS SARAVANAN Administration Pantoprazole Sodium 40 mg 07/22/17 07:00 07/22/17 06:16 Protonix - PO 40 mg ACBK SARAVANAN Administration Phenytoin Sodium 100 mg 07/22/17 10:00 07/22/17 09:33 Dilantin - PO 100 mg DAILY SARAVANAN Administration Polyethylene Glycol 17 gm 07/22/17 10:00 07/22/17 09:34 Miralax (For Daily Use) - PO 17 grams DAILY SARAVANAN Administration Tamsulosin HCl 0.4 mg 07/22/17 10:00 07/22/17 09:33 Flomax - PO 0.4 mg DAILY SARAVANAN Administration Home Medications Medication Instructions Recorded Levetiracetam [Keppra -] 500 mg PO BID 02/18/14 Simvastatin [Zocor -] 40 mg PO HS 02/18/14 Tamsulosin HCl [Flomax -] 0.4 mg PO DAILY 02/18/14 Omeprazole 40 mg PO ACBK 03/12/14 Clopidogrel Bisulfate [Clopidogrel] 75 mg PO DAILY 05/07/14 Ergocalciferol (Vitamin D2) 10,000 units PO WEEKLY 07/11/16 [Drisdol] Finasteride [Proscar -] 5 mg PO DAILY 07/11/16 Carbidopa/Levodopa *Cr* 25/100 1 combo PO BID 07/12/16 [Sinemet *Cr* 25/100 -] Docusate Sodium [Colace -] 100 mg PO BID #60 capsule 07/14/16 Polyethylene Glycol 3350 [Miralax 17 gm PO DAILY #1 bottle 07/14/16 119 gm Btl -] Acetaminophen [Tylenol .Regular 650 mg PO Q4H PRN #0 tablet 09/06/16 Strength -] Albuterol 0.083% Nebulizer Aida 1 amp NEB Q6H PRN #30 amp 09/14/16 [Ventolin 0.083% Nebulizer Soln -] Albuterol Sulfate Inhaler - 1 puff IH Q6H PRN #1 inhaler 09/14/16 [Ventolin HFA Inhaler -] Miscellaneous Medical Supply 1 each ASDIR #1 misc 07/15/17 [Outpatient Order] Miscellaneous Medical Supply 1 each ASDIR #1 misc 07/15/17 [Outpatient Order] Amox-Tr/K Cl [Augmentin 250-125mg 1 tab PO BID@0800,1730 #14 tablet 07/16/17 Tablet -] Cyanocobalamin Vit B-12 Inj. 1,000 mcg IM DAILY #1 vial 07/16/17 [Vitamin B12 Injection -] Folic Acid - 1 mg PO DAILY #30 tablet 07/16/17 Metoprolol Succinate [Toprol XL -] 50 mg PO HS #30 tab 07/16/17 Miscellaneous Drug Not In Syst 1 each ASDIR #1 misc 07/16/17 [Outpatient Lab Test] Miscellaneous Medical Supply 1 each ASDIR #1 misc 07/16/17 [Outpatient Order] Phenytoin Na Extended [Dilantin -] 100 mg PO DAILY #30 cap 07/16/17 PE: Generally: very cachectic ;looking Head/neck: positive for Collar Chest: decreased BS at bases Heart: S1S2 positive. abdomen: soft, NT Ct scan of the chest: positive for IVC filter. reviewed. ASSESSMENT AND PLAN: This is an 87 year old man with a history of seizures, CVA, Parkinson disease, HTN, hyperlipidemia, GERD, BPH, recent left hip fracture who presents to the ER with fever, cough, SOB and wheezing for several days. # Severe sepsis presented with lactic acid 3.2 -->1.8 , on IV antibiotics zosyn and vancomycin, continue IV fluid. Blood cultures neg.so far, ID on the case # Hx of Seizure disorder continue Keppra, Dilantin # History of CVA # Parkinson disease Continue Sinemet # Hypertension Continue Toprol XL # Hyperlipidemia Continue Zocor # GERD Continue Prilosec # BPH Continue Flomax, Proscar # Recent left intertrochanteric femur fracture s/p ORIF 07/13 # Hx of C1 fracture Continue cervical collar for total of 10 weeks as per neurosurgery evaluation, DVt Px: Lovenox sq
[2017-07-22] MEDS: PIPERACILLIN/TAZOB 3.375 GM 3.375 GM in DEXTROSE 5%-WATER - 50 ML IVPB SCH (17:27)
[2017-07-22] MEDS: METOPROLOL SUCCINATE 50 MG TAB.SR.24H (FP) PO SCH (21:51)
[2017-07-22] MEDS: ATORVASTATIN CA 20 MG TABLET (FP) PO SCH (21:52)
[2017-07-22] MEDS: ACETAMINOPHEN 325 MG TABLET (FP) PO PRN (21:52)
[2017-07-23] MEDS ORDERED: DEXTROSE 5%-WATER - 50 ML IVPB ONE ×3 (01:38→18:25)
[2017-07-23] MEDS ORDERED: PIPERACILLIN/TAZOBACTAM 3.375 GM VIAL IVPB ONE ×3 (01:38→18:25)
[2017-07-23] MEDS: PIPERACILLIN/TAZOB 3.375 GM 3.375 GM in DEXTROSE 5%-WATER - 50 ML IVPB SCH ×3 (01:57→18:28)
[2017-07-23] MEDS: ACETAMINOPHEN 325 MG TABLET (FP) PO PRN (01:57)
[2017-07-23] MEDS: PANTOPRAZOLE 40 MG TABLET (FP) PO SCH (06:21)
[2017-07-23] MEDS: ALBUTEROL SO4 2.5/IPRATROPIUM 0.5 INH SOL 3 ML VIAL.NEB. NEB SCH ×4 (06:45→23:28)
[2017-07-23 07:23] LABS: MCH 32.6 pg (25.7-33.7); MCHC 34.4 g/dl (32.0-35.9); MEAN CELL VOLUME 94.7 fl (80-96); MEAN PLT VOLUME 7.3 fl (7.5-11.1); PLATELET COUNT 321 K/MM3 (134-434); RDW 13.9 % (11.9-15.9); WHITE BLOOD COUNT 5.8 K/mm3 (4.0-10.0)
[2017-07-23] MEDS ORDERED: PT OWN MED DRAWER 7, Y5N ONE (10:04)
[2017-07-23] MEDS: FINASTERIDE 5 MG TABLET (FP) PO SCH (10:26)
[2017-07-23] MEDS: POLYETHYLENE GLYCOL 3350 119 GM BTL PO SCH (10:26)
[2017-07-23] MEDS: PHENYTOIN NA EXTENDED 100 MG CAPSULE (FP) PO SCH (10:26)
[2017-07-23] MEDS: DOCUSATE SODIUM 100 MG CAPSULE (FP) PO SCH ×2 (10:26→21:48)
[2017-07-23] MEDS: levETIRAcetam 500 MG TABLET (FP) PO SCH ×2 (10:26→21:48)
[2017-07-23] MEDS: CLOPIDOGREL BISULFATE 75 MG TABLET (FP) PO SCH (10:26)
[2017-07-23] MEDS: TAMSULOSIN HCL 0.4 MG CAP.ER.24H (FP) PO SCH (10:26)
[2017-07-23] MEDS: FOLIC ACID 1 MG TABLET (FP) PO SCH (10:26)
[2017-07-23] MEDS: ENOXAPARIN NA (PORCINE) 40 MG/0.4 ML DISP.SYRIN SQ SCH (10:26)
[2017-07-23] MEDS: CYANOCOBALAMIN (VITAMIN B-12) 1000 MCG/1 ML VIAL IM SCH (10:27)
--- NOTE | 2017-07-23 10:46 | PN ---
Progress Note (short form) - Note Progress Note: Vital Signs Patient feels better but still feels tired. Temperature 97.8 F 07/23/17 09:00 Pulse Rate 74 07/23/17 09:00 Respiratory Rate 18 07/23/17 09:00 Blood Pressure 105/52 07/23/17 09:00 O2 Sat by Pulse Oximetry (%) 98 07/22/17 21:00 GENERAL: Awake, alert, in NAD, cervical collar on HEAD: Normal with no signs of trauma. 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 Moist mucous membranes. LUNGS: mild wheezing and rhonchi, poor inspiratory effort, breathing at normal rate HEART: Regular rate and rhythm, normal S1 and S2 without murmur, rub or gallop. ABDOMEN: Soft, nontender, not distended, normoactive bowel sounds, no guarding, no rebound, no masses. No hepatomegaly or splenomegaly. MUSCULOSKELETAL: bandages overlying L hip incision with justin and surrounding ecchymosis. 1+ pitting edema b/l LE NEUROLOGICAL: Cranial nerves II-XII intact. Normal speech. Psych: agitated, paranoid delusions CBCD WBC 5.8 K/mm3 (4.0-10.0) 07/23/17 06:50 RBC 2.50 M/mm3 (4.00-5.60) L 07/23/17 06:50 Hgb 8.1 GM/dL (11.7-16.9) L D 07/23/17 06:50 Hct 23.7 % (35.4-49) L D 07/23/17 06:50 MCV 94.7 fl (80-96) 07/23/17 06:50 MCHC 34.4 g/dl (32.0-35.9) 07/23/17 06:50 RDW 13.9 % (11.9-15.9) 07/23/17 06:50 Plt Count 321 K/MM3 (134-434) 07/23/17 06:50 MPV 7.3 fl (7.5-11.1) L 07/23/17 06:50 CMP Sodium 133 mmol/L (136-145) L 07/22/17 07:30 Potassium 4.2 mmol/L (3.5-5.1) 07/22/17 07:30 Chloride 101 mmol/L (98-107) 07/22/17 07:30 Carbon Dioxide 24 mmol/L (21-32) 07/22/17 07:30 Anion Gap 8 (8-16) 07/22/17 07:30 BUN 31 mg/dL (7-18) H 07/22/17 07:30 Creatinine 1.2 mg/dL (0.7-1.3) 07/22/17 07:30 Creat Clearance w eGFR 57.01 (>60) 07/22/17 07:30 Random Glucose 101 mg/dL (74-106) 07/22/17 07:30 Calcium 8.2 mg/dL (8.5-10.1) L 07/22/17 07:30 Total Bilirubin 0.6 mg/dL (0.2-1.0) 07/22/17 07:30 AST 31 U/L (15-37) 07/22/17 07:30 ALT 7 U/L (12-78) L D 07/22/17 07:30 Alkaline Phosphatase 122 U/L (45-117) H 07/22/17 07:30 Total Protein 5.6 g/dl (6.4-8.2) L 07/22/17 07:30 Albumin 2.3 g/dl (3.4-5.0) L 07/22/17 07:30 CARDIAC ENZYMES Creatine Kinase 150 IU/L (39-308) 07/21/17 13:35 Troponin I < 0.02 ng/ml (0.00-0.05) 07/21/17 19:00 Current Medications Generic Name Dose Route Start Last Admin Trade Name Freq PRN Reason Stop Dose Admin Acetaminophen 650 mg 07/21/17 16:32 07/23/17 01:57 Tylenol - PO 650 mg Q4H PRN Administration FEVER OR PAIN Albuterol/Ipratropium 1 amp 07/22/17 00:00 07/23/17 06:45 Duoneb - NEB 1 amp QIDR SARAVANAN Administration Atorvastatin Calcium 20 mg 07/21/17 22:00 07/22/17 21:52 Lipitor - PO 20 mg HS SARAVANAN Administration Carbidopa/Levodopa 1 combo 07/21/17 22:00 07/23/17 10:26 Sinemet *Cr* 25/100 - PO 1 combo BID SARAVANAN Administration Clopidogrel Bisulfate 75 mg 07/22/17 10:00 07/23/17 10:26 Plavix - PO 75 mg DAILY SARAVANAN Administration Cyanocobalamin 1,000 mcg 07/22/17 10:00 07/23/17 10:27 Vitamin B12 Injection - IM 1,000 mcg DAILY SARAVANAN Administration Docusate Sodium 100 mg 07/21/17 22:00 07/23/17 10:26 Colace - PO 100 mg BID SARAVANAN Administration Enoxaparin Sodium 40 mg 07/21/17 16:45 07/23/17 10:26 Lovenox - SQ 40 mg DAILY SARAVANAN Administration Ergocalciferol 10,000 units 07/27/17 10:00 Drisdol Oral Solution - PO discontinued, placed him on Vit D3 Q7D@1000 SARAVANAN Finasteride 5 mg 07/22/17 10:00 07/23/17 10:26 Proscar - PO 5 mg DAILY SARAVANAN Administration Folic Acid 1 mg 07/22/17 10:00 07/23/17 10:26 Folic Acid - PO 1 mg DAILY SARAVANAN Administration Piperacillin Sod/Tazobactam 50 mls @ 100 mls/hr 07/22/17 16:00 07/23/17 10:27 Sod 3.375 gm/ Dextrose IVPB 100 mls/hr Q8H-IV SARAVANAN Administration Protocol Levetiracetam 500 mg 07/21/17 22:00 07/23/17 10:26 Keppra - PO 500 mg BID SARAVANAN Administration Metoprolol Succinate 50 mg 07/21/17 22:00 07/22/17 21:51 Toprol Xl - PO 50 mg HS SARAVANAN Administration Pantoprazole Sodium 40 mg 07/22/17 07:00 07/23/17 06:21 Protonix - PO 40 mg ACBK SARAVANAN Administration Phenytoin Sodium 100 mg 07/22/17 10:00 07/23/17 10:26 Dilantin - PO 100 mg DAILY SARAVANAN Administration Polyethylene Glycol 17 gm 07/22/17 10:00 07/23/17 10:26 Miralax (For Daily Use) - PO 17 grams DAILY SARAVANAN Administration Tamsulosin HCl 0.4 mg 07/22/17 10:00 07/23/17 10:26 Flomax - PO 0.4 mg DAILY SARAVANAN Administration Home Medications Medication Instructions Recorded Levetiracetam [Keppra -] 500 mg PO BID 02/18/14 Simvastatin [Zocor -] 40 mg PO HS 02/18/14 Tamsulosin HCl [Flomax -] 0.4 mg PO DAILY 02/18/14 Omeprazole 40 mg PO ACBK 03/12/14 Clopidogrel Bisulfate [Clopidogrel] 75 mg PO DAILY 05/07/14 Ergocalciferol (Vitamin D2) 10,000 units PO WEEKLY 07/11/16 [Drisdol] Finasteride [Proscar -] 5 mg PO DAILY 07/11/16 Carbidopa/Levodopa *Cr* 25/100 1 combo PO BID 07/12/16 [Sinemet *Cr* 25/100 -] Docusate Sodium [Colace -] 100 mg PO BID #60 capsule 07/14/16 Polyethylene Glycol 3350 [Miralax 17 gm PO DAILY #1 bottle 07/14/16 119 gm Btl -] Acetaminophen [Tylenol .Regular 650 mg PO Q4H PRN #0 tablet 09/06/16 Strength -] Albuterol 0.083% Nebulizer Aida 1 amp NEB Q6H PRN #30 amp 09/14/16 [Ventolin 0.083% Nebulizer Soln -] Albuterol Sulfate Inhaler - 1 puff IH Q6H PRN #1 inhaler 09/14/16 [Ventolin HFA Inhaler -] Miscellaneous Medical Supply 1 each ASDIR #1 misc 07/15/17 [Outpatient Order] Miscellaneous Medical Supply 1 each ASDIR #1 misc 07/15/17 [Outpatient Order] Amox-Tr/K Cl [Augmentin 250-125mg 1 tab PO BID@0800,1730 #14 tablet 07/16/17 Tablet -] Cyanocobalamin Vit B-12 Inj. 1,000 mcg IM DAILY #1 vial 07/16/17 [Vitamin B12 Injection -] Folic Acid - 1 mg PO DAILY #30 tablet 07/16/17 Metoprolol Succinate [Toprol XL -] 50 mg PO HS #30 tab 07/16/17 Miscellaneous Drug Not In Syst 1 each ASDIR #1 misc 07/16/17 [Outpatient Lab Test] Miscellaneous Medical Supply 1 each ASDIR #1 misc 07/16/17 [Outpatient Order] Phenytoin Na Extended [Dilantin -] 100 mg PO DAILY #30 cap 07/16/17 Microbiology 07/22/17 07:00 Urine - Urine Clean Catch Urine Culture - Preliminary Non Lactose Fermenting Gnb 07/21/17 14:49 Blood - Peripheral Venous Blood Culture - Preliminary NO GROWTH OBTAINED AFTER 24 HOURS, INCUBATION TO CONTINUE FOR 4 DAYS. 07/21/17 14:49 Blood - Peripheral Venous Blood Culture - Preliminary NO GROWTH OBTAINED AFTER 24 HOURS, INCUBATION TO CONTINUE FOR 4 DAYS. 07/21/17 21:45 Nasopharyngeal Swab Influenza Types A,B Antigen (ROLANDA) - Preliminary 07/21/17 21:45 Nasopharyngeal Swab - Preliminary Ct scan of the chest: positive for IVC filter. reviewed. ASSESSMENT AND PLAN: This is an 87 year old man with a history of seizures, CVA, Parkinson disease, HTN, hyperlipidemia, GERD, BPH, recent left hip fracture who presents to the ER with fever, cough, SOB and wheezing for several days. # Severe sepsis presented with lactic acid 3.2 -->1.8-->1.0 today DUE TO utI GROWING PSUEDOMONAS , on IV antibiotics ON zosyn ,S/P vancomycin, continue IV fluid. Blood cultures neg.so far, Ua is growing GNB 30-40K , will monitor. ID on the case # Hx of Seizure disorder continue Keppra, Dilantin # Acute Hyponatremia , will hydrate him with IVF gentle around 50cc/hr x 1 liter # History of CVA # Parkinson disease Continue Sinemet # Hypertension Continue Toprol XL # Hyperlipidemia Continue Zocor # GERD Continue Prilosec # BPH Continue Flomax, Proscar # Recent left intertrochanteric femur fracture s/p ORIF 07/13 # Hx of C1 fracture Continue cervical collar for total of 10 weeks as per neurosurgery evaluation, DVt Px: Lovenox sq Visit type - Emergency Visit Emergency Visit: Yes ED Registration Date: 07/21/17 Care time: The patient presented to the Emergency Department on the above date and was hospitalized for further evaluation of their emergent condition. - New Patient This patient is new to me today: No - Critical Care Critical Care patient: No
[2017-07-23] MEDS ORDERED: CHOLECALCIFEROL (VITAMIN D3) 1,000 UNIT TABLET (FP) PO SCH (11:00)
--- NOTE | 2017-07-23 14:52 | PN ---
Progress Note, Physician History of Present Illness: Pt afebrile. Denies any specific complaints. Neck collar on. - Current Medication List Current Medications: Active Medications Acetaminophen (Tylenol -) 650 mg PO Q4H PRN PRN Reason: FEVER OR PAIN Last Admin: 07/23/17 01:57 Dose: 650 mg Albuterol/Ipratropium (Duoneb -) 1 amp NEB QIDR [facility] Last Admin: 07/23/17 11:03 Dose: 1 amp Atorvastatin Calcium (Lipitor -) 20 mg PO HS [facility] Last Admin: 07/22/17 21:52 Dose: 20 mg Carbidopa/Levodopa (Sinemet *Cr* 25/100 -) 1 combo PO BID [facility] Last Admin: 07/23/17 10:26 Dose: 1 combo Cholecalciferol (Vitamin D3 -) 10,000 unit PO Q7D [facility] Clopidogrel Bisulfate (Plavix -) 75 mg PO DAILY [facility] Last Admin: 07/23/17 10:26 Dose: 75 mg Cyanocobalamin (Vitamin B12 Injection -) 1,000 mcg IM DAILY [facility] Last Admin: 07/23/17 10:27 Dose: 1,000 mcg Docusate Sodium (Colace -) 100 mg PO BID [facility] Last Admin: 07/23/17 10:26 Dose: 100 mg Enoxaparin Sodium (Lovenox -) 40 mg SQ DAILY [facility] Last Admin: 07/23/17 10:26 Dose: 40 mg Finasteride (Proscar -) 5 mg PO DAILY [facility] Last Admin: 07/23/17 10:26 Dose: 5 mg Folic Acid (Folic Acid -) 1 mg PO DAILY [facility] Last Admin: 07/23/17 10:26 Dose: 1 mg Piperacillin Sod/Tazobactam (Sod 3.375 gm/ Dextrose) 50 mls @ 100 mls/hr IVPB Q8H-IV [facility] PRN Reason: Protocol Last Admin: 07/23/17 10:27 Dose: 100 mls/hr Sodium Chloride (Normal Saline -) 1,000 mls @ 50 mls/hr IV ASDIR [facility] Stop: 07/24/17 11:01 Levetiracetam (Keppra -) 500 mg PO BID [facility] Last Admin: 07/23/17 10:26 Dose: 500 mg Metoprolol Succinate (Toprol Xl -) 50 mg PO HS [facility] Last Admin: 07/22/17 21:51 Dose: 50 mg Pantoprazole Sodium (Protonix -) 40 mg PO ACBK [facility] Last Admin: 07/23/17 06:21 Dose: 40 mg Phenytoin Sodium (Dilantin -) 100 mg PO DAILY [facility] Last Admin: 07/23/17 10:26 Dose: 100 mg Polyethylene Glycol (Miralax (For Daily Use) -) 17 gm PO DAILY [facility] Last Admin: 07/23/17 10:26 Dose: 17 grams Tamsulosin HCl (Flomax -) 0.4 mg PO DAILY [facility] Last Admin: 07/23/17 10:26 Dose: 0.4 mg - Objective Vital Signs: Vital Signs Temperature 97.8 F 07/23/17 09:00 Pulse Rate 71 07/23/17 11:03 Respiratory Rate 18 07/23/17 09:00 Blood Pressure 105/52 07/23/17 09:00 O2 Sat by Pulse Oximetry (%) 95 07/23/17 11:03 Constitutional: Yes: No Distress, Other (cachectic) Neck: Yes: Other (neck collar) Cardiovascular: Yes: Regular Rate and Rhythm Respiratory: Yes: Regular Gastrointestinal: Yes: Normal Bowel Sounds, Soft Extremities: Yes: WNL Wound/Incision: Yes: Clean/Dry Psychiatric: Yes: Alert Labs: CBC, BMP 07/23/17 06:50 07/22/17 07:30 - ....Imaging Chest X-ray: Report Reviewed Problem List - Problems (1) Hypoxia Code(s): R09.02 - HYPOXEMIA (2) Pneumonia Code(s): J18.9 - PNEUMONIA, UNSPECIFIED ORGANISM Qualifiers: Pneumonia type: due to unspecified organism Laterality: unspecified laterality Lung location: unspecified part of lung Qualified Code(s): J18.9 - Pneumonia, unspecified organism (3) Acetabular fracture Code(s): S32.409A - UNSP FRACTURE OF UNSP ACETABULUM, INIT FOR CLOS FX (4) Anemia Code(s): D64.9 - ANEMIA, UNSPECIFIED (5) Elevated lactic acid level Code(s): E87.2 - ACIDOSIS (6) Fever Code(s): R50.9 - FEVER, UNSPECIFIED Qualifiers: Fever type: unspecified Qualified Code(s): R50.9 - Fever, unspecified (7) BPH (benign prostatic hyperplasia) Code(s): N40.0 - BENIGN PROSTATIC HYPERPLASIA WITHOUT LOWER URINRY TRACT SYMP (8) DVT (deep venous thrombosis) Code(s): I82.409 - ACUTE EMBOLISM AND THOMBOS UNSP DEEP VN UNSP LOWER EXTREMITY Qualifiers: DVT location: lower extremity Affected thrombotic vein of extremity: femoral Chronicity: acute Laterality: left Qualified Code(s): I82.412 - Acute embolism and thrombosis of left femoral vein (9) GERD with apnea Code(s): K21.9 - GASTRO-ESOPHAGEAL REFLUX DISEASE WITHOUT ESOPHAGITIS R06.81 - APNEA, NOT ELSEWHERE CLASSIFIED (10) Hyperlipidemia Code(s): E78.5 - HYPERLIPIDEMIA, UNSPECIFIED Qualifiers: Hyperlipidemia type: pure hypercholesterolemia (11) Hypertension Code(s): I10 - ESSENTIAL (PRIMARY) HYPERTENSION Qualifiers: Hypertension type: essential hypertension Qualified Code(s): I10 - Essential (primary) hypertension Assessment/Plan Pt afebrile now lactic acid decreased, blood cultures no growth thus far continue antibiotics for now f/u final blood/urine culture results
[2017-07-23] MEDS: SODIUM CHLORIDE 1,000 ML IV SCH (18:27)
[2017-07-23] MEDS: ATORVASTATIN CA 20 MG TABLET (FP) PO SCH (21:48)
[2017-07-23] MEDS: METOPROLOL SUCCINATE 50 MG TAB.SR.24H (FP) PO SCH (21:48)
[2017-07-24] MEDS ORDERED: DEXTROSE 5%-WATER - 50 ML IVPB ONE ×3 (01:56→17:57)
[2017-07-24] MEDS ORDERED: PIPERACILLIN/TAZOBACTAM 3.375 GM VIAL IVPB ONE ×3 (01:56→17:57)
[2017-07-24] MEDS: PIPERACILLIN/TAZOB 3.375 GM 3.375 GM in DEXTROSE 5%-WATER - 50 ML IVPB SCH ×3 (02:02→18:21)
[2017-07-24] MEDS: PANTOPRAZOLE 40 MG TABLET (FP) PO SCH (06:08)
[2017-07-24] MEDS: ALBUTEROL SO4 2.5/IPRATROPIUM 0.5 INH SOL 3 ML VIAL.NEB. NEB SCH ×4 (06:55→23:45)
[2017-07-24 08:48] LABS: BASOPHIL 0.7 % (0-2.0); MCHC 33.6 g/dl (32.0-35.9); MEAN PLT VOLUME 7.6 fl (7.5-11.1); NEUTROPHILS 75.6 % (42.8-82.8); PLATELET COUNT 381 K/MM3 (134-434); RDW 14.4 % (11.9-15.9); WHITE BLOOD COUNT 5.3 K/mm3 (4.0-10.0)
[2017-07-24 09:05] LABS: ALBUMIN 2.1 g/dl (3.4-5.0); ALK PHOS 114 U/L (45-117); ANION GAP 7 (8-16); BILIRUBIN,TOTAL 0.5 mg/dL (0.2-1.0); CALCIUM 7.6 mg/dL (8.5-10.1); CO2 25 mmol/L (21-32); CREATININE 1.2 mg/dL (0.7-1.3); GLUCOSE,RANDOM 87 mg/dL (74-106); SGOT/AST 18 U/L (15-37); SGPT/ALT 6 U/L (12-78); TOT PROT 4.9 g/dl (6.4-8.2)
[2017-07-24] MEDS: CLOPIDOGREL BISULFATE 75 MG TABLET (FP) PO SCH (10:38)
[2017-07-24] MEDS: PHENYTOIN NA EXTENDED 100 MG CAPSULE (FP) PO SCH (10:38)
[2017-07-24] MEDS: FINASTERIDE 5 MG TABLET (FP) PO SCH (10:38)
[2017-07-24] MEDS: DOCUSATE SODIUM 100 MG CAPSULE (FP) PO SCH ×2 (10:38→22:04)
[2017-07-24] MEDS: ENOXAPARIN NA (PORCINE) 40 MG/0.4 ML DISP.SYRIN SQ SCH (10:38)
[2017-07-24] MEDS: levETIRAcetam 500 MG TABLET (FP) PO SCH ×2 (10:38→22:04)
[2017-07-24] MEDS: FOLIC ACID 1 MG TABLET (FP) PO SCH (10:38)
[2017-07-24] MEDS: TAMSULOSIN HCL 0.4 MG CAP.ER.24H (FP) PO SCH (10:38)
[2017-07-24] MEDS: POLYETHYLENE GLYCOL 3350 119 GM BTL PO SCH (10:39)
[2017-07-24] MEDS: CYANOCOBALAMIN (VITAMIN B-12) 1000 MCG/1 ML VIAL IM SCH (10:39)
[2017-07-24] MEDS: SODIUM CHLORIDE 1,000 ML IV SCH (10:40)
--- NOTE | 2017-07-24 16:02 | PN ---
Progress Note (short form) - Note Progress Note: Patient is feeling better, his aid is at bedside. Has no complains Vital Signs Temperature 97.6 F 07/24/17 13:31 Pulse Rate 78 07/24/17 13:31 Respiratory Rate 18 07/24/17 09:00 Blood Pressure 129/60 07/24/17 13:31 O2 Sat by Pulse Oximetry (%) 96 07/24/17 11:04 GENERAL: Awake, alert, in NAD, cervical collar on HEAD: Normal with no signs of trauma. 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 Moist mucous membranes. LUNGS: mild wheezing and rhonchi, poor inspiratory effort, breathing at normal rate HEART: Regular rate and rhythm, normal S1 and S2 without murmur, rub or gallop. ABDOMEN: Soft, nontender, not distended, normoactive bowel sounds, no guarding, no rebound, no masses. No hepatomegaly or splenomegaly. MUSCULOSKELETAL: bandages overlying L hip incision with justin and surrounding ecchymosis. no edema b/l NEUROLOGICAL: Cranial nerves II-XII intact. Normal speech. Psych: back to his norm CBCD WBC 5.3 K/mm3 (4.0-10.0) 07/24/17 07:30 RBC 2.64 M/mm3 (4.00-5.60) L 07/24/17 07:30 Hgb 8.4 GM/dL (11.7-16.9) L 07/24/17 07:30 Hct 25.1 % (35.4-49) L 07/24/17 07:30 MCV 95.0 fl (80-96) 07/24/17 07:30 MCHC 33.6 g/dl (32.0-35.9) 07/24/17 07:30 RDW 14.4 % (11.9-15.9) 07/24/17 07:30 Plt Count 381 K/MM3 (134-434) 07/24/17 07:30 MPV 7.6 fl (7.5-11.1) 07/24/17 07:30 CMP Sodium 139 mmol/L (136-145) 07/24/17 07:30 Potassium 4.2 mmol/L (3.5-5.1) 07/24/17 07:30 Chloride 107 mmol/L (98-107) 07/24/17 07:30 Carbon Dioxide 25 mmol/L (21-32) 07/24/17 07:30 Anion Gap 7 (8-16) L 07/24/17 07:30 BUN 24 mg/dL (7-18) H D 07/24/17 07:30 Creatinine 1.2 mg/dL (0.7-1.3) 07/24/17 07:30 Creat Clearance w eGFR 57.01 (>60) 07/24/17 07:30 Random Glucose 87 mg/dL (74-106) 07/24/17 07:30 Calcium 7.6 mg/dL (8.5-10.1) L 07/24/17 07:30 Total Bilirubin 0.5 mg/dL (0.2-1.0) 07/24/17 07:30 AST 18 U/L (15-37) D 07/24/17 07:30 ALT 6 U/L (12-78) L 07/24/17 07:30 Alkaline Phosphatase 114 U/L (45-117) 07/24/17 07:30 Total Protein 4.9 g/dl (6.4-8.2) L 07/24/17 07:30 Albumin 2.1 g/dl (3.4-5.0) L 07/24/17 07:30 CARDIAC ENZYMES Creatine Kinase 150 IU/L (39-308) 07/21/17 13:35 Troponin I < 0.02 ng/ml (0.00-0.05) 07/21/17 19:00 Current Medications Generic Name Dose Route Start Last Admin Trade Name Freq PRN Reason Stop Dose Admin Acetaminophen 650 mg 07/21/17 16:32 07/23/17 01:57 Tylenol - PO 650 mg Q4H PRN Administration FEVER OR PAIN Albuterol/Ipratropium 1 amp 07/22/17 00:00 07/24/17 11:05 Duoneb - NEB 1 amp QIDR [facility] Administration Atorvastatin Calcium 20 mg 07/21/17 22:00 07/23/17 21:48 Lipitor - PO 20 mg HS [facility] Administration Carbidopa/Levodopa 1 combo 07/21/17 22:00 07/24/17 10:38 Sinemet *Cr* 25/100 - PO 1 combo BID [facility] Administration Cholecalciferol 10,000 unit 07/23/17 11:00 Vitamin D3 - PO Q7D [facility] Clopidogrel Bisulfate 75 mg 07/22/17 10:00 07/24/17 10:38 Plavix - PO 75 mg DAILY [facility] Administration Cyanocobalamin 1,000 mcg 07/22/17 10:00 07/24/17 10:39 Vitamin B12 Injection - IM 1,000 mcg DAILY [facility] Administration Docusate Sodium 100 mg 07/21/17 22:00 07/24/17 10:38 Colace - PO 100 mg BID [facility] Administration Enoxaparin Sodium 40 mg 07/21/17 16:45 07/24/17 10:38 Lovenox - SQ 40 mg DAILY [facility] Administration Finasteride 5 mg 07/22/17 10:00 07/24/17 10:38 Proscar - PO 5 mg DAILY [facility] Administration Folic Acid 1 mg 07/22/17 10:00 07/24/17 10:38 Folic Acid - PO 1 mg DAILY [facility] Administration Piperacillin Sod/Tazobactam 50 mls @ 100 mls/hr 07/22/17 16:00 07/24/17 10:39 Sod 3.375 gm/ Dextrose IVPB 100 mls/hr Q8H-IV [facility] Administration Protocol Levetiracetam 500 mg 07/21/17 22:00 07/24/17 10:38 Keppra - PO 500 mg BID [facility] Administration Metoprolol Succinate 50 mg 07/21/17 22:00 07/23/17 21:48 Toprol Xl - PO 50 mg HS [facility] Administration Pantoprazole Sodium 40 mg 07/22/17 07:00 07/24/17 06:08 Protonix - PO 40 mg ACBK [facility] Administration Phenytoin Sodium 100 mg 07/22/17 10:00 07/24/17 10:38 Dilantin - PO 100 mg DAILY [facility] Administration Polyethylene Glycol 17 gm 07/22/17 10:00 07/24/17 10:39 Miralax (For Daily Use) - PO 17 grams DAILY [facility] Administration Tamsulosin HCl 0.4 mg 07/22/17 10:00 07/24/17 10:38 Flomax - PO 0.4 mg DAILY [facility] Administration Home Medications Medication Instructions Recorded Levetiracetam [Keppra -] 500 mg PO BID 02/18/14 Simvastatin [Zocor -] 40 mg PO HS 02/18/14 Tamsulosin HCl [Flomax -] 0.4 mg PO DAILY 02/18/14 Omeprazole 40 mg PO ACBK 03/12/14 Clopidogrel Bisulfate [Clopidogrel] 75 mg PO DAILY 05/07/14 Ergocalciferol (Vitamin D2) 10,000 units PO WEEKLY 07/11/16 [Drisdol] Finasteride [Proscar -] 5 mg PO DAILY 07/11/16 Carbidopa/Levodopa *Cr* 25/100 1 combo PO BID 07/12/16 [Sinemet *Cr* 25/100 -] Docusate Sodium [Colace -] 100 mg PO BID #60 capsule 07/14/16 Polyethylene Glycol 3350 [Miralax 17 gm PO DAILY #1 bottle 07/14/16 119 gm Btl -] Acetaminophen [Tylenol .Regular 650 mg PO Q4H PRN #0 tablet 09/06/16 Strength -] Albuterol 0.083% Nebulizer Aida 1 amp NEB Q6H PRN #30 amp 09/14/16 [Ventolin 0.083% Nebulizer Soln -] Albuterol Sulfate Inhaler - 1 puff IH Q6H PRN #1 inhaler 09/14/16 [Ventolin HFA Inhaler -] Miscellaneous Medical Supply 1 each ASDIR #1 misc 07/15/17 [Outpatient Order] Miscellaneous Medical Supply 1 each ASDIR #1 misc 07/15/17 [Outpatient Order] Amox-Tr/K Cl [Augmentin 250-125mg 1 tab PO BID@0800,1730 #14 tablet 07/16/17 Tablet -] Cyanocobalamin Vit B-12 Inj. 1,000 mcg IM DAILY #1 vial 07/16/17 [Vitamin B12 Injection -] Folic Acid - 1 mg PO DAILY #30 tablet 07/16/17 Metoprolol Succinate [Toprol XL -] 50 mg PO HS #30 tab 07/16/17 Miscellaneous Drug Not In Syst 1 each ASDIR #1 misc 07/16/17 [Outpatient Lab Test] Miscellaneous Medical Supply 1 each ASDIR #1 misc 07/16/17 [Outpatient Order] Phenytoin Na Extended [Dilantin -] 100 mg PO DAILY #30 cap 07/16/17 Microbiology 07/21/17 14:49 Blood - Peripheral Venous Blood Culture - Preliminary NO GROWTH OBTAINED AFTER 72 HOURS, INCUBATION TO CONTINUE FOR 2 DAYS. 07/21/17 14:49 Blood - Peripheral Venous Blood Culture - Preliminary NO GROWTH OBTAINED AFTER 72 HOURS, INCUBATION TO CONTINUE FOR 2 DAYS. 07/22/17 07:00 Urine - Urine Clean Catch Urine Culture - Final Pseudomonas Aeruginosa 07/21/17 21:45 Nasopharyngeal Swab Influenza Types A,B Antigen (ROLANDA) - Preliminary 07/21/17 21:45 Nasopharyngeal Swab - Preliminary Ct scan of the chest: positive for IVC filter. reviewed. ASSESSMENT AND PLAN: This is an 87 year old man with a history of seizures, CVA, Parkinson disease, HTN, hyperlipidemia, GERD, BPH, recent left hip fracture who presents to the ER with fever, cough, SOB and wheezing for several days. # s/p Severe sepsis presented with lactic acid 3.2 -->1.8-->1.0 today , now stable on IV antibiotics zosyn and vancomycin, continue IV fluid. Blood cultures neg.so far, Ua is growing GNB 30-40K , will monitor. ID on the case # Recent left intertrochanteric femur fracture s/p ORIF 07/13 # Hx of Seizure disorder continue Keppra, Dilantin # Acute Hyponatremia improved the level is 139 today s/p IVF # History of CVA # Parkinson disease Continue Sinemet # Hypertension Continue Toprol XL # Hyperlipidemia Continue Zocor # GERD Continue Prilosec # BPH Continue Flomax, Proscar # Hx of C1 fracture Continue cervical collar for total of 10 weeks as per neurosurgery evaluation, DVt Px: Lovenox sq Visit type - Emergency Visit Emergency Visit: Yes ED Registration Date: 07/21/17 Care time: The patient presented to the Emergency Department on the above date and was hospitalized for further evaluation of their emergent condition. - New Patient This patient is new to me today: No - Critical Care Critical Care patient: No
--- NOTE | 2017-07-24 16:03 | PN ---
Progress Note, Physician History of Present Illness: Pt is alert. Denies shortness of breath. No new specific complaints. - Current Medication List Current Medications: Active Medications Acetaminophen (Tylenol -) 650 mg PO Q4H PRN PRN Reason: FEVER OR PAIN Last Admin: 07/23/17 01:57 Dose: 650 mg Albuterol/Ipratropium (Duoneb -) 1 amp NEB QIDR [facility] Last Admin: 07/24/17 11:05 Dose: 1 amp Atorvastatin Calcium (Lipitor -) 20 mg PO HS [facility] Last Admin: 07/23/17 21:48 Dose: 20 mg Carbidopa/Levodopa (Sinemet *Cr* 25/100 -) 1 combo PO BID [facility] Last Admin: 07/24/17 10:38 Dose: 1 combo Cholecalciferol (Vitamin D3 -) 10,000 unit PO Q7D [facility] Clopidogrel Bisulfate (Plavix -) 75 mg PO DAILY [facility] Last Admin: 07/24/17 10:38 Dose: 75 mg Cyanocobalamin (Vitamin B12 Injection -) 1,000 mcg IM DAILY [facility] Last Admin: 07/24/17 10:39 Dose: 1,000 mcg Docusate Sodium (Colace -) 100 mg PO BID [facility] Last Admin: 07/24/17 10:38 Dose: 100 mg Enoxaparin Sodium (Lovenox -) 40 mg SQ DAILY [facility] Last Admin: 07/24/17 10:38 Dose: 40 mg Finasteride (Proscar -) 5 mg PO DAILY [facility] Last Admin: 07/24/17 10:38 Dose: 5 mg Folic Acid (Folic Acid -) 1 mg PO DAILY [facility] Last Admin: 07/24/17 10:38 Dose: 1 mg Piperacillin Sod/Tazobactam (Sod 3.375 gm/ Dextrose) 50 mls @ 100 mls/hr IVPB Q8H-IV [facility] PRN Reason: Protocol Last Admin: 07/24/17 10:39 Dose: 100 mls/hr Levetiracetam (Keppra -) 500 mg PO BID [facility] Last Admin: 07/24/17 10:38 Dose: 500 mg Metoprolol Succinate (Toprol Xl -) 50 mg PO HS [facility] Last Admin: 07/23/17 21:48 Dose: 50 mg Pantoprazole Sodium (Protonix -) 40 mg PO ACBK [facility] Last Admin: 07/24/17 06:08 Dose: 40 mg Phenytoin Sodium (Dilantin -) 100 mg PO DAILY [facility] Last Admin: 07/24/17 10:38 Dose: 100 mg Polyethylene Glycol (Miralax (For Daily Use) -) 17 gm PO DAILY [facility] Last Admin: 07/24/17 10:39 Dose: 17 grams Tamsulosin HCl (Flomax -) 0.4 mg PO DAILY [facility] Last Admin: 07/24/17 10:38 Dose: 0.4 mg - Objective Vital Signs: Vital Signs Temperature 97.6 F 07/24/17 13:31 Pulse Rate 78 07/24/17 13:31 Respiratory Rate 18 07/24/17 09:00 Blood Pressure 129/60 07/24/17 13:31 O2 Sat by Pulse Oximetry (%) 96 07/24/17 11:04 Constitutional: Yes: No Distress Neck: Yes: Other (neck collar on) Cardiovascular: Yes: Regular Rate and Rhythm Respiratory: Yes: Other (mild wheeze) Gastrointestinal: Yes: Normal Bowel Sounds, Soft Genitourinary: Yes: WNL Musculoskeletal: Yes: WNL Extremities: Yes: WNL Integumentary: Yes: WNL Neurological: Yes: Alert Labs: CBC, BMP 07/24/17 07:30 07/24/17 07:30 Microbiology 07/21/17 14:49 Blood Culture - Preliminary Blood - Peripheral Venous NO GROWTH OBTAINED AFTER 72 HOURS, INCUBATION TO CONTINUE FOR 2 DAYS. 07/21/17 14:49 Blood Culture - Preliminary Blood - Peripheral Venous NO GROWTH OBTAINED AFTER 72 HOURS, INCUBATION TO CONTINUE FOR 2 DAYS. 07/22/17 07:00 Urine Culture - Final Urine - Urine Clean Catch Pseudomonas Aeruginosa - ....Imaging Chest X-ray: Report Reviewed Problem List - Problems (1) Hypoxia Code(s): R09.02 - HYPOXEMIA (2) Pneumonia Code(s): J18.9 - PNEUMONIA, UNSPECIFIED ORGANISM Qualifiers: Pneumonia type: due to unspecified organism Laterality: unspecified laterality Lung location: unspecified part of lung Qualified Code(s): J18.9 - Pneumonia, unspecified organism (3) Acetabular fracture Code(s): S32.409A - UNSP FRACTURE OF UNSP ACETABULUM, INIT FOR CLOS FX (4) Anemia Code(s): D64.9 - ANEMIA, UNSPECIFIED (5) Elevated lactic acid level Code(s): E87.2 - ACIDOSIS (6) Fever Code(s): R50.9 - FEVER, UNSPECIFIED Qualifiers: Fever type: unspecified Qualified Code(s): R50.9 - Fever, unspecified (7) BPH (benign prostatic hyperplasia) Code(s): N40.0 - BENIGN PROSTATIC HYPERPLASIA WITHOUT LOWER URINRY TRACT SYMP (8) DVT (deep venous thrombosis) Code(s): I82.409 - ACUTE EMBOLISM AND THOMBOS UNSP DEEP VN UNSP LOWER EXTREMITY Qualifiers: DVT location: lower extremity Affected thrombotic vein of extremity: femoral Chronicity: acute Laterality: left Qualified Code(s): I82.412 - Acute embolism and thrombosis of left femoral vein (9) GERD with apnea Code(s): K21.9 - GASTRO-ESOPHAGEAL REFLUX DISEASE WITHOUT ESOPHAGITIS R06.81 - APNEA, NOT ELSEWHERE CLASSIFIED (10) Hyperlipidemia Code(s): E78.5 - HYPERLIPIDEMIA, UNSPECIFIED Qualifiers: Hyperlipidemia type: pure hypercholesterolemia (11) Hypertension Code(s): I10 - ESSENTIAL (PRIMARY) HYPERTENSION Qualifiers: Hypertension type: essential hypertension Qualified Code(s): I10 - Essential (primary) hypertension (12) UTI (urinary tract infection) Code(s): N39.0 - URINARY TRACT INFECTION, SITE NOT SPECIFIED Assessment/Plan Possible PNA, ? Aspirating pt appears stable for now consider repeat cxr cont antibiotics for now cont monitor vitals
[2017-07-24] MEDS: METOPROLOL SUCCINATE 50 MG TAB.SR.24H (FP) PO SCH (22:04)
[2017-07-24] MEDS: ATORVASTATIN CA 20 MG TABLET (FP) PO SCH (22:04)
[2017-07-25] MEDS ORDERED: PIPERACILLIN/TAZOBACTAM 3.375 GM VIAL IVPB ONE ×3 (01:24→17:23)
[2017-07-25] MEDS ORDERED: DEXTROSE 5%-WATER - 50 ML IVPB ONE ×3 (01:25→17:24)
[2017-07-25] MEDS: PIPERACILLIN/TAZOB 3.375 GM 3.375 GM in DEXTROSE 5%-WATER - 50 ML IVPB SCH ×3 (01:39→18:06)
[2017-07-25] MEDS: PANTOPRAZOLE 40 MG TABLET (FP) PO SCH (06:07)
[2017-07-25] MEDS: ALBUTEROL SO4 2.5/IPRATROPIUM 0.5 INH SOL 3 ML VIAL.NEB. NEB SCH ×4 (06:10→23:55)
[2017-07-25 08:26] LABS: BASOPHIL 0.9 % (0-2.0); EOSINOPHIL 3.9 % (0-4.5); MCH 32.2 pg (25.7-33.7); MCHC 33.4 g/dl (32.0-35.9); MEAN CELL VOLUME 96.5 fl (80-96); NEUTROPHILS 79.4 % (42.8-82.8); PLATELET COUNT 431 K/MM3 (134-434); RDW 14.1 % (11.9-15.9); WHITE BLOOD COUNT 6.9 K/mm3 (4.0-10.0)
[2017-07-25] MEDS: PHENYTOIN NA EXTENDED 100 MG CAPSULE (FP) PO SCH (10:25)
[2017-07-25] MEDS: CLOPIDOGREL BISULFATE 75 MG TABLET (FP) PO SCH (10:25)
[2017-07-25] MEDS: FOLIC ACID 1 MG TABLET (FP) PO SCH (10:25)
[2017-07-25] MEDS: ENOXAPARIN NA (PORCINE) 40 MG/0.4 ML DISP.SYRIN SQ SCH (10:25)
[2017-07-25] MEDS: DOCUSATE SODIUM 100 MG CAPSULE (FP) PO SCH ×2 (10:25→21:33)
[2017-07-25] MEDS: FINASTERIDE 5 MG TABLET (FP) PO SCH (10:25)
[2017-07-25] MEDS: TAMSULOSIN HCL 0.4 MG CAP.ER.24H (FP) PO SCH (10:25)
[2017-07-25] MEDS: levETIRAcetam 500 MG TABLET (FP) PO SCH ×2 (10:25→21:32)
[2017-07-25] MEDS: CYANOCOBALAMIN (VITAMIN B-12) 1000 MCG/1 ML VIAL IM SCH (10:26)
[2017-07-25] MEDS: POLYETHYLENE GLYCOL 3350 119 GM BTL PO SCH (10:26)
--- NOTE | 2017-07-25 15:19 | PN ---
Progress Note, Physician History of Present Illness: patient stable no new issues much more awake alert - Current Medication List Current Medications: Active Medications Acetaminophen (Tylenol -) 650 mg PO Q4H PRN PRN Reason: FEVER OR PAIN Last Admin: 07/23/17 01:57 Dose: 650 mg Albuterol/Ipratropium (Duoneb -) 1 amp NEB QIDR [facility] Last Admin: 07/25/17 11:08 Dose: 1 amp Atorvastatin Calcium (Lipitor -) 20 mg PO HS [facility] Last Admin: 07/24/17 22:04 Dose: 20 mg Carbidopa/Levodopa (Sinemet *Cr* 25/100 -) 1 combo PO BID [facility] Last Admin: 07/25/17 10:25 Dose: 1 combo Cholecalciferol (Vitamin D3 -) 10,000 unit PO Q7D [facility] Clopidogrel Bisulfate (Plavix -) 75 mg PO DAILY [facility] Last Admin: 07/25/17 10:25 Dose: 75 mg Cyanocobalamin (Vitamin B12 Injection -) 1,000 mcg IM DAILY [facility] Last Admin: 07/25/17 10:26 Dose: 1,000 mcg Docusate Sodium (Colace -) 100 mg PO BID [facility] Last Admin: 07/25/17 10:25 Dose: 100 mg Enoxaparin Sodium (Lovenox -) 40 mg SQ DAILY [facility] Last Admin: 07/25/17 10:25 Dose: 40 mg Finasteride (Proscar -) 5 mg PO DAILY [facility] Last Admin: 07/25/17 10:25 Dose: 5 mg Folic Acid (Folic Acid -) 1 mg PO DAILY [facility] Last Admin: 07/25/17 10:25 Dose: 1 mg Piperacillin Sod/Tazobactam (Sod 3.375 gm/ Dextrose) 50 mls @ 100 mls/hr IVPB Q8H-IV [facility] PRN Reason: Protocol Last Admin: 07/25/17 10:25 Dose: 100 mls/hr Levetiracetam (Keppra -) 500 mg PO BID [facility] Last Admin: 07/25/17 10:25 Dose: 500 mg Metoprolol Succinate (Toprol Xl -) 50 mg PO HS [facility] Last Admin: 07/24/17 22:04 Dose: 50 mg Pantoprazole Sodium (Protonix -) 40 mg PO ACBK [facility] Last Admin: 09/18/17 06:07 Dose: 40 mg Phenytoin Sodium (Dilantin -) 100 mg PO DAILY [facility] Last Admin: 07/25/17 10:25 Dose: 100 mg Polyethylene Glycol (Miralax (For Daily Use) -) 17 gm PO DAILY [facility] Last Admin: 07/25/17 10:26 Dose: 17 grams Tamsulosin HCl (Flomax -) 0.4 mg PO DAILY [facility] Last Admin: 07/25/17 10:25 Dose: 0.4 mg - Objective Vital Signs: Vital Signs Temperature 98.4 F 07/25/17 14:24 Pulse Rate 79 07/25/17 14:24 Respiratory Rate 20 07/25/17 14:24 Blood Pressure 114/66 07/25/17 14:24 O2 Sat by Pulse Oximetry (%) 94 L 07/25/17 09:28 Constitutional: Yes: No Distress, Calm Cardiovascular: Yes: Regular Rate and Rhythm Respiratory: Yes: Regular, CTA Bilaterally Gastrointestinal: Yes: Normal Bowel Sounds, Soft Musculoskeletal: Yes: WNL Extremities: Yes: WNL Neurological: Yes: Alert, Oriented Psychiatric: Yes: Alert, Oriented Labs: CBC, BMP 07/25/17 07:30 07/24/17 07:30 Assessment/Plan Sepsis seizure disorder parkinson's disorde HTN HLD lactic acidosis r/o pn plan patient can be discharged on levaquin 4 days rest continue curent mgmt
--- NOTE | 2017-07-25 15:40 | PN ---
Physical Exam: SUBJECTIVE: Patient seen and examined. No acute events overnight. Pt reports no new problems. He denies SOB, cough, wheezing, chest pain, and leg pain. OBJECTIVE: Vital Signs Period Temp Pulse Resp BP Sys/Baig Pulse Ox Last 24 Hr 97.8 F-98.4 F 79-86 20-20 114-136/66-76 94-97 GENERAL: Awake, alert, in NAD, cervical collar on HEAD: Normal with no signs of trauma. 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 Moist mucous membranes. LUNGS: poor inspiratory effort, breathing at normal rate, no wheezing, no rales , no rhonchi HEART: Regular rate and rhythm, normal S1 and S2 without murmur, rub or gallop. ABDOMEN: Soft, nontender, not distended, normoactive bowel sounds, no guarding, no rebound, no masses. No hepatomegaly or splenomegaly. MUSCULOSKELETAL: bandages overlying L hip incision with justin and surrounding ecchymosis. 1+ pitting edema b/l LE NEUROLOGICAL: Cranial nerves II-XII intact. Normal speech. Laboratory Results - last 24 hr 07/25/17 07:30 WBC 6.9 D RBC 2.91 L Hgb 9.4 L D Hct 28.1 L MCV 96.5 H MCH 32.2 MCHC 33.4 RDW 14.1 Plt Count 431 MPV 7.0 L Neutrophils % 79.4 Lymphocytes % 7.2 L D Monocytes % 8.6 Eosinophils % 3.9 Basophils % 0.9 Active Medications Generic Name Dose Route Start Last Admin Trade Name Jamesq PRN Reason Stop Dose Admin Acetaminophen 650 mg 07/21/17 16:32 07/23/17 01:57 Tylenol - PO 650 mg Q4H PRN Administration FEVER OR PAIN Albuterol/Ipratropium 1 amp 07/22/17 00:00 07/25/17 11:08 Duoneb - NEB 1 amp QIDR SARAVANAN Administration Atorvastatin Calcium 20 mg 07/21/17 22:00 07/24/17 22:04 Lipitor - PO 20 mg HS SARAVANAN Administration Carbidopa/Levodopa 1 combo 07/21/17 22:00 07/25/17 10:25 Sinemet *Cr* 25/100 - PO 1 combo BID SARAVANAN Administration Cholecalciferol 10,000 unit 07/23/17 11:00 Vitamin D3 - PO Q7D SARAVANAN Clopidogrel Bisulfate 75 mg 07/22/17 10:00 07/25/17 10:25 Plavix - PO 75 mg DAILY SARAVANAN Administration Cyanocobalamin 1,000 mcg 07/22/17 10:00 07/25/17 10:26 Vitamin B12 Injection - IM 1,000 mcg DAILY SARAVANAN Administration Docusate Sodium 100 mg 07/21/17 22:00 07/25/17 10:25 Colace - PO 100 mg BID SARAVANAN Administration Enoxaparin Sodium 40 mg 07/21/17 16:45 07/25/17 10:25 Lovenox - SQ 40 mg DAILY SARAVANAN Administration Finasteride 5 mg 07/22/17 10:00 07/25/17 10:25 Proscar - PO 5 mg DAILY SARAVANAN Administration Folic Acid 1 mg 07/22/17 10:00 07/25/17 10:25 Folic Acid - PO 1 mg DAILY SARAVANAN Administration Piperacillin Sod/Tazobactam 50 mls @ 100 mls/hr 07/22/17 16:00 07/25/17 10:25 Sod 3.375 gm/ Dextrose IVPB 100 mls/hr Q8H-IV SARAVANAN Administration Protocol Levetiracetam 500 mg 07/21/17 22:00 07/25/17 10:25 Keppra - PO 500 mg BID SARAVANAN Administration Metoprolol Succinate 50 mg 07/21/17 22:00 07/24/17 22:04 Toprol Xl - PO 50 mg HS SARAVANAN Administration Pantoprazole Sodium 40 mg 07/22/17 07:00 07/25/17 06:07 Protonix - PO 40 mg ACBK SARAVANAN Administration Phenytoin Sodium 100 mg 07/22/17 10:00 07/25/17 10:25 Dilantin - PO 100 mg DAILY SARAVANAN Administration Polyethylene Glycol 17 gm 07/22/17 10:00 07/25/17 10:26 Miralax (For Daily Use) - PO 17 grams DAILY SARAVANAN Administration Tamsulosin HCl 0.4 mg 07/22/17 10:00 07/25/17 10:25 Flomax - PO 0.4 mg DAILY SARAVANAN Administration ASSESSMENT/PLAN: Pt is a 87yo M w/ hx of seizure Disorder, Parkinsons, prior CVA in 2012, and recent hospitalization for hip surgery s/p fall (07/13/2017) who presents with fever, SOB, tachypnea, found to have a lactic acid of 3, admitted for severe sepsis possibly 2/2 HCAP vs. UTI. #Severe Sepsis -2/2 HCAP vs. UTI. PE ruled out on CT angiogram. -continue zosyn (day 4) -APAP for fever/pain -urine culture: grew pseudomonas aeruginosa that is womack-sensitive -blood cultures negative to date -sputum cultures: uncollected -influenza Ag: preliminarily negative, f/u final result -ID on board- Dr. Scott, appreciated recs to discharge on levaquin #tachypnea/SOB- improving -possibly 2/2 HCAP -CXR today shows no interval change and no acute pathology -O2 via NC -duonebs q6h standing -incentive spirometry -monitor vital signs #Hip repair -ortho consulted to remove justin #seizure disorder -continue phenytoin 100mg qd, keppra 500mg BID #parkinson's disorder -continue sinemet 25/100 BID #HTN -continue toprol 50 #HLD -continue lipitor 20mg qd #BPH -continue flomax and finasteride #constipation -docusate 100mg BID and miralax 17g #Hx of CVA -continue plavix #Hx of anemia -continue folic acid and vit. B12 #FEN/PPx -no fluids -no BMP today -sodium controlled diet -lovenox 40 -protonix 40 #Dispo -per ID, pt ready for discharge on levaquin -per social media marketing specialist, pt still awaiting acceptance to [facility]. Discharge pending acceptance. -discharge on vitamin B12 once a week for 4 weeks, then once monthly. ---- Rancho Leon MD PGY1 Visit type - Emergency Visit Emergency Visit: Yes ED Registration Date: 07/21/17 Care time: The patient presented to the Emergency Department on the above date and was hospitalized for further evaluation of their emergent condition. - New Patient This patient is new to me today: No - Critical Care Critical Care patient: No
--- NOTE | 2017-07-25 16:03 | PN ---
Teaching Attending Note Name of Resident: Rancho Leon ATTENDING PHYSICIAN STATEMENT I saw and evaluated the patient. I reviewed the resident's note and discussed the case with the resident. I agree with the resident's findings and plan as documented. SUBJECTIVE: Patient is feeling better, with no acute distress. OBJECTIVE: Vital Signs Temperature 98.4 F 07/25/17 14:24 Pulse Rate 79 07/25/17 14:24 Respiratory Rate 20 07/25/17 14:24 Blood Pressure 114/66 07/25/17 14:24 O2 Sat by Pulse Oximetry (%) 94 L 07/25/17 09:28 CBCD WBC 6.9 K/mm3 (4.0-10.0) D 07/25/17 07:30 RBC 2.91 M/mm3 (4.00-5.60) L 07/25/17 07:30 Hgb 9.4 GM/dL (11.7-16.9) L D 07/25/17 07:30 Hct 28.1 % (35.4-49) L 07/25/17 07:30 MCV 96.5 fl (80-96) H 07/25/17 07:30 MCHC 33.4 g/dl (32.0-35.9) 07/25/17 07:30 RDW 14.1 % (11.9-15.9) 07/25/17 07:30 Plt Count 431 K/MM3 (134-434) 07/25/17 07:30 MPV 7.0 fl (7.5-11.1) L 07/25/17 07:30 CMP Sodium 139 mmol/L (136-145) 07/24/17 07:30 Potassium 4.2 mmol/L (3.5-5.1) 07/24/17 07:30 Chloride 107 mmol/L (98-107) 07/24/17 07:30 Carbon Dioxide 25 mmol/L (21-32) 07/24/17 07:30 Anion Gap 7 (8-16) L 07/24/17 07:30 BUN 24 mg/dL (7-18) H D 07/24/17 07:30 Creatinine 1.2 mg/dL (0.7-1.3) 07/24/17 07:30 Creat Clearance w eGFR 57.01 (>60) 07/24/17 07:30 Random Glucose 87 mg/dL (74-106) 07/24/17 07:30 Calcium 7.6 mg/dL (8.5-10.1) L 07/24/17 07:30 Total Bilirubin 0.5 mg/dL (0.2-1.0) 07/24/17 07:30 AST 18 U/L (15-37) D 07/24/17 07:30 ALT 6 U/L (12-78) L 07/24/17 07:30 Alkaline Phosphatase 114 U/L (45-117) 07/24/17 07:30 Total Protein 4.9 g/dl (6.4-8.2) L 07/24/17 07:30 Albumin 2.1 g/dl (3.4-5.0) L 07/24/17 07:30 CARDIAC ENZYMES Creatine Kinase 150 IU/L (39-308) 07/21/17 13:35 Troponin I < 0.02 ng/ml (0.00-0.05) 07/21/17 19:00 Current Medications Generic Name Dose Route Start Last Admin Trade Name Freq PRN Reason Stop Dose Admin Acetaminophen 650 mg 07/21/17 16:32 07/23/17 01:57 Tylenol - PO 650 mg Q4H PRN Administration FEVER OR PAIN Albuterol/Ipratropium 1 amp 07/22/17 00:00 07/25/17 11:08 Duoneb - NEB 1 amp QIDR SARAVANAN Administration Atorvastatin Calcium 20 mg 07/21/17 22:00 07/24/17 22:04 Lipitor - PO 20 mg HS SARAVANAN Administration Carbidopa/Levodopa 1 combo 07/21/17 22:00 07/25/17 10:25 Sinemet *Cr* 25/100 - PO 1 combo BID SAARVANAN Administration Cholecalciferol 10,000 unit 07/23/17 11:00 Vitamin D3 - PO Q7D SARAVANAN Clopidogrel Bisulfate 75 mg 07/22/17 10:00 07/25/17 10:25 Plavix - PO 75 mg DAILY SARAVANAN Administration Cyanocobalamin 1,000 mcg 07/22/17 10:00 07/25/17 10:26 Vitamin B12 Injection - IM 1,000 mcg DAILY SARAVANAN Administration Docusate Sodium 100 mg 07/21/17 22:00 07/25/17 10:25 Colace - PO 100 mg BID SARAVANAN Administration Enoxaparin Sodium 40 mg 07/21/17 16:45 07/25/17 10:25 Lovenox - SQ 40 mg DAILY SARAVANAN Administration Finasteride 5 mg 07/22/17 10:00 07/25/17 10:25 Proscar - PO 5 mg DAILY SARAVANAN Administration Folic Acid 1 mg 07/22/17 10:00 07/25/17 10:25 Folic Acid - PO 1 mg DAILY SARAVANAN Administration Piperacillin Sod/Tazobactam 50 mls @ 100 mls/hr 07/22/17 16:00 07/25/17 10:25 Sod 3.375 gm/ Dextrose IVPB 100 mls/hr Q8H-IV SARAVANAN Administration Protocol Levetiracetam 500 mg 07/21/17 22:00 07/25/17 10:25 Keppra - PO 500 mg BID SARAVANAN Administration Metoprolol Succinate 50 mg 07/21/17 22:00 07/24/17 22:04 Toprol Xl - PO 50 mg HS SARAVANAN Administration Pantoprazole Sodium 40 mg 07/22/17 07:00 07/25/17 06:07 Protonix - PO 40 mg ACBK SARAVANAN Administration Phenytoin Sodium 100 mg 07/22/17 10:00 07/25/17 10:25 Dilantin - PO 100 mg DAILY SARAVANAN Administration Polyethylene Glycol 17 gm 07/22/17 10:00 07/25/17 10:26 Miralax (For Daily Use) - PO 17 grams DAILY SARAVANAN Administration Tamsulosin HCl 0.4 mg 07/22/17 10:00 07/25/17 10:25 Flomax - PO 0.4 mg DAILY SARAVANAN Administration Home Medications Medication Instructions Recorded Levetiracetam [Keppra -] 500 mg PO BID 02/18/14 Simvastatin [Zocor -] 40 mg PO HS 02/18/14 Tamsulosin HCl [Flomax -] 0.4 mg PO DAILY 02/18/14 Omeprazole 40 mg PO ACBK 03/12/14 Clopidogrel Bisulfate [Clopidogrel] 75 mg PO DAILY 05/07/14 Ergocalciferol (Vitamin D2) 10,000 units PO WEEKLY 07/11/16 [Drisdol] Finasteride [Proscar -] 5 mg PO DAILY 07/11/16 Carbidopa/Levodopa *Cr* 25/100 1 combo PO BID 07/12/16 [Sinemet *Cr* 25/100 -] Docusate Sodium [Colace -] 100 mg PO BID #60 capsule 07/14/16 Polyethylene Glycol 3350 [Miralax 17 gm PO DAILY #1 bottle 07/14/16 119 gm Btl -] Acetaminophen [Tylenol .Regular 650 mg PO Q4H PRN #0 tablet 09/06/16 Strength -] Albuterol 0.083% Nebulizer Aida 1 amp NEB Q6H PRN #30 amp 09/14/16 [Ventolin 0.083% Nebulizer Soln -] Albuterol Sulfate Inhaler - 1 puff IH Q6H PRN #1 inhaler 09/14/16 [Ventolin HFA Inhaler -] Miscellaneous Medical Supply 1 each ASDIR #1 misc 07/15/17 [Outpatient Order] Miscellaneous Medical Supply 1 each ASDIR #1 misc 07/15/17 [Outpatient Order] Amox-Tr/K Cl [Augmentin 250-125mg 1 tab PO BID@0800,1730 #14 tablet 07/16/17 Tablet -] Cyanocobalamin Vit B-12 Inj. 1,000 mcg IM DAILY #1 vial 07/16/17 [Vitamin B12 Injection -] Folic Acid - 1 mg PO DAILY #30 tablet 07/16/17 Metoprolol Succinate [Toprol XL -] 50 mg PO HS #30 tab 07/16/17 Miscellaneous Drug Not In Syst 1 each ASDIR #1 misc 07/16/17 [Outpatient Lab Test] Miscellaneous Medical Supply 1 each ASDIR #1 misc 07/16/17 [Outpatient Order] Phenytoin Na Extended [Dilantin -] 100 mg PO DAILY #30 cap 07/16/17 Ct scan of the chest: positive for IVC filter. reviewed. ASSESSMENT AND PLAN: This is an 87 year old man with a history of seizures, CVA, Parkinson disease, HTN, hyperlipidemia, GERD, BPH, recent left hip fracture who presents to the ER with fever, cough, SOB and wheezing for several days. # s/p Severe sepsis presented with lactic acid 3.2 -->1.8-->1.0 today , now stable on IV antibiotics zosyn now, s/p vancomycin, continue IV fluid. Blood cultures neg.so far, Ua is positive for GNB 30-40K , will continue to monitor. ID on the case # Recent left intertrochanteric femur fracture s/p ORIF 07/13 # Hx of Seizure disorder continue Keppra, Dilantin # Acute Hyponatremia improved the level is 139 today s/p IVF # History of CVA # Parkinson disease Continue Sinemet # Hypertension Continue Toprol XL # Hyperlipidemia Continue Zocor # GERD Continue Prilosec # BPH Continue Flomax, Proscar # Hx of C1 fracture Continue cervical collar for total of 10 weeks as per neurosurgery . DVt Px: Lovenox sq
[2017-07-25] MEDS: ATORVASTATIN CA 20 MG TABLET (FP) PO SCH (21:32)
[2017-07-25] MEDS: METOPROLOL SUCCINATE 50 MG TAB.SR.24H (FP) PO SCH (21:33)
[2017-07-26] MEDS ORDERED: DEXTROSE 5%-WATER - 50 ML IVPB ONE (02:31)
[2017-07-26] MEDS ORDERED: PIPERACILLIN/TAZOBACTAM 3.375 GM VIAL IVPB ONE (02:31)
[2017-07-26] MEDS: PIPERACILLIN/TAZOB 3.375 GM 3.375 GM in DEXTROSE 5%-WATER - 50 ML IVPB SCH ×2 (02:49→11:20)
[2017-07-26] MEDS: PANTOPRAZOLE 40 MG TABLET (FP) PO SCH (06:14)
[2017-07-26] MEDS: ALBUTEROL SO4 2.5/IPRATROPIUM 0.5 INH SOL 3 ML VIAL.NEB. NEB SCH ×2 (06:44→11:01)
[2017-07-26 08:19] VITALS: BP 115/76; TEMP 98
[2017-07-26 09:47] VITALS: PULSE 80
[2017-07-26] MEDS: FINASTERIDE 5 MG TABLET (FP) PO SCH (10:16)
[2017-07-26] MEDS: FOLIC ACID 1 MG TABLET (FP) PO SCH (10:16)
[2017-07-26] MEDS: TAMSULOSIN HCL 0.4 MG CAP.ER.24H (FP) PO SCH (10:16)
[2017-07-26] MEDS: DOCUSATE SODIUM 100 MG CAPSULE (FP) PO SCH (10:16)
[2017-07-26] MEDS: levETIRAcetam 500 MG TABLET (FP) PO SCH (10:17)
[2017-07-26] MEDS: CYANOCOBALAMIN (VITAMIN B-12) 1000 MCG/1 ML VIAL IM SCH (10:17)
[2017-07-26] MEDS: ENOXAPARIN NA (PORCINE) 40 MG/0.4 ML DISP.SYRIN SQ SCH (10:17)
[2017-07-26] MEDS: PHENYTOIN NA EXTENDED 100 MG CAPSULE (FP) PO SCH (10:17)
[2017-07-26] MEDS: CLOPIDOGREL BISULFATE 75 MG TABLET (FP) PO SCH (10:17)
[2017-07-26] MEDS: POLYETHYLENE GLYCOL 3350 119 GM BTL PO SCH (10:18)
[2017-07-26] MEDS ORDERED: PT OWN MED DRAWER 7, Y5N ONE (10:19)
--- NOTE | 2017-07-26 12:18 | PN ---
Teaching Attending Note Name of Resident: Rancho Leon ATTENDING PHYSICIAN STATEMENT I saw and evaluated the patient. I reviewed the resident's note and discussed the case with the resident. I agree with the resident's findings and plan as documented. SUBJECTIVE: Patient is feeling better today, his aid is at bedside. comfortable with no acute distress. OBJECTIVE: Vital Signs Temperature 98 F 07/26/17 08:18 Pulse Rate 80 07/26/17 09:46 Respiratory Rate 20 07/26/17 09:00 Blood Pressure 115/76 07/26/17 08:18 O2 Sat by Pulse Oximetry (%) 94 L 07/26/17 09:46 CBCD WBC 6.9 K/mm3 (4.0-10.0) D 07/25/17 07:30 RBC 2.91 M/mm3 (4.00-5.60) L 07/25/17 07:30 Hgb 9.4 GM/dL (11.7-16.9) L D 07/25/17 07:30 Hct 28.1 % (35.4-49) L 07/25/17 07:30 MCV 96.5 fl (80-96) H 07/25/17 07:30 MCHC 33.4 g/dl (32.0-35.9) 07/25/17 07:30 RDW 14.1 % (11.9-15.9) 07/25/17 07:30 Plt Count 431 K/MM3 (134-434) 07/25/17 07:30 MPV 7.0 fl (7.5-11.1) L 07/25/17 07:30 CMP Sodium 139 mmol/L (136-145) 07/24/17 07:30 Potassium 4.2 mmol/L (3.5-5.1) 07/24/17 07:30 Chloride 107 mmol/L (98-107) 07/24/17 07:30 Carbon Dioxide 25 mmol/L (21-32) 07/24/17 07:30 Anion Gap 7 (8-16) L 07/24/17 07:30 BUN 24 mg/dL (7-18) H D 07/24/17 07:30 Creatinine 1.2 mg/dL (0.7-1.3) 07/24/17 07:30 Creat Clearance w eGFR 57.01 (>60) 07/24/17 07:30 Random Glucose 87 mg/dL (74-106) 07/24/17 07:30 Calcium 7.6 mg/dL (8.5-10.1) L 07/24/17 07:30 Total Bilirubin 0.5 mg/dL (0.2-1.0) 07/24/17 07:30 AST 18 U/L (15-37) D 07/24/17 07:30 ALT 6 U/L (12-78) L 07/24/17 07:30 Alkaline Phosphatase 114 U/L (45-117) 07/24/17 07:30 Total Protein 4.9 g/dl (6.4-8.2) L 07/24/17 07:30 Albumin 2.1 g/dl (3.4-5.0) L 07/24/17 07:30 CARDIAC ENZYMES Creatine Kinase 150 IU/L (39-308) 07/21/17 13:35 Troponin I < 0.02 ng/ml (0.00-0.05) 07/21/17 19:00 Current Medications Generic Name Dose Route Start Last Admin Trade Name Freq PRN Reason Stop Dose Admin Acetaminophen 650 mg 07/21/17 16:32 07/23/17 01:57 Tylenol - PO 650 mg Q4H PRN Administration FEVER OR PAIN Albuterol/Ipratropium 1 amp 07/22/17 00:00 07/26/17 11:01 Duoneb - NEB 1 amp QIDR SARAVANAN Administration Atorvastatin Calcium 20 mg 07/21/17 22:00 07/25/17 21:32 Lipitor - PO 20 mg HS SARAVANAN Administration Carbidopa/Levodopa 1 combo 07/21/17 22:00 07/26/17 10:16 Sinemet *Cr* 25/100 - PO 1 combo BID SARAVANAN Administration Cholecalciferol 10,000 unit 07/23/17 11:00 Vitamin D3 - PO Q7D SARAVANAN Clopidogrel Bisulfate 75 mg 07/22/17 10:00 07/26/17 10:17 Plavix - PO 75 mg DAILY SARAVANAN Administration Cyanocobalamin 1,000 mcg 07/22/17 10:00 07/26/17 10:17 Vitamin B12 Injection - IM 1,000 mcg DAILY SARAVANAN Administration Docusate Sodium 100 mg 07/21/17 22:00 07/26/17 10:16 Colace - PO 100 mg BID SARAVANAN Administration Enoxaparin Sodium 40 mg 07/21/17 16:45 07/26/17 10:17 Lovenox - SQ 40 mg DAILY SARAVANAN Administration Finasteride 5 mg 07/22/17 10:00 07/26/17 10:16 Proscar - PO 5 mg DAILY SARAVANAN Administration Folic Acid 1 mg 07/22/17 10:00 07/26/17 10:16 Folic Acid - PO 1 mg DAILY SAARVANAN Administration Piperacillin Sod/Tazobactam 50 mls @ 100 mls/hr 07/22/17 16:00 07/26/17 11:20 Sod 3.375 gm/ Dextrose IVPB 100 mls/hr Q8H-IV SARAVANAN Administration Protocol Levetiracetam 500 mg 07/21/17 22:00 07/26/17 10:17 Keppra - PO 500 mg BID SARAVANAN Administration Metoprolol Succinate 50 mg 07/21/17 22:00 07/25/17 21:33 Toprol Xl - PO 50 mg HS SARAVANAN Administration Pantoprazole Sodium 40 mg 07/22/17 07:00 07/26/17 06:14 Protonix - PO 40 mg ACK SARAVANAN Administration Phenytoin Sodium 100 mg 07/22/17 10:00 07/26/17 10:17 Dilantin - PO 100 mg DAILY SARAVANAN Administration Polyethylene Glycol 17 gm 07/22/17 10:00 07/26/17 10:18 Miralax (For Daily Use) - PO 17 grams DAILY SARAVANAN Administration Tamsulosin HCl 0.4 mg 07/22/17 10:00 07/26/17 10:16 Flomax - PO 0.4 mg DAILY SARAVANAN Administration Home Medications Medication Instructions Recorded Levetiracetam [Keppra -] 500 mg PO BID 02/18/14 Simvastatin [Zocor -] 40 mg PO HS 02/18/14 Tamsulosin HCl [Flomax -] 0.4 mg PO DAILY 02/18/14 Omeprazole 40 mg PO ACBK 03/12/14 Clopidogrel Bisulfate [Clopidogrel] 75 mg PO DAILY 05/07/14 Ergocalciferol (Vitamin D2) 10,000 units PO WEEKLY 07/11/16 [Drisdol] Finasteride [Proscar -] 5 mg PO DAILY 07/11/16 Carbidopa/Levodopa *Cr* 25/100 1 combo PO BID 07/12/16 [Sinemet *Cr* 25/100 -] Docusate Sodium [Colace -] 100 mg PO BID #60 capsule 07/14/16 Polyethylene Glycol 3350 [Miralax 17 gm PO DAILY #1 bottle 07/14/16 119 gm Btl -] Acetaminophen [Tylenol .Regular 650 mg PO Q4H PRN #0 tablet 09/06/16 Strength -] Albuterol 0.083% Nebulizer Aida 1 amp NEB Q6H PRN #30 amp 09/14/16 [Ventolin 0.083% Nebulizer Soln -] Albuterol Sulfate Inhaler - 1 puff IH Q6H PRN #1 inhaler 09/14/16 [Ventolin HFA Inhaler -] Miscellaneous Medical Supply 1 each ASDIR #1 misc 07/15/17 [Outpatient Order] Miscellaneous Medical Supply 1 each ASDIR #1 misc 07/15/17 [Outpatient Order] Folic Acid - 1 mg PO DAILY #30 tablet 07/16/17 Metoprolol Succinate [Toprol XL -] 50 mg PO HS #30 tab 07/16/17 Miscellaneous Drug Not In Syst 1 each ASDIR #1 misc 07/16/17 [Outpatient Lab Test] Miscellaneous Medical Supply 1 each ASDIR #1 misc 07/16/17 [Outpatient Order] Phenytoin Na Extended [Dilantin -] 100 mg PO DAILY #30 cap 07/16/17 Cyanocobalamin Vit B-12 Inj. 1,000 mcg IM WEEKLY #1 vial 07/26/17 [Vitamin B12 Injection -] Levofloxacin [Levaquin] 500 mg PO DAILY #3 tablet 07/26/17 Ct scan of the chest: positive for IVC filter. reviewed. ASSESSMENT AND PLAN: This is an 87 year old man with a history of seizures, CVA, Parkinson disease, HTN, hyperlipidemia, GERD, BPH, recent left hip fracture who presents to the ER with fever, cough, SOB and wheezing for several days. # s/p Severe sepsis presented with lactic acid 3.2 -->1.8-->1.0 , Patient is being discharged to rehab. today on Levaquin since the culture is positive. received 4 days of IV antibiotics zosyn s/p vancomycin. # Recent left intertrochanteric femur fracture s/p ORIF 07/13 # Hx of Seizure disorder continue Keppra, Dilantin # Acute Hyponatremia improved the level is 139 today s/p IVF # History of CVA # Parkinson disease Continue Sinemet # Hypertension Continue Toprol XL # Hyperlipidemia Continue Zocor # GERD Continue Prilosec # BPH Continue Flomax, Proscar # Hx of C1 fracture Continue cervical collar for total of 10 weeks as per neurosurgery . DVt Px: Lovenox sq
--- NOTE | 2017-07-26 13:24 | DS ---
Physical Exam: SUBJECTIVE: Patient seen and examined. No acute events overnight. Pt denies SOB, cough, wheezing, chest pain, n/v/d/c, dysuria, and leg pain. OBJECTIVE: Vital Signs Period Temp Pulse Resp BP Sys/Baig Pulse Ox Last 24 Hr 98 F-98.4 F 78-85 20-20 112-139/59-76 94-99 PHYSICAL EXAM ENERAL: lying in bed, in NAD, cervical collar on HEAD: Normal with no signs of trauma. 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 Moist mucous membranes. LUNGS: poor inspiratory effort, breathing at normal rate, no wheezing, no rales , no rhonchi HEART: Regular rate and rhythm, normal S1 and S2 without murmur, rub or gallop. ABDOMEN: Soft, nontender, not distended, normoactive bowel sounds, no guarding, no rebound, no masses. No hepatomegaly or splenomegaly. MUSCULOSKELETAL: bandages overlying L hip incision, 1+ pitting edema b/l LE NEUROLOGICAL: Cranial nerves II-XII intact. Normal speech. LABS Laboratory Tests 07/21/17 07/21/17 07/21/17 13:35 13:35 13:35 WBC 9.0 RBC 3.48 L D Hgb 11.2 L D Hct 33.4 L D MCV 96.0 MCH 32.2 MCHC 33.6 RDW 14.2 Plt Count 337 D MPV 7.7 Neutrophils % 78.7 Lymphocytes % 9.1 D Monocytes % 9.5 Eosinophils % 2.1 D Basophils % 0.6 Sodium 137 Potassium 4.1 Chloride 101 Carbon Dioxide 23 Anion Gap 13 BUN 29 H Creatinine 1.1 Creat Clearance w eGFR > 60 Random Glucose 124 H D Lactic Acid 3.2 H* Calcium 7.9 L Total Bilirubin 0.7 AST 29 D ALT 27 D Alkaline Phosphatase 134 H D Creatine Kinase 150 Creatine Kinase Index 0.9 CK-MB (CK-2) 1.493 Troponin I < 0.02 Total Protein 5.8 L Albumin 2.4 L D Urine Color Urine Appearance Urine pH Ur Specific [place] Urine Protein Urine Glucose (UA) Urine Ketones Urine Blood Urine Nitrite Urine Bilirubin Urine Urobilinogen 07/21/17 07/21/17 07/22/17 17:55 19:00 07:00 WBC RBC Hgb Hct MCV MCH MCHC RDW Plt Count MPV Neutrophils % Lymphocytes % Monocytes % Eosinophils % Basophils % Sodium Potassium Chloride Carbon Dioxide Anion Gap BUN Creatinine Creat Clearance w eGFR Random Glucose Lactic Acid 1.8 Calcium Total Bilirubin AST ALT Alkaline Phosphatase Creatine Kinase Creatine Kinase Index CK-MB (CK-2) Troponin I < 0.02 Total Protein Albumin Urine Color Yellow Urine Appearance Slcloudy Urine pH 5.0 D Ur Specific [place] 1.010 Urine Protein Negative Urine Glucose (UA) Negative Urine Ketones Negative Urine Blood Negative Urine Nitrite Negative Urine Bilirubin Negative Urine Urobilinogen Negative 07/22/17 07/22/17 07/23/17 07:30 07:30 06:50 WBC 8.1 5.8 RBC 3.00 L 2.50 L Hgb 9.7 L D 8.1 L D Hct 28.3 L D 23.7 L D MCV 94.3 94.7 MCH 32.4 32.6 MCHC 34.3 34.4 RDW 14.1 13.9 Plt Count 360 321 MPV 7.6 7.3 L Neutrophils % 82.2 Lymphocytes % 5.7 L D Monocytes % 8.5 Eosinophils % 3.2 Basophils % 0.4 Sodium 133 L Potassium 4.2 Chloride 101 Carbon Dioxide 24 Anion Gap 8 BUN 31 H Creatinine 1.2 Creat Clearance w eGFR 57.01 Random Glucose 101 Lactic Acid Calcium 8.2 L Total Bilirubin 0.6 AST 31 ALT 7 L D Alkaline Phosphatase 122 H Creatine Kinase Creatine Kinase Index CK-MB (CK-2) Troponin I Total Protein 5.6 L Albumin 2.3 L Urine Color Urine Appearance Urine pH Ur Specific [place] Urine Protein Urine Glucose (UA) Urine Ketones Urine Blood Urine Nitrite Urine Bilirubin Urine Urobilinogen 07/23/17 07/24/17 07/24/17 06:50 07:30 07:30 WBC 5.3 RBC 2.64 L Hgb 8.4 L Hct 25.1 L MCV 95.0 MCH 32.0 MCHC 33.6 RDW 14.4 Plt Count 381 MPV 7.6 Neutrophils % 75.6 Lymphocytes % 9.5 D Monocytes % 9.2 Eosinophils % 5.0 H Basophils % 0.7 Sodium 139 Potassium 4.2 Chloride 107 Carbon Dioxide 25 Anion Gap 7 L BUN 24 H D Creatinine 1.2 Creat Clearance w eGFR 57.01 Random Glucose 87 Lactic Acid 1.0 Calcium 7.6 L Total Bilirubin 0.5 AST 18 D ALT 6 L Alkaline Phosphatase 114 Creatine Kinase Creatine Kinase Index CK-MB (CK-2) Troponin I Total Protein 4.9 L Albumin 2.1 L Urine Color Urine Appearance Urine pH Ur Specific [place] Urine Protein Urine Glucose (UA) Urine Ketones Urine Blood Urine Nitrite Urine Bilirubin Urine Urobilinogen 07/25/17 07:30 WBC 6.9 D RBC 2.91 L Hgb 9.4 L D Hct 28.1 L MCV 96.5 H MCH 32.2 MCHC 33.4 RDW 14.1 Plt Count 431 MPV 7.0 L Neutrophils % 79.4 Lymphocytes % 7.2 L D Monocytes % 8.6 Eosinophils % 3.9 Basophils % 0.9 Sodium Potassium Chloride Carbon Dioxide Anion Gap BUN Creatinine Creat Clearance w eGFR Random Glucose Lactic Acid Calcium Total Bilirubin AST ALT Alkaline Phosphatase Creatine Kinase Creatine Kinase Index CK-MB (CK-2) Troponin I Total Protein Albumin Urine Color Urine Appearance Urine pH Ur Specific [place] Urine Protein Urine Glucose (UA) Urine Ketones Urine Blood Urine Nitrite Urine Bilirubin Urine Urobilinogen Microbiology 07/21/17 21:45 Nasopharyngeal Swab Influenza Types A,B Antigen (ROLANDA) - Final 07/21/17 21:45 Nasopharyngeal Swab - Final 07/21/17 14:49 Blood - Peripheral Venous Blood Culture - Preliminary NO GROWTH OBTAINED AFTER 96 HOURS, INCUBATION TO CONTINUE FOR 1 DAYS. 07/21/17 14:49 Blood - Peripheral Venous Blood Culture - Preliminary NO GROWTH OBTAINED AFTER 96 HOURS, INCUBATION TO CONTINUE FOR 1 DAYS. 07/22/17 07:00 Urine - Urine Clean Catch Urine Culture - Final Pseudomonas Aeruginosa Imaging: CXR: negative for any acute pathology CT angiogram: no PE, + bibasilar atelectasis, interval development of mild, peribronchial thickening HOSPITAL COURSE: Date of Admission:07/21/17 Pt is a 87yo M w/ hx of seizure Disorder, Parkinsons, prior CVA in 2012, multiple other co-morbidities, and recent hospitalization for hip surgery s/p fall (07/13/2017) who presented with fever, SOB, tachypnea, found to have a lactic acid of 3, admitted for severe sepsis likely 2/2 HCAP vs. complicated UTI. Pt was given fluids, and his lactic acid trended to wnl. He was seen by ID , started on zosyn, and his fevers subsided. Because the pt's cough was unproductive, no respiratory cultures were able to be obtained. Blood cultures were negative. Pt's urine culture grew pseudomonas aeruginosa that was womack- sensitive. In the hospital, pt received 4 days of zosyn. Today, pt has normal vital signs, has no complaints, has a normal physical exam, and he is stable for discharge to [facility]. Pt is to finish his course of antibiotics with 3 more days of levaquin 500mg qd. Date of Discharge: 07/26/17 Minutes to complete discharge: 36 Discharge Summary Reason For Visit: HYPOXIA Condition: Improved - Instructions Diet, Activity, Other Instructions: You presented to the hospital with a cough, shortness of breath, wheezing, and a fever, and you were found to have a high lactic acid level. You were treated for a possible pneumonia with antibiotics. While here, your urine grew a bacteria called Pseudomonas, so it is possible that your fever was due to a urinary tract infection instead. The antibiotics that we have been giving you cover that bacteria. Please continue taking levaquin for another 3 days to finish your course of antibiotics. Please follow up with your PCP within one week. If you develop any concerning or worsening symptoms such as shortness of breath or chest pain, return to the ED. Referrals: Obdulio Archuleta MD, MD [Primary Care Provider] - Disposition: NURSING HOME FACILITY - Home Medications Comprehensive Discharge Medication List: Ambulatory Orders Levetiracetam [Keppra -] 500 mg PO BID 02/18/14 Simvastatin [Zocor -] 40 mg PO HS 02/18/14 Tamsulosin HCl [Flomax -] 0.4 mg PO DAILY 02/18/14 Omeprazole 40 mg PO ACBK 03/12/14 Clopidogrel Bisulfate [Clopidogrel] 75 mg PO DAILY 05/07/14 Ergocalciferol (Vitamin D2) [Drisdol] 10,000 units PO WEEKLY 07/11/16 Finasteride [Proscar -] 5 mg PO DAILY 07/11/16 Carbidopa/Levodopa *Cr* 25/100 [Sinemet *Cr* 25/100 -] 1 combo PO BID 07/12/16 Docusate Sodium [Colace -] 100 mg PO BID #60 capsule 07/14/16 Polyethylene Glycol 3350 [Miralax 119 gm Btl -] 17 gm PO DAILY #1 bottle Acetaminophen [Tylenol .Regular Strength -] 650 mg PO Q4H PRN #0 tablet Albuterol 0.083% Nebulizer Aida [Ventolin 0.083% Nebulizer Soln -] 1 amp NEB Q6H PRN #30 amp 09/14/16 Albuterol Sulfate Inhaler - [Ventolin HFA Inhaler -] 1 puff IH Q6H PRN #1 inhaler 09/14/16 Miscellaneous Medical Supply [Outpatient Order] 1 each ASDIR #1 misc Miscellaneous Medical Supply [Outpatient Order] 1 each ASDIR #1 misc Folic Acid - 1 mg PO DAILY #30 tablet 07/16/17 Metoprolol Succinate [Toprol XL -] 50 mg PO HS #30 tab 07/16/17 Miscellaneous Drug Not In Syst [Outpatient Lab Test] 1 each ASDIR #1 misc 07/24 Miscellaneous Medical Supply [Outpatient Order] 1 each ASDIR #1 misc Phenytoin Na Extended [Dilantin -] 100 mg PO DAILY #30 cap 07/16/17 Cyanocobalamin Vit B-12 Inj. [Vitamin B12 Injection -] 1,000 mcg IM WEEKLY #1 vial 07/26/17 Levofloxacin [Levaquin] 500 mg PO DAILY #3 tablet 07/26/17 This patient is new to me today: No Emergency Visit: Yes ED Registration Date: 07/21/17 Care time: The patient presented to the Emergency Department on the above date and was hospitalized for further evaluation of their emergent condition. Critical Care patient: No - Discharge Referral Referred to [facility] No
[2017-07-27] MEDS ORDERED: ERGOCALCIFEROL 8,000 UNITS/ML DROPSBTL PO SCH (10:00)
== END 2017-07-26 11:50 | DRG 871 ==
LOC: JER 12:55 → JERBED 15:50 → J6S 18:12
PROVIDERS: ADMIT Internal Medicine; ATTEND Internal Medicine
DX: A41.9 Sepsis, unspecified organism (principal); J18.9 Pneumonia, unspecified organism; E87.1 Hypo-osmolality and hyponatremia; R64 Cachexia; N39.0 Urinary tract infection, site not specified; I10 Essential (primary) hypertension; R65.20 Severe sepsis without septic shock; E78.5 Hyperlipidemia, unspecified; Z86.718 Personal history of other venous thrombosis and embolism; N40.0 Benign prostatic hyperplasia without lower urinary tract symptoms; G40.909 Epilepsy, unspecified, not intractable, without status epilepticus; G20 Parkinson's disease; K22.70 Barrett's esophagus without dysplasia; K59.00 Constipation, unspecified; D64.9 Anemia, unspecified; Y95 Nosocomial condition; K21.9 Gastro-esophageal reflux disease without esophagitis; B96.5 Pseudomonas (aeruginosa) (mallei) (pseudomallei) as the cause of diseases classified elsewhere; R09.02 Hypoxemia
CPT/HCPCS: 36415; 71010-TC; 71275-TC; 72131-TC; 80053; 81003; 82553; 83605; 84484; 85025; 85027; 87040; 87086; 87186; 87804; 93005; 93010; 94640; 97116-GP; 97162-GP; 99281-25